=== PATIENT | male | born 1945 | race Caucasian/White ===

== ENCOUNTER → 2016-10-22 | Outpatient (CLI) | payer MEDICARE ==
--- NOTE | 2016-10-22 17:29 | US ---
EXAMINATION TYPE: US venous doppler duplex UE LT DATE OF EXAM: 10/22/2016 COMPARISON: NONE CLINICAL HISTORY: Swelling of left hand R22.32. SIDE PERFORMED: left Grayscale, color doppler, spectral doppler imaging performed of the deep veins of the upper extremiti es. There is normal flow, compressibility and vascular waveforms. IMPRESSION: LEFT ARM: NEGATIVE FOR DVT
[2016-10-22 17:42] LABS: Basophils % (A) 0 %; CH 28.7; CHCM 32.3; Eosinophils # (A) 0.4 k/uL (0-0.7); Eosinophils % (A) 4 %; HCT 39.2 % (39.0-53.0); HDW 2.49; HGB 12.9 gm/dL (13.0-17.5); Luc # (Auto) 0.21; Luc % (Auto) 2; Lymphocytes # (A) 1.6 k/uL (1.0-4.8); Lymphocytes % (A) 15 %; MCH 29.5 pg (25.0-35.0); MCHC 32.9 g/dL (31.0-37.0); MCV 89.5 fL (80.0-100.0); Mean Platelet Volume 7.7; Monocytes # (A) 0.6 k/uL (0-1.0); Monocytes % (A) 5 %; Neutrophils # (A) 7.9 k/uL (1.3-7.7); Neutrophils % (A) 74 %; RBC 4.39 m/uL (4.30-5.90); RDW 12.9 % (11.5-15.5); WBC 10.7 k/uL (3.8-10.6); WBC (Perox) 11.15
[2016-10-22 18:04] LABS: Calcium 9.2 mg/dL (8.4-10.2); Potassium 4.6 mmol/L (3.5-5.1); Total Bilirubin 0.4 mg/dL (0.2-1.3); Total Protein 7.2 g/dL (6.3-8.2); Uric Acid 8.2 mg/dL (3.5-8.5)
[2016-10-22 18:39] LABS: Erythrocyte Sedimentation Rate 69 mm/hr (0-15)
== END | disposition home or self-care (01) ==
LOC: RADUSWWP 16:51
PROVIDERS: ATTEND Family Medicine
DX: R22.32 Localized swelling, mass and lump, left upper limb (principal)
CPT/HCPCS: 36415; 80053; 84550; 85025; 85652

== ENCOUNTER 2016-11-26 13:20 | Emergency (ER) | payer MEDICARE ==
[2016-11-26 13:30] VITALS: BP 147/88; PULSE 74; RESP 20; TEMP 98.1
[2016-11-26] MEDS ORDERED: PROPARACAINE 0.5% OPHTH DROPS 15 ML BTL RIGHT EYE STA (13:36)
--- NOTE | 2016-11-26 14:06 | ED ---
General Adult HPI - General Chief complaint: Eye Problems Stated complaint: FB rt eye (scratched cornea) Time Seen by Provider: 11/26/16 13:33 Source: patient, RN notes reviewed Mode of arrival: ambulatory Limitations: no limitations - History of Present Illness Initial comments: Patient 71-year-old male who presents emergency room today with a chief complaint of possible abrasion to the right eye. He does admit that he was walking just approximately 45 minutes ago when he did not see a tree branch that caught in the right eye. He does been some blurry vision. States he is tetanus not up-to-date as he is ALLERGIC to tetanus. He denies any other complaints or associated symptoms.Patient denies any recent fever, chills, shortness of breath, chest pain, back pain, abdominal pain, nausea or vomiting, numbness or tingling, dysuria or hematuria, constipation or diarrhea, headaches , or any other complaints. - Related Data Previous Rx's Medication Instructions Recorded Levofloxacin [Levaquin] 500 mg PO DAILY #7 tab 10/10/14 Tobramycin 0.3% Ophth Soln [Tobrex 1 - 2 drop BOTH EYES QID 7 Days 11/26/16 0.3% Ophth Soln] Allergies Allergy/AdvReac Type Severity Reaction Status Date / Time Penicillins Allergy Rash/Hives Verified 11/26/16 13:30 Sulfa (Sulfonamide Allergy Rash/Hives Verified 11/26/16 13:30 Antibiotics) Tetanus Vaccines and Toxoid Allergy Rash/Hives Verified 11/26/16 13:30 [Tetanus Vaccines & Toxoid] Review of Systems ROS Statement: Those systems with pertinent positive or pertinent negative responses have been documented in the HPI. ROS Other: All systems not noted in ROS Statement are negative. Past Medical History Past Medical History: No Reported History Additional Past Medical History / Comment(s): 10/08/14 Pt presented to [facility] ER with lower abdominal pain since yesterday. Pain has been getting progressively worse. Pt states he became nauseated and has been vomitting quite a bit. His admitting diagnosis's are: Diverticulitis of intestine, calculus of GB, calculus of kidney. Other HX: Gout bilateral feet and toes. anemia History of Any Multi-Drug Resistant Organisms: None Reported Past Surgical History: No Surgical Hx Reported Additional Past Anesthesia/Blood Transfusion Reaction / Comment(s): Pt states he has never had surgery or blood transfusion. Past Psychological History: No Psychological Hx Reported Smoking Status: Never smoker Past Alcohol Use History: None Reported Past Drug Use History: None Reported - Past Family History Father Family Medical History: No Reported History Additional Family Medical History / Comment(s): Father lived until he was 93 yrs old. Mother Additional Family Medical History / Comment(s): Mother had some sort of Mediterarean disease. General Exam - General Exam Comments Initial Comments: General: The patient is awake and alert, in no distress, and does not appear acutely ill. Eye: Pupils are equal, round and reactive to light, extra-ocular movements are intact. No nystagmus. There is normal conjunctiva bilaterally. No signs of icterus. Ears, nose, mouth and throat: There are moist mucous membranes and no oral lesions. Neck: The neck is supple, there is no tenderness or JVD. Cardiovascular: There is a regular rate and rhythm. No murmur, rub or gallop is appreciated. Respiratory: Lungs are clear to auscultation, respirations are non-labored, breath sounds are equal. No wheezes, stridor, rales, or rhonchi. Musculoskeletal: Normal ROM, no tenderness. Strength 5/5. Sensation intact. Pulses equal bilaterally 2+. Neurological: A&O x 3. CN II-XII intact, There are no obvious motor or sensory deficits. Coordination appears grossly intact. Speech is normal. Skin: Skin is warm and dry and no rashes or lesions are noted. Psychiatric: Cooperative, appropriate mood & affect, normal judgment. Limitations: no limitations Course Vital Signs 11/26/16 13:27 Temperature 98.1 F Pulse Rate 74 Respiratory 20 Rate Blood Pressure 147/88 O2 Sat by Pulse 99 Oximetry Medical Decision Making - Medical Decision Making Patient's right eye was anesthetized with proparacaine here should relieve his symptoms. Was stained with fluorescein checked with Wood's lamp which does reveal corneal abrasion going from the 1:00 to 9 o'clock position and then a second abrasion at approximately 5:00. Lids were inverted showing no foreign body. Patient will be started on antibiotic drops in the emergency room. 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 Advised return for any other concerns. Disposition Clinical Impression: Corneal abrasion Disposition: HOME SELF-CARE Condition: Good Instructions: Corneal Abrasion (ED) Additional Instructions: Please use medication as discussed. Please follow-up with family doctor in the next 2 days of symptoms have not improved. Please return to emergency room if the symptoms increase or worsen or for any other concerns. Prescriptions: Tobramycin 0.3% Ophth Soln [Tobrex 0.3% Ophth Soln] 1 - 2 drop BOTH EYES QID 7 Days Referrals: Yovani Olguin MD [Primary Care Provider] - 1-2 days Time of Disposition: 13:58
== END 2016-11-26 14:14 | disposition home or self-care (01) ==
LOC: EC 13:20
DX: S05.01XA Injury of conjunctiva and corneal abrasion without foreign body, right eye, initial encounter (principal); Z88.0 Allergy status to penicillin; Z88.2 Allergy status to sulfonamides; Z88.7 Allergy status to serum and vaccine; W20.8XXA Other cause of strike by thrown, projected or falling object, initial encounter; Y93.01 Activity, walking, marching and hiking
CPT/HCPCS: 99283

== ENCOUNTER 2020-05-05 08:55 | Inpatient (IN) | payer MEDICARE ==
[2020-05-05] MEDS ORDERED: SODIUM CHLORIDE 0.9% 1,000 ML IV STA ×2 (09:19→11:08)
[2020-05-05] MEDS ORDERED: HYDROmorphone 0.5 MG/0.5 ML SYRINGE IVP STA (09:19)
[2020-05-05 09:42] LABS: Basophils % (A) 0 %; Eosinophils # (A) 0.1 k/uL (0-0.7); Eosinophils % (A) 1 %; HCT 44.1 % (39.0-53.0); HGB 14.9 gm/dL (13.0-17.5); Lymphocytes # (A) 0.9 k/uL (1.0-4.8); Lymphocytes % (A) 10 %; MCH 31.3 pg (25.0-35.0); MCHC 33.8 g/dL (31.0-37.0); MCV 92.4 fL (80.0-100.0); Mean Platelet Volume 7.4; Monocytes # (A) 0.4 k/uL (0-1.0); Monocytes % (A) 4 %; Neutrophils # (A) 7.5 k/uL (1.3-7.7); Neutrophils % (A) 83 %; Platelet Count 181 k/uL (150-450); RBC 4.77 m/uL (4.30-5.90)
--- NOTE | 2020-05-05 09:42 | ED ---
Abdominal Pain HPI - General Chief Complaint: Abdominal Pain Stated Complaint: abd pain Time Seen by Provider: 05/05/20 09:12 Source: patient, RN notes reviewed Mode of arrival: ambulatory Limitations: no limitations - History of Present Illness Initial Comments: This is a 74-year-old male with a prior history of diverticulitis states he had the onset of lower abdominal pain this morning around 6 AM. He states that 6- 10/18 severity nonradiating feels similar to his previous episode of diverticulitis. No fevers chills nausea times sweats constipation diarrhea no dysuria. No other complaints modifying factors MD Complaint: abdominal pain - Related Data Home Medications Medication Instructions Recorded Confirmed Allopurinol [Zyloprim] 200 mg PO DAILY 05/05/20 05/05/20 Cholecalciferol [Vitamin D3 (25 50 mcg PO DAILY 05/05/20 05/05/20 Mcg = 1000 Iu)] Cyanocobalamin [Vitamin B-12] 500 mcg PO DAILY 05/05/20 05/05/20 Lutein 25mg 25 mg PO DAILY 05/05/20 05/05/20 Zeaxanthin 5mg 5 mg PO DAILY 05/05/20 05/05/20 Allergies Allergy/AdvReac Type Severity Reaction Status Date / Time Penicillins Allergy Rash/Hives Verified 05/05/20 09:44 Sulfa (Sulfonamide Allergy Rash/Hives Verified 05/05/20 09:44 Antibiotics) Tetanus Vaccines and Toxoid Allergy Rash/Hives Verified 05/05/20 09:44 [Tetanus Vaccines & Toxoid] Review of Systems ROS Statement: Those systems with pertinent positive or pertinent negative responses have been documented in the HPI. ROS Other: All systems not noted in ROS Statement are negative. Past Medical History Past Medical History: No Reported History Additional Past Medical History / Comment(s): 10/08/14 Pt presented to [facility] ER with lower abdominal pain since yesterday. Pain has been getting progressively worse. Pt states he became nauseated and has been vomitting quite a bit. His admitting diagnosis's are: Diverticulitis of intestine, calculus of GB, calculus of kidney. Other HX: Gout bilateral feet and toes. anemia History of Any Multi-Drug Resistant Organisms: None Reported Past Surgical History: No Surgical Hx Reported Additional Past Anesthesia/Blood Transfusion Reaction / Comment(s): Pt states he has never had surgery or blood transfusion. Past Psychological History: No Psychological Hx Reported Smoking Status: Never smoker Past Alcohol Use History: None Reported Past Drug Use History: None Reported - Past Family History Father Family Medical History: No Reported History Additional Family Medical History / Comment(s): Father lived until he was 93 yrs old. Mother Additional Family Medical History / Comment(s): Mother had some sort of Mediterarean disease. General Exam - General Exam Comments Initial Comments: This is a well-developed well-nourished awake alert oriented times 3 male Limitations: no limitations General appearance: alert, anxious Head exam: Present: atraumatic, normocephalic, normal inspection Eye exam: Present: normal appearance, PERRL, EOMI. Absent: scleral icterus, conjunctival injection, periorbital swelling ENT exam: Present: normal exam, mucous membranes moist Neck exam: Present: normal inspection. Absent: tenderness, meningismus, lymphadenopathy Respiratory exam: Present: normal lung sounds bilaterally. Absent: respiratory distress, wheezes, rales, rhonchi, stridor Cardiovascular Exam: Present: regular rate, normal rhythm, normal heart sounds. Absent: systolic murmur, diastolic murmur, rubs, gallop, clicks GI/Abdominal exam: Present: soft, tenderness (Tenderness palpation over the lower abdominal quadrants some epigastric discomfort.), normal bowel sounds. Absent: distended, guarding, rebound, rigid, bruit, pulsatile mass Rectal exam: Present: deferred Extremities exam: Present: normal inspection, full ROM, normal capillary refill. Absent: tenderness, pedal edema, joint swelling, calf tenderness Back exam: Present: normal inspection Neurological exam: Present: alert, oriented X3, CN II-XII intact Psychiatric exam: Present: normal affect, normal mood Skin exam: Present: warm, dry, intact, normal color. Absent: rash Course Vital Signs 05/05/20 05/05/20 05/05/20 08:58 10:54 11:11 Temperature 98.3 F Pulse Rate 83 76 151 H Respiratory 18 16 Rate Blood Pressure 138/75 136/88 O2 Sat by Pulse 98 97 Oximetry 05/05/20 05/05/20 11:31 11:51 Temperature Pulse Rate 112 H 115 H Respiratory 16 16 Rate Blood Pressure 136/98 132/96 O2 Sat by Pulse 98 98 Oximetry - Reevaluation(s) Reevaluation #1: 05/05/20 11:38 Reevaluation patient he was found to be atrial fibrillation with a rapid ventricular response with complaints of dizziness and vomiting a bilious material. Heart rate was in the 190s. EKG was done and did confirm A. fib RVR this and the rate was 132 QRS 98 QT since QTC 26/[address] configuration abnormal QRS-T angle Reevaluation #2: 05/05/20 12:45 The patient started developing nausea vomiting with bilious emesis noted. He also felt very dizzy he was noted on evaluation be in atrial fibrillation with a rapid ventricular response which is new for him. Appropriate he was instituted. Medical Decision Making - Medical Decision Making I did discuss case Dr. Britton and with the patient patient be admitted with c ardiology consultation as well as surgery consultation. - Lab Data Result diagrams: 05/05/20 09:30 05/05/20 09:30 Lab Results 05/05/20 05/05/20 05/05/20 Range/Units 09:30 09:30 09:30 WBC 9.0 (3.8-10.6) k/uL RBC 4.77 (4.30-5.90) m/uL Hgb 14.9 (13.0-17.5) gm/dL Hct 44.1 (39.0-53.0) % MCV 92.4 (80.0-100.0) fL MCH 31.3 (25.0-35.0) pg MCHC 33.8 (31.0-37.0) g/dL RDW 14.0 (11.5-15.5) % Plt Count 181 (150-450) k/uL MPV 7.4 Neutrophils % 83 % Lymphocytes % 10 % Monocytes % 4 % Eosinophils % 1 % Basophils % 0 % Neutrophils # 7.5 (1.3-7.7) k/uL Lymphocytes # 0.9 L (1.0-4.8) k/uL Monocytes # 0.4 (0-1.0) k/uL Eosinophils # 0.1 (0-0.7) k/uL Basophils # 0.0 (0-0.2) k/uL Sodium 137 (137-145) mmol/L Potassium 4.3 (3.5-5.1) mmol/L Chloride 104 (98-107) mmol/L Carbon Dioxide 28 (22-30) mmol/L Anion Gap 5 mmol/L BUN 19 (9-20) mg/dL Creatinine 1.47 H (0.66-1.25) mg/dL Est GFR (CKD-EPI)AfAm 54 (>60 ml/min/1.73 sqM) Est GFR (CKD-EPI)NonAf 47 (>60 ml/min/1.73 sqM) Glucose 116 H (74-99) mg/dL Plasma Lactic Acid Chilo 1.2 (0.7-2.0) mmol/L Calcium 9.5 (8.4-10.2) mg/dL Total Bilirubin 0.8 (0.2-1.3) mg/dL AST 23 (17-59) U/L ALT 10 (4-49) U/L Alkaline Phosphatase 87 (38-126) U/L Creatine Kinase 94 (55-170) U/L Troponin I (0.000-0.034) ng/mL Total Protein 7.6 (6.3-8.2) g/dL Albumin 4.5 (3.5-5.0) g/dL Amylase 98 (30-110) U/L Lipase 136 (23-300) U/L 05/05/20 Range/Units 09:30 WBC (3.8-10.6) k/uL RBC (4.30-5.90) m/uL Hgb (13.0-17.5) gm/dL Hct (39.0-53.0) % MCV (80.0-100.0) fL MCH (25.0-35.0) pg MCHC (31.0-37.0) g/dL RDW (11.5-15.5) % Plt Count (150-450) k/uL MPV Neutrophils % % Lymphocytes % % Monocytes % % Eosinophils % % Basophils % % Neutrophils # (1.3-7.7) k/uL Lymphocytes # (1.0-4.8) k/uL Monocytes # (0-1.0) k/uL Eosinophils # (0-0.7) k/uL Basophils # (0-0.2) k/uL Sodium (137-145) mmol/L Potassium (3.5-5.1) mmol/L Chloride (98-107) mmol/L Carbon Dioxide (22-30) mmol/L Anion Gap mmol/L BUN (9-20) mg/dL Creatinine (0.66-1.25) mg/dL Est GFR (CKD-EPI)AfAm (>60 ml/min/1.73 sqM) Est GFR (CKD-EPI)NonAf (>60 ml/min/1.73 sqM) Glucose (74-99) mg/dL Plasma Lactic Acid Chilo (0.7-2.0) mmol/L Calcium (8.4-10.2) mg/dL Total Bilirubin (0.2-1.3) mg/dL AST (17-59) U/L ALT (4-49) U/L Alkaline Phosphatase (38-126) U/L Creatine Kinase (55-170) U/L Troponin I <0.012 (0.000-0.034) ng/mL Total Protein (6.3-8.2) g/dL Albumin (3.5-5.0) g/dL Amylase (30-110) U/L Lipase (23-300) U/L - EKG Data -: EKG Interpreted by Me EKG shows normal: sinus rhythm, axis, intervals, QRS complexes, ST-T waves Rate: normal EKG Comments: Normal sinus rhythm of 72. Interval 150 QRS duration 96 QT since QTC 394/431 st-t wave changes - Radiology Data Radiology results: report reviewed (I did review the imaging and report no evidence of diverticulitis however there is evidence of enteritis and a internal hernia cannot be ruled out), image reviewed Critical Care Time Critical Care Time: Yes Total Critical Care Time: 35 Critical Care Time: Critical care time included initial presentation with history physical labs x- rays patient also did require treatment for new onset A. fib RVR which manifest during the emergency department stay. Is also include review of old charting discussed with Dr. Britton multiple reevaluation the patient documentation the above also admission orders Disposition Clinical Impression: Rapid atrial fibrillation, Abdominal pain, Enteritis Disposition: ADMITTED IP TO THIS HOSP Condition: Fair Referrals: Yovani Olguin MD [Primary Care Provider] - 1-2 days
[2020-05-05] MEDS ORDERED: ONDANSETRON 4 MG/2 ML VIAL IVP STA (09:48)
[2020-05-05 09:56] LABS: Albumin 4.5 g/dL (3.5-5.0); Calcium 9.5 mg/dL (8.4-10.2); Potassium 4.3 mmol/L (3.5-5.1); Total Bilirubin 0.8 mg/dL (0.2-1.3); Total Protein 7.6 g/dL (6.3-8.2)
--- NOTE | 2020-05-05 10:18 | XR ---
EXAMINATION TYPE: XR KUB DATE OF EXAM: 05/05/2020 Comparison: 10/08/2014 Clinical History: 74 year-old male abdominal pain Findings: Supine imaging limited for assessment of free air. Mildly distended small bowel loop in the left upper quadrant measuring up to 3.7 cm. Otherwise, no ot her dilated small bowel loops. Mild stool within the right side of the abdomen. Phlebolith in the lef t side of the pelvis. IMPRESSION: Mildly distended small bowel loop in the left upper quadrant measuring up to 3.7 cm could reflect a r egional ileus or enteritis. If concern for early developing small bowel obstruction, recommend follow -up abdominal radiograph including upright exam.
--- NOTE | 2020-05-05 10:51 | CT ---
EXAMINATION TYPE: CT abdomen pelvis w con DATE OF EXAM: 05/05/2020 COMPARISON: 10/08/2014 HISTORY: Abdominal pain CT DLP: 1263.3 mGycm CONTRAST: CT scan of the abdomen and pelvis is performed without Oral Contrast and with IV Contrast, patient in jected with 80 ml mL of Isovue 300. FINDINGS: LUNG BASES-: No visible nodule. No infiltrate. LIVER/GB: There is evidence of cholelithiasis. No space occupying hepatic lesion. Biliary tree is of normal caliber. PANCREAS: No inflammation. No distinct mass. SPLEEN: No splenic enlargement. No lesion seen. ADRENALS: No nodule. No thickening. KIDNEYS/BLADDER: No hydronephrosis. No nephrolithiasis. No distinct renal mass. Urinary bladder g rossly unremarkable. BOWEL: There are mildly dilated loops of small bowel within the left upper quadrant jejunal level romi suring up to 3 cm. There is wall thickening in small bowel mesenteric edema noted. The findings are n onspecific and could reflect enteritis including vascular and infectious etiologies. Internal hernia and partial obstruction also difficult to exclude. Correlate clinically. Remaining small and large kristy wel are of normal caliber. No evidence for free air or abscess. GENITAL ORGANS: No gross abnormality. LYMPH NODES: No greater than 1cm abdominal or pelvic lymph nodes are appreciated. AORTA: No significant abnormality. OSSEOUS STRUCTURES: No significant abnormality is seen. OTHER: No significant additional abnormality is seen. IMPRESSION: 1. There are mildly dilated loops of small bowel within the left upper quadrant jejunal level measuri ng up to 3 cm. There is wall thickening in small bowel mesenteric edema noted. The findings are nonsp ecific and could reflect enteritis including vascular and infectious etiologies. Internal hernia and partial obstruction also difficult to exclude. Correlate clinically.
[2020-05-05] MEDS ORDERED: PROCHLORPERAZINE INJ 10 MG/2 ML VIAL IVP STA (11:08)
[2020-05-05] MEDS ORDERED: DILTIAZEM DRIP BOLUS FROM BAG 1 MG SOLN IV ONE ×2 (11:17→16:10)
[2020-05-05] MEDS: DILTIAZEM 125 MG in SODIUM CHLORIDE 0.9% 100 ML IV SCH ×2 (11:28→16:20)
[2020-05-05] MEDS ORDERED: HEPARIN SODIUM,PORCINE 5,000 UNIT/ML 1 ML VIAL IV ONE (11:33)
[2020-05-05] MEDS ORDERED: HEPARIN SODIUM,PORCINE 5,000 UNIT/ML 1 ML VIAL IV PRN (11:33)
[2020-05-05] MEDS ORDERED: HEPARIN SOD,PORK IN 0.45% NACL 25,000 UNIT in 0.45% NACL 1 250ML.BAG IV SCH (11:45)
[2020-05-05] MEDS ORDERED: NALOXONE 0.4 MG/ML 1 ML VIAL IV PRN (12:48)
[2020-05-05] MEDS: SODIUM CHLORIDE 0.9% 1,000 ML IV SCH ×2 (13:16→16:19)
[2020-05-05] MEDS: ONDANSETRON 4 MG/2 ML VIAL IVP PRN (13:33)
[2020-05-05] MEDS: HYDROmorphone 0.5 MG/0.5 ML SYRINGE IVP PRN ×2 (13:34→21:07)
--- NOTE | 2020-05-05 23:12 | P.HPIM ---
History of Present Illness H&P Date: 05/05/20 Chief Complaint: Abdominal pain History of presenting complaint: This is a pleasant 74-year-old patient who follows with . Chronic stable medical conditions include, diverticulosis, kidney stones asymptomatic, bilateral feet count. This morning patient started having lower abdominal pain and did vomit once. No fever no chills. Normally has 2 bowel movements a day. Did have a softer bowel movement earlier today. In the ER patient found to be in atrial fibrillation rapid ventricular rate. Started IV heparin IV Cardizem. Denies any chest pain and palpitation or shortness of breath. Review of systems: GEN.: Tired EYES: None HEENT: None NECK: None RESPIRATORY: None CARDIOVASCULAR: None GASTROINTESTINAL: As above GENITOURINARY: None MUSCULOSKELETAL: None LYMPHATICS: None HEMATOLOGICAL: None PSYCHIATRY: None NEUROLOGICAL: None Past medical history to include: Diverticulitis, gallbladder calculus, kidney stones, gout, anemia Social history: Lives alone. 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 No history of alcohol or smoking. Family history: Reviewed, noncontributory to presentation Physical examination: VITAL SIGNS: 98.3, 151, 16, 1 36 x 88, 97% room air-upon presentation GENERAL: BMI 29.5, laying in bed, comfortable. EYES: Pupils equal. Conjunctiva normal. HEENT: External appearance of nose and ears normal, oral cavity grossly normal. NECK: JVD not raised; masses not palpable. HEART: Irregular heart sounds; no edema. LUNGS: Respiratory rate normal; clear to auscultation. ABDOMEN: Soft, mid lower abdominal tenderness, no guarding rigidity, liver spleen not palpable, no masses palpable. PSYCH: Alert and oriented x3; mood and affect normal. NEUROLOGICAL: Cranial nerves grossly intact; no facial asymmetry, power and sensation grossly intact. LYMPHATICS: No lymph nodes palpable in the axilla and neck INVESTIGATIONS, reviewed in the clinical context: White count 9 hemoglobin 14.9 platelets 181 potassium 4.3 creatinine 1.47 Troponin I less than 0.012 EKG tracing personally reviewed by me-atrial fibrillation rate of 132 Computed tomography scan abdomen and pelvis with contrast-mildly dilated loops of small bowel within the left upper quadrant change the level measuring up to 3 cm. This was thickening of the small bowel mesentery edema noted. Assessment: -New onset of atrial fibrillation with rapid ventricular rate -Acute enteritis likely viral -Colonic diverticulosis -Chronic gout Plan: Patient put on IV heparin, IV Cardizem. Currently 2-D echocardiogram. Put on clear liquids. IV fluids. Care was discussed the patient and questions answered. Cardiology consulted. Past Medical History Past Medical History: No Reported History, Renal Disease Additional Past Medical History / Comment(s): Diverticulitis of intestine, calculus of GB, calculus of kidney, gout bilateral feet and toes. anemia History of Any Multi-Drug Resistant Organisms: None Reported Past Surgical History: No Surgical Hx Reported Additional Past Anesthesia/Blood Transfusion Reaction / Comment(s): Pt states he has never had surgery or blood transfusion. Smoking Status: Never smoker - Past Family History Father Family Medical History: No Reported History Additional Family Medical History / Comment(s): Father lived until he was 93 yrs old. Mother Additional Family Medical History / Comment(s): Mother had Mediterarean anemia. Medications and Allergies Home Medications Medication Instructions Recorded Confirmed Type Allopurinol [Zyloprim] 200 mg PO DAILY 05/05/20 05/05/20 History Cholecalciferol [Vitamin D3 (25 50 mcg PO DAILY 05/05/20 05/05/20 History Mcg = 1000 Iu)] Cyanocobalamin [Vitamin B-12] 500 mcg PO DAILY 05/05/20 05/05/20 History Lutein 25mg 25 mg PO DAILY 05/05/20 05/05/20 History Zeaxanthin 5mg 5 mg PO DAILY 05/05/20 05/05/20 History Allergies Allergy/AdvReac Type Severity Reaction Status Date / Time Penicillins Allergy Rash/Hives Verified 05/05/20 09:44 Sulfa (Sulfonamide Allergy Rash/Hives Verified 05/05/20 09:44 Antibiotics) Tetanus Vaccines and Toxoid Allergy Rash/Hives Verified 05/05/20 09:44 [Tetanus Vaccines & Toxoid] Physical Exam Vitals: Vital Signs Temp Pulse Pulse Resp BP BP Pulse Ox 05/05/20 20:00 97.8 F 78 17 114/78 96 05/05/20 16:53 114 H 16 129/71 96 05/05/20 15:50 132 H 18 133/81 96 05/05/20 14:25 98 F 114 H 16 152/85 97 05/05/20 13:14 116 H 16 128/86 95 05/05/20 11:51 115 H 16 132/96 98 05/05/20 11:31 112 H 16 136/98 98 05/05/20 11:11 151 H 05/05/20 10:54 76 16 136/88 97 05/05/20 08:58 98.3 F 83 18 138/75 98 Intake and Output 05/05/20 05/05/20 05/06/20 14:59 22:59 06:59 Intake Total 106.853 Balance 106.853 Intake: Intake, IV Titration 106.853 Amount Diltiazem 125 mg In 37.000 Sodium Chloride 0.9% 100 ml @ 7.5 MG/HR 7.5 mls/hr IV .[id number] JOSS Rx#: [id number] Heparin Sod,Pork in 0.45% 69.853 NaCl 25,000 unit In 0.45 % NaCl 1 250ml.bag @ 11 UNITS/KG/HR 9.979 mls/hr IV .Q24H JOSS Rx#: [id number] Other: Voiding Method Urinal Weight 90.718 kg Results CBC & Chem 7: 05/05/20 09:30 05/05/20 09:30 Labs: Abnormal Lab Results - Last 24 Hours (Table) 05/05/20 05/05/20 05/05/20 Range/Units 09:30 09:30 18:03 Lymphocytes # 0.9 L (1.0-4.8) k/uL APTT 35.6 H (22.0-30.0) sec Creatinine 1.47 H (0.66-1.25) mg/dL Glucose 116 H (74-99) mg/dL Thrombosis Risk Factor Assmnt - Choose All That Apply Any of the Below Risk Factors Present?: Yes Each Factor Represents 1 point: Obesity (BMI >25) Other Risk Factors: Yes Each Risk Factor Represents 2 Points: Age 61-74 years Other congenital or acquired thrombophilia - If yes, enter type in comment: No Thrombosis Risk Factor Assessment Total Risk Factor Score: 3 Thrombosis Risk Factor Assessment Level: Moderate Risk
[2020-05-06] MEDS: SODIUM CHLORIDE 0.9% 1,000 ML IV SCH ×3 (05:52→20:21)
[2020-05-06 07:34] LABS: Basophils % (A) 0 %; Eosinophils % (A) 0 %; HCT 42.9 % (39.0-53.0); HGB 14.3 gm/dL (13.0-17.5); Lymphocytes # (A) 0.8 k/uL (1.0-4.8); Lymphocytes % (A) 6 %; MCH 31.2 pg (25.0-35.0); MCHC 33.4 g/dL (31.0-37.0); MCV 93.3 fL (80.0-100.0); Mean Platelet Volume 7.9; Monocytes # (A) 0.7 k/uL (0-1.0); Monocytes % (A) 6 %; Neutrophils # (A) 10.6 k/uL (1.3-7.7); Neutrophils % (A) 86 %; Platelet Count 194 k/uL (150-450); RDW 14.1 % (11.5-15.5); WBC 12.2 k/uL (3.8-10.6)
[2020-05-06 07:51] LABS: Calcium 8.7 mg/dL (8.4-10.2); Potassium 4.1 mmol/L (3.5-5.1)
[2020-05-06] MEDS ORDERED: HEPARIN SODIUM,PORCINE 5,000 UNIT/ML 1 ML VIAL IV PRN (08:28)
[2020-05-06] MEDS ORDERED: PANTOPRAZOLE 40 MG/10 ML VIAL IV SCH (09:00)
[2020-05-06] MEDS ORDERED: APIXABAN 5 MG TAB PO SCH (09:00)
[2020-05-06] MEDS: HYDROmorphone 0.5 MG/0.5 ML SYRINGE IVP PRN ×2 (09:04→12:45)
[2020-05-06] MEDS: HEPARIN SOD,PORK IN 0.45% NACL 25,000 UNIT in 0.45% NACL 1 250ML.BAG IV SCH (09:05)
[2020-05-06] MEDS: ONDANSETRON 4 MG/2 ML VIAL IVP PRN (09:05)
[2020-05-06] MEDS: METOPROLOL TARTRATE 25 MG TAB PO SCH ×2 (09:05→20:21)
--- NOTE | 2020-05-06 09:23 | US ---
EXAMINATION TYPE: US kidneys/renal and bladder DATE OF EXAM: 05/06/2020 COMPARISON: CT from 05/05/2020 CLINICAL HISTORY: Elevated creatinine. EXAM MEASUREMENTS: Right Kidney: 10.1 x 5.9 x 4.9 cm Left Kidney: 9.3 x 4.9 x 4.6 cm Technically difficults study, severe overlying bowel gas, patient of large body habitus. Right Kidney: lobular cortex, limited visualization Left Kidney: lobular cortex, possible mid cyst with internal echoes vs mass measuring 1.2 x 1.2 x 1. 3cm, limited visualization of kidney Bladder: wnl as seen, limited views There is no evidence for hydronephrosis at this point in time. No nephrolithiasis is seen. The urin altagracia bladder is anechoic. Bilateral ureteral jets are seen. IMPRESSION: Possible small cyst left kidney not identified on CT.
--- NOTE | 2020-05-06 09:58 | P.CRDCN ---
History of Present Illness History of present illness: HISTORY OF PRESENTING ILLNESS This is a pleasant 74-year-old male past medical history significant for with diverticulitis, chronic kidney disease and gout. 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 We have been asked to see in consultation for new-onset atrial fibrillation. He presented to the hospital with symptoms of nausea, vomiting and abdominal pain. Initial EKG showed sinus mechanism however and telemetry he was later noted to be in atrial fibrillation. A repeat EKG was obtained revealing A. fib with RVR heart rate 132. He was initiated on IV Cardizem and IV heparin. He has since converted back to sinus mechanism. He denies symptoms of chest pain, shortness of breath, dizziness or palpitations. He continues to have abdominal discomfort is actively vomiting bilious fluid. Abdominal x-ray reveals mildly distended small bowel loop in the left upper quadrant could be reflective of a regional ileus or enteritis. CT of the abdomen and pelvis reveals mildly dilated loops of small bowel within the left upper quadrant, wall thickening in the small bowel with mesenteric edema. Abdominal ultrasound reveals a small cyst in the left kidney with no evidence of hydronephrosis. Laboratory data reviewed, WBC 12.2, hemoglobin 14.3, platelets 194, sodium 138, potassium 4.1, creatinine 1.28, cardiac enzymes negative 1. He takes no daily cardiac medications. REVIEW OF SYSTEMS At the time of my exam: CONSTITUTIONAL: Denies fever or chills. CARDIOVASCULAR: Denies chest pain, shortness of breath, orthopnea, PND or palpitations. RESPIRATORY: Denies cough. GASTROINTESTINAL: Complains of abdominal pain, nausea and vomiting. Denies diarrhea or constipation. MUSCULOSKELETAL: Denies myalgias. NEUROLOGIC: Denies numbness, tingling, headacbe or weakness. ENDOCRINE: Denies fatigue, weight change, polydipsia or polyurina. GENITOURINARY: Denies burning, hematuria or urgency with micturation. HEMATOLOGIC: Denies history of anemia or bleeding. PHYSICAL EXAMINATION Blood pressure 122/72 heart rate 74 afebrile and maintaining oxygen saturation on nasal cannula CONSTITUTIONAL: No apparent distress. HEENT: Head is normocephalic. Pupils are equal, round. Sclerae anicteric. Mucous membranes of the mouth are moist. No JVD. No carotid bruit. CHEST EXAMINATION: Lungs are clear to auscultation. No chest wall tenderness is noted on palpation or with deep breathing. HEART EXAMINATION: Regular rate and rhythm. S1, S2 heard. No murmurs, gallops or rub. ABDOMEN: Soft, nontender. Positive bowel sounds. EXTREMITIES: 2+ peripheral pulses, no lower extremity edema and no calf tenderness. NEUROLOGIC EXAMINATION: Patient is awake, alert and oriented x3. ASSESSMENT New onset paroxysmal atrial fibrillation with rapid ventricular rate. Converted to sinus mechanism Abdominal pain, nausea and vomiting Leukocytosis Chronic kidney disease PLAN Continue heparin infusion for thromboembolic protection until the patient has been evaluated by surgery. When appropriate we will place on Eliquis 5 mg twice a day. Discontinue Cardizem infusion as he is currently maintaining sinus mechanism. Initiate Lopressor 25 mg twice a day. Obtain 2-D echocardiogram and Doppler study to assess cardiac structure and function. Further recommendations to follow based upon clinical course. Thank you kindly for this consultation. Nurse Practitioner note has been reviewed, I agree with a documented findings and plan of care. Patient was seen and examined. Past Medical History Past Medical History: No Reported History, Renal Disease Additional Past Medical History / Comment(s): Diverticulitis of intestine, calculus of GB, calculus of kidney, gout bilateral feet and toes. anemia History of Any Multi-Drug Resistant Organisms: None Reported Past Surgical History: No Surgical Hx Reported Additional Past Anesthesia/Blood Transfusion Reaction / Comment(s): Pt states he has never had surgery or blood transfusion. Smoking Status: Never smoker - Past Family History Father Family Medical History: No Reported History Additional Family Medical History / Comment(s): Father lived until he was 93 yrs old. Mother Additional Family Medical History / Comment(s): Mother had Mediterarean anemia. Medications and Allergies Home Medications Medication Instructions Recorded Confirmed Type Allopurinol [Zyloprim] 200 mg PO DAILY 05/05/20 05/05/20 History Cholecalciferol [Vitamin D3 (25 50 mcg PO DAILY 05/05/20 05/05/20 History Mcg = 1000 Iu)] Cyanocobalamin [Vitamin B-12] 500 mcg PO DAILY 05/05/20 05/05/20 History Lutein 25mg 25 mg PO DAILY 05/05/20 05/05/20 History Zeaxanthin 5mg 5 mg PO DAILY 05/05/20 05/05/20 History Allergies Allergy/AdvReac Type Severity Reaction Status Date / Time Penicillins Allergy Rash/Hives Verified 05/05/20 09:44 Sulfa (Sulfonamide Allergy Rash/Hives Verified 05/05/20 09:44 Antibiotics) Tetanus Vaccines and Toxoid Allergy Rash/Hives Verified 05/05/20 09:44 [Tetanus Vaccines & Toxoid] Physical Exam Vitals: Vital Signs Temp Pulse Pulse Resp BP BP Pulse Ox 05/06/20 04:00 97.6 F 74 18 122/72 96 05/06/20 02:00 64 18 05/06/20 00:00 97.6 F 64 18 105/57 90 L 05/05/20 20:00 97.8 F 78 17 114/78 96 05/05/20 16:53 114 H 16 129/71 96 05/05/20 15:50 132 H 18 133/81 96 05/05/20 14:25 98 F 114 H 16 152/85 97 05/05/20 13:14 116 H 16 128/86 95 05/05/20 11:51 115 H 16 132/96 98 05/05/20 11:31 112 H 16 136/98 98 05/05/20 11:11 151 H 05/05/20 10:54 76 16 136/88 97 Intake and Output 05/05/20 05/06/20 05/06/20 22:59 06:59 14:59 Intake Total 106.853 Output Total 160 160 Balance -53.147 -160 Intake: Intake, IV Titration 106.853 Amount Diltiazem 125 mg In 37.000 Sodium Chloride 0.9% 100 ml @ 7.5 MG/HR 7.5 mls/hr IV .[id number] JOSS Rx#: [id number] Heparin Sod,Pork in 0.45% 69.853 NaCl 25,000 unit In 0.45 % NaCl 1 250ml.bag @ 11 UNITS/KG/HR 9.979 mls/hr IV .Q24H JOSS Rx#: [id number] Output: Urine 160 160 Other: Voiding Method Urinal Urinal # Voids 1 1 Weight 97.8 kg Results 05/06/20 06:58 05/06/20 06:58 Cardiac Enzymes 05/05/20 05/05/20 Range/Units 09:30 09:30 AST 23 (17-59) U/L Troponin I <0.012 (0.000-0.034) ng/mL Coagulation 05/05/20 05/06/20 Range/Units 18:03 00:22 APTT 35.6 H 47.0 H (22.0-30.0) sec CBC 05/06/20 Range/Units 06:58 WBC 12.2 H (3.8-10.6) k/uL RBC 4.60 (4.30-5.90) m/uL Hgb 14.3 (13.0-17.5) gm/dL Hct 42.9 (39.0-53.0) % Plt Count 194 (150-450) k/uL Comprehensive Metabolic Panel 05/05/20 05/06/20 Range/Units 09:30 06:58 Sodium 137 138 (137-145) mmol/L Potassium 4.3 4.1 (3.5-5.1) mmol/L Chloride 104 107 (98-107) mmol/L Carbon Dioxide 28 23 (22-30) mmol/L BUN 19 19 (9-20) mg/dL Creatinine 1.47 H 1.28 H (0.66-1.25) mg/dL Glucose 116 H 123 H (74-99) mg/dL Calcium 9.5 8.7 (8.4-10.2) mg/dL AST 23 (17-59) U/L ALT 10 (4-49) U/L Alkaline Phosphatase 87 (38-126) U/L Total Protein 7.6 (6.3-8.2) g/dL Albumin 4.5 (3.5-5.0) g/dL Current Medications Generic Name Dose Route Start Last Admin Trade Name Freq PRN Reason Stop Dose Admin Heparin Sodium (Porcine) 0 unit 05/06/20 08:28 Heparin Sodium,Porcine 5,000 Unit/Ml 1 Ml Vial IV PER PROTOCOL PRN Low PTT Protocol Hydromorphone HCl 0.5 mg 05/05/20 12:48 05/06/20 09:04 Hydromorphone 0.5 Mg/0.5 Ml Syringe IVP 0.5 mg Q3HR PRN Administration Moderate Pain Sodium Chloride 1,000 mls @ 20 mls/hr 05/05/20 11:08 05/05/20 11:13 Saline 0.9% IV 05/06/20 11:07 Not Given .Q24H STA Diltiazem HCl 125 mg/ Sodium 125 mls @ 7.5 mls/hr 05/05/20 11:30 05/05/20 18:52 Chloride IV 0 mg/hr .[id number] JOSS 0 mls/hr Infusion 7.5 MG/HR Sodium Chloride 1,000 mls @ 130 mls/hr 05/05/20 13:00 05/06/20 05:52 Saline 0.9% IV 130 mls/hr .[id number] JOSS Administration Heparin Sodium/Sodium Chloride 250 mls @ 10.005 mls/hr 05/06/20 08:30 05/06/20 09:05 25,000 unit/ Sodium Chloride IV 10.23 units/kg/hr .Q24H JOSS 10.005 mls/hr Administration Protocol 10.23 UNITS/KG/HR Metoprolol Tartrate 25 mg 05/06/20 09:00 05/06/20 09:05 Metoprolol Tartrate 25 Mg Tab PO 25 mg BID JOSS Administration Naloxone HCl 0.2 mg 05/05/20 12:48 Naloxone 0.4 Mg/Ml 1 Ml Vial IV Q2M PRN Opioid Reversal Ondansetron HCl 4 mg 05/05/20 12:48 05/06/20 09:05 Ondansetron 4 Mg/2 Ml Vial IVP 4 mg Q8HR PRN Administration Nausea And Vomiting Intake and Output 05/05/20 05/06/20 05/06/20 22:59 06:59 14:59 Intake Total 106.853 Output Total 160 160 Balance -53.147 -160 Intake: Intake, IV Titration 106.853 Amount Diltiazem 125 mg In 37.000 Sodium Chloride 0.9% 100 ml @ 7.5 MG/HR 7.5 mls/hr IV .[id number] JOSS Rx#: [id number] Heparin Sod,Pork in 0.45% 69.853 NaCl 25,000 unit In 0.45 % NaCl 1 250ml.bag @ 11 UNITS/KG/HR 9.979 mls/hr IV .Q24H JOSS Rx#: [id number] Output: Urine 160 160 Other: Voiding Method Urinal Urinal # Voids 1 1 Weight 97.8 kg 05/06/20 06:58 05/06/20 06:58
--- NOTE | 2020-05-06 11:40 | ECHOF ---
Referral Reason:afib MEASUREMENTS -------- HEIGHT: 175.3 cm WEIGHT: 97.5 kg BP: IVSd: 1.5 cm (0.6 - 1.1) LVIDd: 1.7 cm (3.9 - 5.3) LVPWd: 1.3 cm (0.6 - 1.1) IVSs: 1.6 cm LVIDs: 1.4 cm LVPWs: 1.6 cm LAESV Index (A-L): 13.55 ml/m Ao Diam: 3.6 cm (2.0 - 3.7) AV Cusp: 1.7 cm (1.5 - 2.6) LA Diam: 4.2 cm (2.7 - 3.8) MV EXCURSION: 30.976 mm (> 18.000) MV EF SLOPE: 331 mm/s (70 - 150) EPSS: 1.5 cm MV E Bridger: 0.73 m/s MV DecT: 234 ms MV A Bridger: 0.81 m/s MV E/A Ratio: 0.90 AR PHT: 474 ms RAP: 5.00 mmHg RVSP: 10.41 mmHg FINDINGS -------- Sinus rhythm. This was a technically adequate study. The left ventricular size is normal. There is moderate concentric left ventricular hypertrophy. O verall left ventricular systolic function is normal with, an EF between 55 - 60 %. The diastolic fi lling pattern is normal for the age of the patient 7.64. The RV was not well visualized. Normal LA size by volume 22+/-6 ml/m2. The right atrial size is normal. The aortic valve is trileaflet and appears structurally normal. Trace amount of aortic regurgitatio n. The mitral valve is normal. There is trace mitral regurgitation. The tricuspid valve appears structurally normal. Trace tricuspid regurgitation present. Right rojas tricular systolic pressure is normal at < 35 mmHg. There is no pulmonic regurgitation present. The aortic root size is normal. IVC Not well visulized. There is no pericardial effusion. CONCLUSIONS -------- 1. There is moderate concentric left ventricular hypertrophy. 2. Overall left ventricular systolic function is normal with, an EF between 55 - 60 %. 3. Normal LA size by volume 22+/-6 ml/m2. 4. Trace amount of aortic regurgitation. 5. There is trace mitral regurgitation. 6. Trace tricuspid regurgitation present. 7. There is no pericardial effusion. GAMBRELER: Keira Saini RDCS
[2020-05-06] MEDS ORDERED: IOPAMIDOL CONTRAST (ORAL USE) VIAL PO PRN (12:14)
[2020-05-06 12:32] LABS: T4, Free (Free Thyroxine) 1.14 ng/dL (0.78-2.19)
--- NOTE | 2020-05-06 13:53 | P.GSCN ---
History of Present Illness Consult date: 05/06/20 History of present illness: CHIEF COMPLAINT: Abdominal pain HISTORY OF PRESENT ILLNESS: This is a 74-year-old male with a known history of diverticulosis, kidney stones and chronic kidney disease. Patient presented to the emergency room with complaints of mid lower abdominal pain that had sudden onset yesterday. He has been vomiting. Last bowel movement was yesterday and reported normal. He is passing gas. He had an initial computed tomography scan the abdomen and pelvis that was completed with no contrast. There was evidence of mildly dilated loops of small bowel within the left upper quadrant jejunal level measuring up to 3 cm. There is wall thickening in the small bowel mesenteric edema noted. Findings are nonspecific and could reflect enteritis in cluding vascular and infectious diseases. Internal hernia and partial obstruction also difficult to exclude. Surgical consult was placed in regards to patient's abdominal pain and concerns of internal hernia. Computed tomography scan the abdomen and pelvis with oral contrast has been ordered. Chris khan also was found to be in a new onset of atrial fibrillation with rapid ventricular response. Cardiology is been through to evaluate him. They have him on IV heparin and is switch him from Cardizem to metoprolol. Patient denies any fever, chills or sweats. PAST MEDICAL HISTORY: See list. PAST SURGICAL HISTORY: See list. MEDICATIONS: See list. ALLERGIES: See list. SOCIAL HISTORY: No illicit drug use. REVIEW OF SYSTEMS: CONSTITUTIONAL: Denies fever or chills. HEENT: Denies blurred vision, vision changes, or eye pain. Denies hemoptysis CARDIOVASCULAR: Denies chest pain or pressure. RESPIRATORY: No shortness of breath. GASTROINTESTINAL: See HPI for pertinent findings HEMATOLOGIC: Denies bleeding disorders. GENITOURINARY: Denies any blood in urine or increased urinary frequency. SKIN: Denies pruitis. Denies rash. PHYSICAL EXAM: VITAL SIGNS: Reviewed GENERAL: Well-developed in no acute distress. HEENT: No sclera icterus. Extraocular movements grossly intact. Moist buccal mucosa. Head is atraumatic, normocephalic. No nasal drainage. ABDOMEN: Soft. Nondistended. Mid lower abdominal tenderness with palpation NEUROLOGIC: Alert and oriented. Cranial nerves II through XII grossly intact. LABORATORY DATA: WBC 12.2 creatinine 1.28 IMAGING: computed tomography scan the abdomen and pelvis that was completed with no contrast. There was evidence of mildly dilated loops of small bowel within the left upper quadrant jejunal level measuring up to 3 cm. There is wall thickening in the small bowel mesenteric edema noted. Findings are nonspecific and could reflect enteritis including vascular and infectious diseases. Internal hernia and partial obstruction also difficult to exclude. ASSESSMENT: 1. Abdominal pain with computed tomography scan showing evidence of mildly dilated loops of small bowel within the left upper quadrant jejunal level measur ing up to 3 cm. There is wall thickening in the small bowel mesenteric edema noted. Concerns for possible internal hernia 2. New onset atrial fibrillation with rapid ventricular response. Followed by cardiology PLAN: -Computed tomography scan of the abdomen and pelvis with oral contrast ordered for further evaluation of patient's abdominal pain -Keep patient nothing by mouth for now until computed tomography scan results reviewed Thank you for this consultation Physician Crew Lead note has been reviewed by physician. Signing provider agrees with the documented findings, assessment, and plan of care. Past Medical History Past Medical History: No Reported History, Renal Disease Additional Past Medical History / Comment(s): Diverticulitis of intestine, calculus of GB, calculus of kidney, gout bilateral feet and toes. anemia History of Any Multi-Drug Resistant Organisms: None Reported Past Surgical History: No Surgical Hx Reported Additional Past Anesthesia/Blood Transfusion Reaction / Comm: Pt states he has never had surgery or blood transfusion. Smoking Status: Never smoker - Past Family History Father Family Medical History: No Reported History Additional Family Medical History / Comment(s): Father lived until he was 93 yrs old. Mother Additional Family Medical History / Comment(s): Mother had Mediterarean anemia. Medications and Allergies Home Medications Medication Instructions Recorded Confirmed Type Allopurinol [Zyloprim] 200 mg PO DAILY 05/05/20 05/05/20 History Cholecalciferol [Vitamin D3 (25 50 mcg PO DAILY 05/05/20 05/05/20 History Mcg = 1000 Iu)] Cyanocobalamin [Vitamin B-12] 500 mcg PO DAILY 05/05/20 05/05/20 History Lutein 25mg 25 mg PO DAILY 05/05/20 05/05/20 History Zeaxanthin 5mg 5 mg PO DAILY 05/05/20 05/05/20 History Allergies Allergy/AdvReac Type Severity Reaction Status Date / Time Penicillins Allergy Rash/Hives Verified 05/05/20 09:44 Sulfa (Sulfonamide Allergy Rash/Hives Verified 05/05/20 09:44 Antibiotics) Tetanus Vaccines and Toxoid Allergy Rash/Hives Verified 05/05/20 09:44 [Tetanus Vaccines & Toxoid] Surgical - Exam Vital Signs Temp Pulse Resp BP Pulse Ox 98.3 F 83 18 138/75 98 05/05/20 08:58 05/05/20 08:58 05/05/20 08:58 05/05/20 08:58 05/05/20 08:58 Results - Labs 05/06/20 06:58 05/06/20 06:58 Abnormal Lab Results - Last 24 Hours (Table) 05/05/20 05/06/20 05/06/20 Range/Units 18:03 00:22 06:58 WBC 12.2 H (3.8-10.6) k/uL Neutrophils # 10.6 H (1.3-7.7) k/uL Lymphocytes # 0.8 L (1.0-4.8) k/uL APTT 35.6 H 47.0 H (22.0-30.0) sec Creatinine (0.66-1.25) mg/dL Glucose (74-99) mg/dL TSH (0.465-4.680) mIU/L 05/06/20 05/06/20 Range/Units 06:58 06:58 WBC (3.8-10.6) k/uL Neutrophils # (1.3-7.7) k/uL Lymphocytes # (1.0-4.8) k/uL APTT (22.0-30.0) sec Creatinine 1.28 H (0.66-1.25) mg/dL Glucose 123 H (74-99) mg/dL TSH 0.373 L (0.465-4.680) mIU/L Diabetes panel 05/06/20 Range/Units 06:58 Sodium 138 (137-145) mmol/L Potassium 4.1 (3.5-5.1) mmol/L Chloride 107 (98-107) mmol/L Carbon Dioxide 23 (22-30) mmol/L BUN 19 (9-20) mg/dL Creatinine 1.28 H (0.66-1.25) mg/dL Glucose 123 H (74-99) mg/dL Calcium 8.7 (8.4-10.2) mg/dL Thyroid panel 05/06/20 Range/Units 06:58 TSH 0.373 L (0.465-4.680) mIU/L Calcium panel 05/06/20 Range/Units 06:58 Calcium 8.7 (8.4-10.2) mg/dL Pituitary panel 05/06/20 05/06/20 Range/Units 06:58 06:58 Sodium 138 (137-145) mmol/L Potassium 4.1 (3.5-5.1) mmol/L Chloride 107 (98-107) mmol/L Carbon Dioxide 23 (22-30) mmol/L BUN 19 (9-20) mg/dL Creatinine 1.28 H (0.66-1.25) mg/dL Glucose 123 H (74-99) mg/dL Calcium 8.7 (8.4-10.2) mg/dL TSH 0.373 L (0.465-4.680) mIU/L Adrenal panel 05/06/20 Range/Units 06:58 Sodium 138 (137-145) mmol/L Potassium 4.1 (3.5-5.1) mmol/L Chloride 107 (98-107) mmol/L Carbon Dioxide 23 (22-30) mmol/L BUN 19 (9-20) mg/dL Creatinine 1.28 H (0.66-1.25) mg/dL Glucose 123 H (74-99) mg/dL Calcium 8.7 (8.4-10.2) mg/dL
--- NOTE | 2020-05-06 15:14 | CT ---
EXAMINATION TYPE: CT abdomen pelvis wo con DATE OF EXAM: 05/06/2020 COMPARISON: Prior CT 05/05/2020 HISTORY: Abdominal pain with vomiting CT DLP: 778.3 mGycm Automated exposure control for dose reduction was used. TECHNIQUE: Helical acquisition of images from the lung bases through the pelvis. Patient received or al contrast only. FINDINGS: LUNG BASES: Some minimal basilar atelectasis, minute right pleural effusion noted. AORTA: No significant abnormality is appreciataed. LIVER/GB: Liver shows low attenuation likely due to hepatic steatosis. Gallbladder shows luminal ston es, some possible vicarious excretion of contrast present within the gallbladder, similar appearance to prior exam. PANCREAS: No significant abnormality is seen. SPLEEN: No significant abnormality is seen. ADRENALS: No significant abnormality is seen. KIDNEYS: No significant abnormality is seen. REPRODUCTIVE ORGANS: Prostate is again enlarged as on prior exam, inferior impression on the urinary bladder is noted URINARY BLADDER: Contrast material noted within the urinary bladder likely due to patient's prior BOWEL: Colonic wall thickening is suspected. Small bowel loops also show some possible wall thickeni ng, increased attenuation within the mesenteric fat is noted. Diverticular change noted along the sig moid colon. FREE AIR: No Free Air is visible. ASCITES: Small amount of ascites has developed in the interval about the liver inferior margin, sple en, small amount of fluid in the pelvis. PELVIC ADENOPATHY: None visualized. RETROPERITONEAL ADENOPATHY: No Retroperitoneal Adenopathy visible. OSSEOUS STRUCTURES: Sclerotic focus noted in the right sacral ala, there is facet arthropathy, degen erative disc disease in the visualized spine. IMPRESSION: CORRELATE FOR ENTERITIS, COLITIS, INTERVAL DEVELOPMENT OF SMALL AMOUNT OF ASCITES. NONCONTRAST EXAM. CHOLELITHIASIS, INTERVAL SMALL EFFUSION, PROBABLE HEPATIC STEATOSIS.
--- NOTE | 2020-05-06 21:48 | P.PN ---
Progress Note - Text Progress Note Date: 05/06/20 Chief Complaint: Abdominal pain History of presenting complaint: This is a pleasant 74-year-old patient who follows with . Chronic stable medical conditions include, diverticulosis, kidney stones asymptomatic, bilateral feet count. This morning patient started having lower abdominal pain and did vomit once. No fever no chills. Normally has 2 bowel movements a day. Did have a softer bowel movement earlier today. In the ER patient found to be in atrial fibrillation rapid ventricular rate. Started IV heparin IV Cardizem. Denies any chest pain and palpitation or shortness of breath. Admitted with A. luke with rapid ventricular rate and possible enteritis, felt to be vital. Today-on IV heparin. Started on Lopressor. IV Cardizem discontinued. IV fluids. Repeat computed tomography scan ordered. Was nothing by mouth. No nausea vomiting. Abdominal pain improved by this afternoon. Convert to sinus rhythm. Review of systems: Was done for constitutional, cardiovascular, GI, pulmonary. relevant finding as above Active Medications Heparin Sodium (Porcine) (Heparin Sodium,Porcine 5,000 Unit/Ml 1 Ml Vial) 0 unit IV PER PROTOCOL PRN; Protocol PRN Reason: Low PTT Hydromorphone HCl (Hydromorphone 0.5 Mg/0.5 Ml Syringe) 0.5 mg IVP Q3HR PRN PRN Reason: Moderate Pain Last Admin: 05/06/20 12:45 Dose: 0.5 mg Documented by: Sodium Chloride (Saline 0.9%) 1,000 mls @ 130 mls/hr IV .[id number] [facility] Last Admin: 05/06/20 20:21 Dose: 130 mls/hr Documented by: Heparin Sodium/Sodium Chloride (25,000 unit/ Sodium Chloride) 250 mls @ 10.005 mls/hr IV .Q24H JOSS; Protocol Last Admin: 05/06/20 09:05 Dose: 10.23 units/kg/hr, 10.005 mls/hr Documented by: Iopamidol (Iopamidol Contrast (Oral Use) Vial) 30 ml PO Q60M PRN PRN Reason: CT Scan Stop: 05/07/20 12:15 Last Admin: 05/06/20 12:43 Dose: 30 ml Documented by: Metoprolol Tartrate (Metoprolol Tartrate 25 Mg Tab) 25 mg PO BID [facility] Last Admin: 05/06/20 20:21 Dose: 25 mg Documented by: Naloxone HCl (Naloxone 0.4 Mg/Ml 1 Ml Vial) 0.2 mg IV Q2M PRN PRN Reason: Opioid Reversal Ondansetron HCl (Ondansetron 4 Mg/2 Ml Vial) 4 mg IVP Q8HR PRN PRN Reason: Nausea And Vomiting Last Admin: 05/06/20 09:05 Dose: 4 mg Documented by: Past medical history to include: Diverticulitis, gallbladder calculus, kidney stones, gout, anemia Social history: Lives alone. 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 No history of alcohol or smoking. Family history: Reviewed, noncontributory to presentation Physical examination: VITAL SIGNS: 99.4, 35, 18, 133/96, 94% GENERAL: BMI 29.5, laying in bed, comfortable. EYES: Pupils equal. Conjunctiva normal. HEENT: External appearance of nose and ears normal, oral cavity grossly normal. NECK: JVD not raised; masses not palpable. HEART: First seconds are normal; no edema. LUNGS: Respiratory rate normal; clear to auscultation. ABDOMEN: Soft, improved abdominal tenderness, no guarding rigidity, liver spleen not palpable, no masses palpable. PSYCH: Alert and oriented x3; mood and affect normal. INVESTIGATIONS, reviewed in the clinical context: May 06: White count 12.2 hemoglobin 14.3 potassium 4.1 creatinine 1.28 2-D echocardiogram-moderate concentric LVH. EF 55-60% Repeat computed tomography scan of the abdomen pelvis [May 06]: Liver shows low attenuation likely hepatic steatosis. Gallbladder-luminal stones. Prostate enlarged. Colonic wall thickening is suspected. Small bowel loops also shows some possible wall thickening. Diabetic leg change in the sigmoid colon. Increased attenuation within the mesenteric fat White count 9 hemoglobin 14.9 platelets 181 potassium 4.3 creatinine 1.47 Troponin I less than 0.012 EKG tracing personally reviewed by me-atrial fibrillation rate of 132 Computed tomography scan abdomen and pelvis with contrast-mildly dilated loops of small bowel within the left upper quadrant change the level measuring up to 3 cm. This was thickening of the small bowel mesentery edema noted. Assessment: -Paroxysmal atrial fibrillation with rapid ventricular rate-noted wanted to sinus rhythm -Acute enteritis and colitis likely viral -Colonic diverticulosis -Chronic gout -Colonic diverticulosis -Gallstones incidental pneumatic -Hepatic steatosis -Hypertensive heart disease Plan: on IV heparin, IV Cardizem-stop. Put on Lopressor.. Put on clear liquids. Follow with cardiology and surgery..
[2020-05-07] MEDS: SODIUM CHLORIDE 0.9% 1,000 ML IV SCH ×3 (04:00→18:27)
[2020-05-07 07:48] LABS: Basophils % (A) 0 %; Eosinophils # (A) 0.1 k/uL (0-0.7); Eosinophils % (A) 1 %; HCT 38.5 % (39.0-53.0); HGB 12.4 gm/dL (13.0-17.5); Lymphocytes # (A) 0.8 k/uL (1.0-4.8); Lymphocytes % (A) 14 %; MCH 30.3 pg (25.0-35.0); MCHC 32.3 g/dL (31.0-37.0); MCV 93.8 fL (80.0-100.0); Monocytes # (A) 0.6 k/uL (0-1.0); Monocytes % (A) 10 %; Neutrophils # (A) 4.3 k/uL (1.3-7.7); Neutrophils % (A) 73 %; Platelet Count 158 k/uL (150-450); RDW 14.5 % (11.5-15.5); WBC 5.9 k/uL (3.8-10.6)
[2020-05-07] MEDS: METOPROLOL TARTRATE 25 MG TAB PO SCH ×2 (08:27→20:21)
[2020-05-07] MEDS: HEPARIN SOD,PORK IN 0.45% NACL 25,000 UNIT in 0.45% NACL 1 250ML.BAG IV SCH (08:30)
--- NOTE | 2020-05-07 13:11 | P.PN ---
Subjective HISTORY OF PRESENTING ILLNESS This is a pleasant 74-year-old male past medical history significant for with diverticulitis, chronic kidney disease and gout. Denies prior history of coronary artery disease and does not follow in the office with a senior principal. He is seen and examined sitting up in bed in no acute distress. Telemetry tracings reveal he is maintaining sinus mechanism with no further episodes of atrial fibrillation. CT of the abdomen and pelvis reveals possible colitis versus enteritis. Surgery has no plans for surgical intervention at this time. Echocardiogram obtained reveals preserved LV systolic function with ejection fraction 55-60%. He has had no further episodes of abdominal pain, nausea or vomiting. He has no chest pain, shortness of breath, dizziness or palpitations. Blood pressure 128/84 heart rate 70 afebrile maintaining oxygen saturation on room air. Laboratory data reviewed, WBC 5.9 hemoglobin 12.4 and platelets 158. PHYSICAL EXAMINATION CONSTITUTIONAL: No apparent distress. HEENT: Head is normocephalic. Pupils are equal, round. Sclerae anicteric. Mucous membranes of the mouth are moist. No JVD. No carotid bruit. CHEST EXAMINATION: Lungs are clear to auscultation. No chest wall tenderness is noted on palpation or with deep breathing. HEART EXAMINATION: Regular rate and rhythm. S1, S2 heard. No murmurs, gallops or rub. EXTREMITIES: 2+ peripheral pulses, no lower extremity edema and no calf tenderness. ASSESSMENT New onset paroxysmal atrial fibrillation with rapid ventricular rate. Converted to sinus mechanism Abdominal pain, nausea and vomiting Leukocytosis Chronic kidney disease PLAN Discontinue heparin infusion. CHADS-VASC score is only 1. A-fib could have been a brief situational episode. On discharge we will apply an event monitor for further outpatient monitoring. Follow up in the office with Dr. Woodson in 4-6 weeks. Nurse Practitioner note has been reviewed, I agree with a documented findings and plan of care. Patient was seen and examined. Objective - Vital Signs Vital signs: Vital Signs Temp 98.8 F 05/07/20 12:02 Pulse 70 05/07/20 12:02 Resp 18 05/07/20 08:00 BP 128/84 05/07/20 12:02 Pulse Ox 96 05/07/20 12:02 Intake & Output 05/06/20 05/07/20 05/07/20 18:59 06:59 18:59 Intake Total 0 1254.284 Output Total 175 Balance 0 -175 1254.284 Weight 91.6 kg Intake: Intake, IV Titration 234.284 Amount Heparin Sod,Pork in 0.45% 234.284 NaCl 25,000 unit In 0.45 % NaCl 1 250ml.bag @ 10. 23 UNITS/KG/HR 10.005 mls /hr IV .Q24H [facility] Rx#: [id number] Oral 0 1020 Output: Urine 175 Other: Voiding Method Toilet Urinal # Voids 1 1 # Bowel Movements 1 - Labs CBC & Chem 7: 05/07/20 06:39 05/06/20 06:58 Labs: Abnormal Lab Results - Last 24 Hours (Table) 05/07/20 05/07/20 Range/Units 06:39 06:39 RBC 4.10 L (4.30-5.90) m/uL Hgb 12.4 L (13.0-17.5) gm/dL Hct 38.5 L (39.0-53.0) % Lymphocytes # 0.8 L (1.0-4.8) k/uL APTT 50.8 H (22.0-30.0) sec
--- NOTE | 2020-05-07 13:28 | P.PN ---
Subjective Progress Note Date: 05/07/20 CHIEF COMPLAINT: Abdominal pain HISTORY OF PRESENT ILLNESS: Patient is being followed for his abdominal pain. He had a computed tomography scan of the abdomen and pelvis with oral contrast only results show correlate for enteritis, colitis, and she will development of small amount of ascites. Cholelithiasis, interval small effusion and probable hepatic steatosis. Patient is now having bowel movements. They started yesterday. He reports them as being loose with some solid pieces. He reports a decrease in his mid abdominal pain. He denies any nausea or vomiting. He's currently on a clear liquid diet and will be advanced to full speed. He is afebrile. WBC 5.9 down from 12.2 creatinine 1.28 PHYSICAL EXAM: VITAL SIGNS: Reviewed. GENERAL: Well-developed in no acute distress. HEENT: No sclera icterus. Extraocular movements grossly intact. Moist buccal mucosa. Head is atraumatic, normocephalic. ABDOMEN: Soft. Nondistended. Mild tenderness in the mid abdomen NEUROLOGIC: Alert and oriented. Cranial nerves II through XII grossly intact. ASSESSMENT: 1. Abdominal pain likely due to enteritis or possible colitis. No evidence of an internal hernia 2. New onset atrial fibrillation with rapid ventricular response followed by cardiology PLAN: -No surgical intervention planned -Advance diet to full liquids, recommend to advance diet slowly -Continue antibiotics Physician Toppiece Chopper note has been reviewed by physician. Signing provider agrees with the documented findings, assessment, and plan of care. Objective - Vital Signs Vital signs: Vital Signs Temp 98.8 F 05/07/20 12:02 Pulse 70 05/07/20 12:02 Resp 18 05/07/20 08:00 BP 128/84 05/07/20 12:02 Pulse Ox 96 05/07/20 12:02 Intake & Output 05/06/20 05/07/20 05/07/20 18:59 06:59 18:59 Intake Total 0 1254.284 Output Total 175 Balance 0 -175 1254.284 Weight 91.6 kg Intake: Intake, IV Titration 234.284 Amount Heparin Sod,Pork in 0.45% 234.284 NaCl 25,000 unit In 0.45 % NaCl 1 250ml.bag @ 10. 23 UNITS/KG/HR 10.005 mls /hr IV .Q24H [facility] Rx#: [id number] Oral 0 1020 Output: Urine 175 Other: Voiding Method Toilet Urinal # Voids 1 1 # Bowel Movements 1 - Labs CBC & Chem 7: 05/07/20 06:39 05/06/20 06:58 Labs: Abnormal Lab Results - Last 24 Hours (Table) 05/07/20 05/07/20 Range/Units 06:39 06:39 RBC 4.10 L (4.30-5.90) m/uL Hgb 12.4 L (13.0-17.5) gm/dL Hct 38.5 L (39.0-53.0) % Lymphocytes # 0.8 L (1.0-4.8) k/uL APTT 50.8 H (22.0-30.0) sec
--- NOTE | 2020-05-07 21:36 | P.PN ---
Progress Note - Text Progress Note Date: 05/07/20 Chief Complaint: Abdominal pain History of presenting complaint: This is a pleasant 74-year-old patient who follows with . Chronic stable medical conditions include, diverticulosis, kidney stones asymptomatic, bilateral feet count. This morning patient started having lower abdominal pain and did vomit once. No fever no chills. Normally has 2 bowel movements a day. Did have a softer bowel movement earlier today. In the ER patient found to be in atrial fibrillation rapid ventricular rate. Started IV heparin IV Cardizem. Denies any chest pain and palpitation or shortness of breath. Admitted with Maximilian butler with rapid ventricular rate and possible enteritis, felt to be vital. Today-remains in sinus rhythm. Advanced to regular diet. No abdominal pain. No nausea vomiting. Feeling better. Not for anticoagulation per cardiology because of low Luis score of 1 Review of systems: Was done for constitutional, cardiovascular, GI, pulmonary. relevant finding as above Active Medications Heparin Sodium (Porcine) (Heparin Sodium,Porcine 5,000 Unit/Ml 1 Ml Vial) 0 unit IV PER PROTOCOL PRN; Protocol PRN Reason: Low PTT Hydromorphone HCl (Hydromorphone 0.5 Mg/0.5 Ml Syringe) 0.5 mg IVP Q3HR PRN PRN Reason: Moderate Pain Last Admin: 05/06/20 12:45 Dose: 0.5 mg Documented by: Sodium Chloride (Saline 0.9%) 1,000 mls @ 130 mls/hr IV .Q7H42M [facility] Last Admin: 05/07/20 18:27 Dose: 130 mls/hr Documented by: Metoprolol Tartrate (Metoprolol Tartrate 25 Mg Tab) 25 mg PO BID [facility] Last Admin: 05/07/20 20:21 Dose: 25 mg Documented by: Naloxone HCl (Naloxone 0.4 Mg/Ml 1 Ml Vial) 0.2 mg IV Q2M PRN PRN Reason: Opioid Reversal Ondansetron HCl (Ondansetron 4 Mg/2 Ml Vial) 4 mg IVP Q8HR PRN PRN Reason: Nausea And Vomiting Last Admin: 05/06/20 09:05 Dose: 4 mg Documented by: Past medical history to include: Diverticulitis, gallbladder calculus, kidney stones, gout, anemia Social history: Lives alone. 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 No history of alcohol or smoking. Family history: Reviewed, noncontributory to presentation Physical examination: VITAL SIGNS: 98.4, 66, 18, 123.77, 97% room air GENERAL: BMI 29.5, laying in bed, comfortable. EYES: Pupils equal. Conjunctiva normal. HEENT: External appearance of nose and ears normal, oral cavity grossly normal. NECK: JVD not raised; masses not palpable. HEART: First seconds are normal; no edema. LUNGS: Respiratory rate normal; clear to auscultation. ABDOMEN: Soft, no tenderness, no guarding rigidity, liver spleen not palpable, no masses palpable. PSYCH: Alert and oriented x3; mood and affect normal. INVESTIGATIONS, reviewed in the clinical context: May 06: White count 12.2 hemoglobin 14.3 potassium 4.1 creatinine 1.28 2-D echocardiogram-moderate concentric LVH. EF 55-60% Repeat computed tomography scan of the abdomen pelvis [May 06]: Liver shows low attenuation likely hepatic steatosis. Gallbladder-luminal stones. Prostate enlarged. Colonic wall thickening is suspected. Small bowel loops also shows some possible wall thickening. Diabetic leg change in the sigmoid colon. Increased attenuation within the mesenteric fat White count 9 hemoglobin 14.9 platelets 181 potassium 4.3 creatinine 1.47 Troponin I less than 0.012 EKG tracing personally reviewed by me-atrial fibrillation rate of 132 Computed tomography scan abdomen and pelvis with contrast-mildly dilated loops of small bowel within the left upper quadrant change the level measuring up to 3 cm. This was thickening of the small bowel mesentery edema noted. Assessment: -Paroxysmal atrial fibrillation with rapid ventricular rate-noted converted to sinus rhythm. No endocrine admission because of low Luis score. -Acute enteritis and colitis likely [id number] -Colonic diverticulosis -Chronic gout -Colonic diverticulosis -Gallstones incidental pneumatic -Hepatic steatosis -Hypertensive heart disease Plan: Continue current medication. Diet advanced. DC IV fluids. Home tomorrow.
[2020-05-08 07:40] LABS: Basophils % (A) 0 %; Eosinophils # (A) 0.2 k/uL (0-0.7); Eosinophils % (A) 5 %; HCT 37.7 % (39.0-53.0); HGB 12.5 gm/dL (13.0-17.5); Lymphocytes # (A) 0.9 k/uL (1.0-4.8); Lymphocytes % (A) 18 %; MCH 31.3 pg (25.0-35.0); MCHC 33.2 g/dL (31.0-37.0); MCV 94.3 fL (80.0-100.0); Mean Platelet Volume 7.5; Monocytes # (A) 0.4 k/uL (0-1.0); Monocytes % (A) 8 %; Neutrophils # (A) 3.5 k/uL (1.3-7.7); Neutrophils % (A) 67 %; Platelet Count 142 k/uL (150-450); RDW 14.2 % (11.5-15.5); WBC 5.2 k/uL (3.8-10.6)
[2020-05-08] MEDS: METOPROLOL TARTRATE 25 MG TAB PO SCH (09:33)
[2020-05-08 09:44] VITALS: RESP 18
--- NOTE | 2020-05-08 11:09 | P.PN ---
Subjective Progress Note Date: 05/08/20 CHIEF COMPLAINT: Abdominal pain HISTORY OF PRESENT ILLNESS: Patient is being followed for his abdominal pain. He had a computed tomography scan of the abdomen and pelvis with oral contrast only results show correlate for enteritis, colitis, and she will development of small amount of ascites. Cholelithiasis, interval small effusion and probable hepatic steatosis. Patient reports having bowel movements. His abdominal pain has improved. Denies any nausea or vomiting. He is tolerating regular diet. Afebrile. WBC 5.2 he is anticipating discharge later today. PHYSICAL EXAM: VITAL SIGNS: Reviewed. GENERAL: Well-developed in no acute distress. HEENT: No sclera icterus. Extraocular movements grossly intact. Moist buccal mucosa. Head is atraumatic, normocephalic. ABDOMEN: Soft. Nondistended. Mild tenderness in the mid abdomen NEUROLOGIC: Alert and oriented. Cranial nerves II through XII grossly intact. ASSESSMENT: 1. Abdominal pain likely due to enteritis or possible colitis. No evidence of an internal hernia on computed tomography scan 2. Asymptomatic cholelithiasis 3. New onset atrial fibrillation with rapid ventricular response followed by cardiology PLAN: -No surgical intervention planned -Continue regular diet -Continue antibiotics -Okay to discharge her surgical standpoint Physician Earth Science Professor note has been reviewed by physician. Signing provider agrees with the documented findings, assessment, and plan of care. Objective - Vital Signs Vital signs: Vital Signs Temp 99.8 F H 05/08/20 09:33 Pulse 64 05/08/20 09:33 Resp 18 05/08/20 09:33 BP 117/67 05/08/20 09:33 Pulse Ox 96 05/08/20 09:33 Intake & Output 05/07/20 05/08/20 05/08/20 18:59 06:59 18:59 Intake Total 2744.284 390 240 Balance 2744.284 390 240 Weight 91.4 kg Intake: Intake, IV Titration 1474.284 390 Amount Heparin Sod,Pork in 0.45% 234.284 NaCl 25,000 unit In 0.45 % NaCl 1 250ml.bag @ 10. 23 UNITS/KG/HR 10.005 mls /hr IV .Q24H [facility] Rx#: [id number] Sodium Chloride 0.9% 1, 1240 390 000 ml @ 130 mls/hr IV . Q7H42M [facility] Rx#:[id number] Oral 1270 240 Other: Voiding Method Toilet Toilet Toilet Urinal Urinal Urinal # Voids 1 - Labs CBC & Chem 7: 05/08/20 06:44 05/06/20 06:58 Labs: Abnormal Lab Results - Last 24 Hours (Table) 05/08/20 Range/Units 06:44 RBC 4.00 L (4.30-5.90) m/uL Hgb 12.5 L (13.0-17.5) gm/dL Hct 37.7 L (39.0-53.0) % Plt Count 142 L (150-450) k/uL Lymphocytes # 0.9 L (1.0-4.8) k/uL
[2020-05-08 13:22] VITALS: BP 125/72; PULSE 68; TEMP 99.7
--- NOTE | 2020-05-09 17:24 | P.DS ---
Providers Date of admission: 05/05/20 12:48 Expected date of discharge: 05/09/20 Attending physician: Rafael Britton Consults: 05/05/20 12:51 Consult Physician Routine Consulting Provider: Oanh Woodson Consult Reason/Comments: New-onset A. fib Do you want consulting provider notified?: Yes Consult Physician Routine Consulting Provider: Sharif Hoffman Consult Reason/Comments: Abdominal pain, enteritis, rule out internal hernia Do you want consulting provider notified?: Yes Primary care physician: [facility] Course: Chief Complaint: Abdominal pain History of presenting complaint: This is a pleasant 74-year-old patient who follows with . Chronic stable medical conditions include, diverticulosis, kidney stones asymptomatic, bilateral feet count. This morning patient started having lower abdominal pain and did vomit once. No fever no chills. Normally has 2 bowel movements a day. Did have a softer bowel movement earlier today. In the ER patient found to be in atrial fibrillation rapid ventricular rate. Started IV heparin IV Cardizem. Denies any chest pain and palpitation or shortness of breath. Admitted with A. fib with rapid ventricular rate and possible enteritis, felt to be vital. A. fib converted to sinus rhythm. Enteritis was managed conservatively. Improved. Today-remains in sinus rhythm. No abdominal pain. Tolerating diet. Up and about. Cleared by surgery and cardiology to be discharged. Did not qualify for anticoagulation based on his Luis score Consultation: Dr. Hoffman from surgery Dr. AURELIO Woodson from cardiology Past medical history to include: Diverticulitis, gallbladder calculus, kidney stones, gout, anemia Social history: Lives alone. 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 No history of alcohol or smoking. Family history: Reviewed, noncontributory to presentation Physical examination: VITAL SIGNS: 99.7, 68, 18, 125/72, 96% room air GENERAL: Sitting up, comfortable EYES: Pupils equal. Conjunctiva normal. HEENT: External appearance of nose and ears normal, oral cavity grossly normal. NECK: JVD not raised; masses not palpable. HEART: First seconds are normal; no edema. LUNGS: Respiratory rate normal; clear to auscultation. ABDOMEN: Soft, no tenderness, no guarding rigidity, liver spleen not palpable, no masses palpable. PSYCH: Alert and oriented x3; mood and affect normal. INVESTIGATIONS, reviewed in the clinical context: April 30: White count 5.2 hemoglobin 12.5 May 06: White count 12.2 hemoglobin 14.3 potassium 4.1 creatinine 1.28 2-D echocardiogram-moderate concentric LVH. EF 55-60% Repeat computed tomography scan of the abdomen pelvis [May 06]: Liver shows low attenuation likely hepatic steatosis. Gallbladder-luminal stones. Prostate enlarged. Colonic wall thickening is suspected. Small bowel loops also shows some possible wall thickening. Diabetic leg change in the sigmoid colon. Increased attenuation within the mesenteric fat White count 9 hemoglobin 14.9 platelets 181 potassium 4.3 creatinine 1.47 Troponin I less than 0.012 EKG tracing personally reviewed by me-atrial fibrillation rate of 132 Computed tomography scan abdomen and pelvis with contrast-mildly dilated loops of small bowel within the left upper quadrant change the level measuring up to 3 cm. This was thickening of the small bowel mesentery edema noted. Assessment: -Paroxysmal atrial fibrillation with rapid ventricular rate-noted converted to sinus rhythm. No endocrine admission because of low Luis score. -Acute enteritis and colitis likely [id number] -Colonic diverticulosis -Chronic gout -Colonic diverticulosis -Gallstones incidental pneumatic -Hepatic steatosis -Hypertensive heart disease -Possible acute kidney injury-prerenal from fluid deficit. Disposition: Home Labs: CBC BMP-[address] olguin Plan - Discharge Summary Discharge Rx Participant: No New Discharge Prescriptions: New Metoprolol Tartrate [Lopressor] 12.5 mg PO BID #30 tab Continue Allopurinol [Zyloprim] 200 mg PO DAILY No Action Lutein 25mg 25 mg PO DAILY Cyanocobalamin [Vitamin B-12] 500 mcg PO DAILY Cholecalciferol [Vitamin D3 (25 Mcg = 1000 Iu)] 50 mcg PO DAILY Zeaxanthin 5mg 5 mg PO DAILY Discharge Medication List Allopurinol [Zyloprim] 200 mg PO DAILY 05/05/20 [History] Cholecalciferol [Vitamin D3 (25 Mcg = 1000 Iu)] 50 mcg PO DAILY 05/05/20 [History] Cyanocobalamin [Vitamin B-12] 500 mcg PO DAILY 05/05/20 [History] Lutein 25mg 25 mg PO DAILY 05/05/20 [History] Zeaxanthin 5mg 5 mg PO DAILY 05/05/20 [History] Metoprolol Tartrate [Lopressor] 12.5 mg PO BID #30 tab 05/08/20 [Rx] Follow up Appointment(s)/Referral(s): Oanh Woodson MD [STAFF PHYSICIAN] - 6 Weeks (Office to call with appointment time.) Yovani Olguin MD [Primary Care Provider] - 05/12/20 1:20 pm Robb Nelson MD [STAFF PHYSICIAN] - 05/26/20 4:00 pm Sharif Hoffman MD [STAFF PHYSICIAN] - 05/15/20 4:15 pm Patient Instructions/Handouts: A-fib (Atrial Fibrillation) (DC) Discharge Disposition: HOME SELF-CARE
== END 2020-05-08 15:25 | disposition home or self-care (01) | DRG 310 ==
LOC: EC 08:55 → 3SCARD 12:48
PROVIDERS: ADMIT Hospitalist; ATTEND Hospitalist
DX: I48.0 Paroxysmal atrial fibrillation (principal); K76.0 Fatty (change of) liver, not elsewhere classified; K57.30 Diverticulosis of large intestine without perforation or abscess without bleeding; K80.20 Calculus of gallbladder without cholecystitis without obstruction; M1A.9XX0 Chronic gout, unspecified, without tophus (tophi); I13.10 Hypertensive heart and chronic kidney disease without heart failure, with stage 1 through stage 4 chronic kidney disease, or unspecified chronic kidney disease; N18.9 Chronic kidney disease, unspecified; N20.0 Calculus of kidney; N28.1 Cyst of kidney, acquired; A08.4 Viral intestinal infection, unspecified; Z87.442 Personal history of urinary calculi; Z79.899 Other long term (current) drug therapy; Z88.0 Allergy status to penicillin; Z88.2 Allergy status to sulfonamides; Z88.7 Allergy status to serum and vaccine
CPT/HCPCS: 36415; 74018; 74176; 74177; 76770; 80048; 80053; 82150; 82550; 83605; 83690; 84439; 84443; 84484; 85025; 85730; 93005; 93270; 93306; 96361; 96365; 96366; 96368; 96375; 96376; 99291

== ENCOUNTER 2020-10-06 10:04 | Observation (INO) | payer MEDICARE ==
--- NOTE | 2020-10-06 10:47 | ED ---
General Adult HPI - General Chief complaint: Recheck/Abnormal Lab/Rx Stated complaint: Dr Sent pt/Kidney Issues Time Seen by Provider: 10/06/20 10:18 Source: patient, RN notes reviewed Mode of arrival: ambulatory Limitations: no limitations - History of Present Illness Initial comments: Patient is a pleasant 75-year-old male presenting to the emergency Department with abnormal blood work. Patient states he feels fine and has no complaints. Patient had blood work done 5 days ago and was called today by his doctor advise any come the emergency department. There was reported abnormality with his kidney function. No history of similar symptoms previously. Patient has been eating and drinking fine. No vomiting. No change with urination. - Related Data Home Medications Medication Instructions Recorded Confirmed Allopurinol [Zyloprim] 200 mg PO DAILY 05/05/20 10/06/20 Multivitamins, Thera [Multivitamin 1 tab PO DAILY 10/06/20 10/06/20 (formulary)] Previous Rx's Medication Instructions Recorded Metoprolol Tartrate [Lopressor] 12.5 mg PO BID #30 tab 05/08/20 Allergies Allergy/AdvReac Type Severity Reaction Status Date / Time Penicillins Allergy Rash/Hives Verified 10/06/20 11:09 Sulfa (Sulfonamide Allergy Rash/Hives Verified 10/06/20 11:09 Antibiotics) Tetanus Vaccines and Toxoid Allergy Rash/Hives Verified 10/06/20 11:09 [Tetanus Vaccines & Toxoid] Review of Systems ROS Statement: Those systems with pertinent positive or pertinent negative responses have been documented in the HPI. ROS Other: All systems not noted in ROS Statement are negative. Constitutional: Denies: fever Eyes: Denies: eye pain ENT: Denies: ear pain Respiratory: Denies: cough Cardiovascular: Denies: chest pain Endocrine: Denies: fatigue Gastrointestinal: Denies: abdominal pain, nausea, vomiting, diarrhea Genitourinary: Denies: dysuria Musculoskeletal: Denies: back pain Skin: Denies: rash Neurological: Denies: weakness Past Medical History Past Medical History: No Reported History, Renal Disease Additional Past Medical History / Comment(s): Diverticulitis of intestine, calculus of GB, calculus of kidney, gout bilateral feet and toes. anemia History of Any Multi-Drug Resistant Organisms: None Reported Past Surgical History: No Surgical Hx Reported Additional Past Anesthesia/Blood Transfusion Reaction / Comment(s): Pt states he has never had surgery or blood transfusion. Past Psychological History: No Psychological Hx Reported Smoking Status: Never smoker Past Alcohol Use History: None Reported Past Drug Use History: None Reported - Past Family History Father Family Medical History: No Reported History Additional Family Medical History / Comment(s): Father lived until he was 93 yrs old. Mother Additional Family Medical History / Comment(s): Mother had Mediterarean anemia. General Exam Limitations: no limitations General appearance: alert, in no apparent distress Head exam: Present: normocephalic Eye exam: Present: normal appearance Neck exam: Present: normal inspection Respiratory exam: Present: normal lung sounds bilaterally Cardiovascular Exam: Present: regular rate, normal rhythm GI/Abdominal exam: Present: soft. Absent: distended, tenderness, guarding, rebound, rigid Extremities exam: Present: normal inspection. Absent: pedal edema, calf tenderness Back exam: Present: normal inspection. Absent: CVA tenderness (R), CVA tenderness (L) Neurological exam: Present: alert Psychiatric exam: Present: normal affect, normal mood Skin exam: Present: normal color Course Vital Signs 10/06/20 10/06/20 10:18 12:42 Temperature 98.8 F 97.9 F Pulse Rate 70 53 L Respiratory 16 17 Rate Blood Pressure 129/78 130/75 O2 Sat by Pulse 99 100 Oximetry EKG Findings - EKG Comments: EKG Findings:: Sinus bradycardia with rate of 55. LA 156. QRS 94. QT 404. QTC 36. Normal axis. Normal QRS. No acute ST change. Medical Decision Making - Medical Decision Making Patient reevaluated and updated. Case was discussed with Dr. Benton, covering Dr. olguin, who will admit. - Lab Data Result diagrams: 10/06/20 11:04 10/06/20 11:04 Lab Results 10/06/20 10/06/20 10/06/20 Range/Units 11:04 11:04 11:04 WBC 6.2 (3.8-10.6) k/uL RBC 3.43 L (4.30-5.90) m/uL Hgb 10.3 L (13.0-17.5) gm/dL Hct 31.4 L (39.0-53.0) % MCV 91.7 (80.0-100.0) fL MCH 30.2 (25.0-35.0) pg MCHC 32.9 (31.0-37.0) g/dL RDW 15.4 (11.5-15.5) % Plt Count 219 (150-450) k/uL MPV 7.4 Neutrophils % 69 % Lymphocytes % 18 % Monocytes % 6 % Eosinophils % 4 % Basophils % 0 % Neutrophils # 4.3 (1.3-7.7) k/uL Lymphocytes # 1.1 (1.0-4.8) k/uL Monocytes # 0.4 (0-1.0) k/uL Eosinophils # 0.3 (0-0.7) k/uL Basophils # 0.0 (0-0.2) k/uL PT 10.8 (9.0-12.0) sec INR 1.0 (<1.2) APTT 23.5 (22.0-30.0) sec Sodium (137-145) mmol/L Potassium (3.5-5.1) mmol/L Chloride (98-107) mmol/L Carbon Dioxide (22-30) mmol/L Anion Gap mmol/L BUN (9-20) mg/dL Creatinine (0.66-1.25) mg/dL Est GFR (CKD-EPI)AfAm (>60 ml/min/1.73 sqM) Est GFR (CKD-EPI)NonAf (>60 ml/min/1.73 sqM) Glucose (74-99) mg/dL Plasma Lactic Acid [place] (0.7-2.0) mmol/L Calcium (8.4-10.2) mg/dL Phosphorus (2.5-4.5) mg/dL Magnesium (1.6-2.3) mg/dL Total Bilirubin (0.2-1.3) mg/dL AST (17-59) U/L ALT (4-49) U/L Alkaline Phosphatase (38-126) U/L Total Protein (6.3-8.2) g/dL Albumin (3.5-5.0) g/dL Urine Color Yellow Urine Appearance Clear (Clear) Urine pH 5.5 (5.0-8.0) Ur Specific [place] 1.014 (1.001-1.035) Urine Protein 1+ H (Negative) Urine Glucose (UA) Negative (Negative) Urine Ketones Negative (Negative) Urine Blood Moderate H (Negative) Urine Nitrite Negative (Negative) Urine Bilirubin Negative (Negative) Urine Urobilinogen <2.0 (<2.0) mg/dL Ur Leukocyte Esterase Negative (Negative) Urine RBC 26 H (0-5) /hpf Urine WBC 5 (0-5) /hpf Urine Bacteria Occasional H (None) /hpf Urine Mucus Rare H (None) /hpf Coronavirus (PCR) (Not Detectd) 10/06/20 10/06/20 10/06/20 Range/Units 11:04 11:04 12:38 WBC (3.8-10.6) k/uL RBC (4.30-5.90) m/uL Hgb (13.0-17.5) gm/dL Hct (39.0-53.0) % MCV (80.0-100.0) fL MCH (25.0-35.0) pg MCHC (31.0-37.0) g/dL RDW (11.5-15.5) % Plt Count (150-450) k/uL MPV Neutrophils % % Lymphocytes % % Monocytes % % Eosinophils % % Basophils % % Neutrophils # (1.3-7.7) k/uL Lymphocytes # (1.0-4.8) k/uL Monocytes # (0-1.0) k/uL Eosinophils # (0-0.7) k/uL Basophils # (0-0.2) k/uL PT (9.0-12.0) sec INR (<1.2) APTT (22.0-30.0) sec Sodium 138 (137-145) mmol/L Potassium 5.1 (3.5-5.1) mmol/L Chloride 107 (98-107) mmol/L Carbon Dioxide 23 (22-30) mmol/L Anion Gap 8 mmol/L BUN 37 H (9-20) mg/dL Creatinine 3.12 H (0.66-1.25) mg/dL Est GFR (CKD-EPI)AfAm 22 (>60 ml/min/1.73 sqM) Est GFR (CKD-EPI)NonAf 19 (>60 ml/min/1.73 sqM) Glucose 115 H (74-99) mg/dL Plasma Lactic Acid [place] 1.3 (0.7-2.0) mmol/L Calcium 9.2 (8.4-10.2) mg/dL Phosphorus 4.2 (2.5-4.5) mg/dL Magnesium 2.4 H (1.6-2.3) mg/dL Total Bilirubin 0.4 (0.2-1.3) mg/dL AST 16 L (17-59) U/L ALT 6 (4-49) U/L Alkaline Phosphatase 99 (38-126) U/L Total Protein 6.6 (6.3-8.2) g/dL Albumin 3.8 (3.5-5.0) g/dL Urine Color Urine Appearance (Clear) Urine pH (5.0-8.0) Ur Specific [place] (1.001-1.035) Urine Protein (Negative) Urine Glucose (UA) (Negative) Urine Ketones (Negative) Urine Blood (Negative) Urine Nitrite (Negative) Urine Bilirubin (Negative) Urine Urobilinogen (<2.0) mg/dL Ur Leukocyte Esterase (Negative) Urine RBC (0-5) /hpf Urine WBC (0-5) /hpf Urine Bacteria (None) /hpf Urine Mucus (None) /hpf Coronavirus (PCR) Not Detected (Not Detectd) Disposition Clinical Impression: ARF (acute renal failure) Disposition: ADMITTED IP TO THIS HOSP Is patient prescribed a controlled substance at d/c from ED?: No Referrals: Yovani Olguin MD [Primary Care Provider] - 1-2 days Decision Time: 13:10
[2020-10-06 11:19] LABS: Basophils % (A) 0 %; Eosinophils # (A) 0.3 k/uL (0-0.7); Eosinophils % (A) 4 %; HCT 31.4 % (39.0-53.0); HGB 10.3 gm/dL (13.0-17.5); Lymphocytes # (A) 1.1 k/uL (1.0-4.8); Lymphocytes % (A) 18 %; MCH 30.2 pg (25.0-35.0); MCHC 32.9 g/dL (31.0-37.0); MCV 91.7 fL (80.0-100.0); Mean Platelet Volume 7.4; Monocytes # (A) 0.4 k/uL (0-1.0); Monocytes % (A) 6 %; Neutrophils # (A) 4.3 k/uL (1.3-7.7); Neutrophils % (A) 69 %; Platelet Count 219 k/uL (150-450); RBC 3.43 m/uL (4.30-5.90); RDW 15.4 % (11.5-15.5); WBC 6.2 k/uL (3.8-10.6)
[2020-10-06 11:33] LABS: Albumin 3.8 g/dL (3.5-5.0); Calcium 9.2 mg/dL (8.4-10.2); Magnesium 2.4 mg/dL (1.6-2.3); Phosphorus 4.2 mg/dL (2.5-4.5); Potassium 5.1 mmol/L (3.5-5.1); Total Bilirubin 0.4 mg/dL (0.2-1.3); Total Protein 6.6 g/dL (6.3-8.2)
[2020-10-06 11:37] LABS: Appearance,Urine Clear (Clear); Bacteria,Urine Occasional /hpf; Bilirubin,Urine Negative (Negative); Blood,Urine Moderate (Negative); Color,Urine Yellow; Glucose,Urine (UA) Negative (Negative); Ketones,Urine Negative (Negative); Leukocyte Esterase,Urine Negative (Negative); Mucus,Urine Rare /hpf; Nitrite,Urine Negative (Negative); PH, Urine 5.5 (5.0-8.0); Protein,Urine 1+ (Negative); RBC,Urine 26 /hpf (0-5); Specific Gravity,Urine 1.014 (1.001-1.035); Urobilinogen,Urine <2.0 mg/dL (<2.0); WBC,Urine 5 /hpf (0-5)
[2020-10-06 11:43] LABS: Partial Thromboplastin Time 23.5 sec (22.0-30.0); Prothrombin Time 10.8 sec (9.0-12.0)
[2020-10-06] MEDS ORDERED: NALOXONE 0.4 MG/ML 1 ML VIAL IV PRN (13:11)
[2020-10-06] MEDS: SODIUM CHLORIDE 0.9% 1,000 ML IV SCH (13:21)
--- NOTE | 2020-10-06 14:46 | CT ---
EXAMINATION TYPE: CT abdomen pelvis wo con DATE OF EXAM: 10/06/2020 COMPARISON: 05/06/2020 HISTORY: 75-year-old male Renal failure CT DLP: 610.6 mGycm. Automated exposure control for dose reduction was used. TECHNIQUE: Contiguous axial scanning of the abdomen and pelvis without IV contrast. Coronal and sagit reagan reconstructions performed. FINDINGS: Heart normal size without pericardial effusion. Lung bases clear without pleural effusion. Noncontrast appearance of the liver, kidneys, spleen, and pancreas show no gross abnormality. Numerous gallstones packing the nondistended gallbladder. No dilated small bowel, free fluid, or free air. No mesenteric or retroperitoneal lymphadenopathy. Normal appendix. Mild scattered stool. Generalized colonic diverticulosis. No pericolonic inflammator y change. Mild prostatic calcifications infrarenal abdominal aorta with borderline fusiform ectasia of 2.5 cm. Mild circumferential bladder wall thickening. Prostatomegaly at 7.0 cm wide. Small fat-containing lef t inguinal hernia. No abnormal fluid collection pelvis or pelvic lymphadenopathy. Bones: Mild degenerative change of the hips and SI joints. Baastrup's disease. Advanced hypertrophic facet arthropathy lower lumbar spine with grade 1 anterolisthesis L5-S1. IMPRESSION: 1. Prostatomegaly at 7.0 cm wide. Correlate for potential symptoms of BPH and to exclude underlying prostate cancer with PSA values. 2. Mild circumferential bladder wall thickening suggests chronic bladder hypertrophy or cystitis. 3. No hydronephrosis. 4. Cholelithiasis and mild generalized colonic diverticulosis.
[2020-10-06] MEDS ORDERED: ALPRAZolam 0.25 MG TAB PO PRN (18:15)
[2020-10-06] MEDS ORDERED: HYDROcodone/APAP 5-325MG 1 EACH TAB PO PRN (18:15)
[2020-10-06] MEDS ORDERED: TEMAZEPAM 15 MG CAP PO PRN (18:15)
--- NOTE | 2020-10-06 20:38 | HP ---
HISTORY AND PHYSICAL CHIEF COMPLAINT: Renal failure. HISTORY OF PRESENT ILLNESS: This 75-year-old gentleman with a past medical history of multiple medical problems including renal disease, history of diverticulosis, history of calculus of the gallbladder, being followed Dr. Olguin in the outpatient setting, was evaluated in the office of Dr. Olguin. The patient complains of weakness and the blood glucose found to be abnormal. The patient was sent to [facility] for further evaluation and treatment. Creatinine was found to be 3.12. The patient also has some hematuria. Covid 19 was negative. The previous creatinine available was 1.2 indicating possibly chronic kidney stage 3 as baseline. The patient also had abdominal pelvis CAT scan in the ER which showed prostatomegaly about a 7 cm wide and mild circumferential bladder thickening suggestive of chronic bladder hypertrophy cystitis and also cholelithiasis also noted. There is no history of fever, rigors. No headache, loss of consciousness or seizures. PAST MEDICAL HISTORY: Renal disease, diverticular disease , calculus of gallbladder, history of calculus kidney. MEDICATIONS: Multivitamins, metoprolol. Doses are reviewed. ALLERGIES: Penicillin, sulfa, tetanus. FAMILY HISTORY: No history of heart disease or strokes in the family. SOCIAL HISTORY: No history of smoking. No alcohol. REVIEW OF SYSTEMS: ENT: Diminished vision and diminished hearing. CARDIOVASCULAR SYSTEM: No angina. RESPIRATORY: Breath sounds diminished. No cough. GI: As mentioned earlier. : As mentioned earlier. NERVOUS SYSTEM: No numbness or weakness. ALLERGY: No asthma or hayfever. MUSCULOSKELETAL: As mentioned earlier. DERMATOLOGY: As mentioned. ENDOCRINE: No history of diabetes or hypothyroid. CONSTITUTIONAL: As mentioned earlier. PSYCH: As mentioned earlier. PHYSICAL EXAMINATION: Alert, oriented x3. Pulse 53, blood pressure is 130/75, respiration 18, temperature 97.4, pulse ox 100 percent room air. HEENT: Conjunctivae normal. NECK: No JVD. LUNGS: Breath sounds diminished at the bases. No rhonchi no crackles. ABDOMEN: Soft, nontender. No mass palpable. LEGS: No edema, no swelling. NERVOUS SYSTEM: As mentioned earlier. Moves all 4 limbs. No focal motor or sensory deficit. LYMPHATICS: No lymph nodes palpable in the neck, groin or axillae. SKIN: No rashes. JOINTS: No active deforming arthropathy. LAB STUDIES: WBC 6.3, hemoglobin 10.3. Creatinine is 3.12. ASSESSMENT: 1. Acute on chronic renal failure with acute tubular necrosis and renal failure. 2. Chronic kidney stage 3 baseline. 3. Increased random glucose. 4. Hematuria. 5. Possible BPH. 6. Asymptomatic cholelithiasis. 7. Prostatomegaly on the CT scan. Mild circumferential bladder wall thickening on the CT scan. 8. History of diverticulosis at this time. 9. History of renal calculus. 10.History of gout. 11.History of anemia. 12.FULL CODE. RECOMMENDATIONS: In this 75-year-old gentleman who presented with multiple complex medical issues, we will monitor the patient closely continue the current management and symptomatic treatment. Otherwise at this time I recommend IV fluids, monitor creatinine closely. Nephrology evaluation. I would also recommend Urology evaluation also. Guarded prognosis because of multiple complex medical issues. MMODL / IJN: [id number] /
[2020-10-06] MEDS: METOPROLOL TARTRATE 12.5 MG TAB PO SCH (22:18)
[2020-10-07] MEDS: SODIUM CHLORIDE 0.9% 1,000 ML IV SCH (07:18)
[2020-10-07] MEDS ORDERED: PANTOPRAZOLE 40 MG TABLET PO SCH (07:30)
[2020-10-07] MEDS: METOPROLOL TARTRATE 12.5 MG TAB PO SCH (08:58)
[2020-10-07] MEDS ORDERED: MULTIVITAMINS, THERA 1 EACH TAB PO SCH (09:00)
[2020-10-07] MEDS ORDERED: allopurinoL 100 MG TAB PO SCH (09:00)
[2020-10-07 09:31] LABS: Basophils # (A) 0.02 X 10*3/uL (0.00-0.10); Basophils % (A) 0.3 %; Eosinophils # (A) 0.24 X 10*3/uL (0.04-0.35); HCT 31.2 % (39.6-50.0); HGB 9.6 g/dL (13.0-17.0); Lymphocytes # (A) 1.04 X 10*3/uL (0.90-5.00); Lymphocytes % (A) 17.3 %; MCHC 30.8 g/dL (32.0-37.0); MCV 94.3 fL (80.0-97.0); Mean Platelet Volume 11.2 fL (9.5-12.2); Monocytes # (A) 0.54 X 10*3/uL (0.20-1.00); Neutrophils # (A) 4.15 X 10*3/uL (1.80-7.70); Neutrophils % (A) 69.1 %; Platelet Count 222 X 10*3/uL (140-440); RBC 3.31 X 10*6/uL (4.40-5.60); RDW 15.5 % (11.5-14.5); WBC 6.01 X 10*3/uL (4.50-10.00)
--- NOTE | 2020-10-07 10:42 | CONS ---
CONSULTATION REASON FOR CONSULT: Renal failure. HISTORY OF PRESENT ILLNESS: Patient is a 75-year-old male with history of chronic kidney disease NKF stage 3 with baseline creatinine of around 1.2 mg/dL as of 05/06/2020. Patient follows as outpatient on a regular basis. He was admitted to the hospital with worsening renal function as outpatient. The patient has had increased weakness and was found to have a creatinine of 3.1 mg/dL. The patient denies any symptoms of nausea, vomiting, abdominal pain or diarrhea, although he did admit to decreased oral intake. He denies any significant urinary symptoms. The patient is maintained on IV fluids. Repeat labs are pending from today. PAST MEDICAL HISTORY: Significant for CKD stage 3, history of calculus of the gallbladder, history of gout. PAST SURGICAL HISTORY: None. SOCIAL HISTORY: Negative for smoking, drug abuse or alcohol abuse. MEDICATIONS: Medications at home prior to admission include allopurinol, multivitamins, Lopressor. ALLERGIES: INCLUDE PENICILLIN, SULFA, TETANUS TOXOID. REVIEW OF SYSTEMS: As per HPI. Other systems negative. EXAMINATION: Comfortable, awake, alert, oriented x3, not in any acute distress. Blood pressure 113/69, heart rate 51 per minute. Patient is afebrile. Examination of the heart S1, S2. Examination of the lungs, bilateral breath sounds are heard. Abdomen is soft, nontender. Examination of lower extremities shows no evidence of edema. [employer] exam grossly intact. LAB: Show hemoglobin 9.6 g/dL today and on 10/06/2020 sodium 138, potassium 5.1, BUN 37, creatinine 3.12. UA shows 1+ protein, moderate blood, WBCs 5. Abdominal CT done yesterday shows enlarged prostate. No hydronephrosis. ASSESSMENT: 1. Acute kidney injury most likely prerenal. Continue with IV fluids. Check labs today. Check post-void bladder scan. Rule out urine retention. If renal function is improved today, patient could be discharged from nephrology standpoint. 2. Chronic kidney disease NKF stage III. Baseline creatinine about 1.2-1.3 mg/dL. Etiology nephrosclerosis. 3. Anemia, rule out iron deficiency. 4. History of gout. PLAN: Continue IV fluids. Repeat labs today and then again in a.m. if patient is not discharged. Check post-void bladder scan. Follow up as outpatient in the office for CKD. Thank you for this consultation. We will continue to follow the patient with you during his hospitalization. MMODL / IJN: [id number] /
--- NOTE | 2020-10-07 10:59 | P.GSCN ---
History of Present Illness Consult date: 10/06/20 History of present illness: 75 yo male sent to the er by his primary care because of ARF, cr 3.1 He was admitted for further evaluation. He was found to have microscopic hematuria and we were consulted. He had a ct scan that but it didnt show any urological abnormalities. There are no stones. He does have history of stones. He has not had any gross hematuria. Review of Systems All systems: negative - Constitutional Denies fever, Denies weight loss - EENT Eyes: denies blurred vision Ears, nose, mouth and throat: Denies dysphagia - Cardiovascular Denies chest pain, Denies shortness of breath - Respiratory Denies cough, Denies 7 - Gastrointestinal Reports as per HPI - Genitourinary Denies dysuria, Denies hematuria - Integumentary Denies rash, Denies unusual bruising - Neurological Denies headaches, Denies syncope - Hematologic/Lymphatic Denies easy bleeding, Denies easy bruising Past Medical History Past Medical History: No Reported History, Renal Disease Additional Past Medical History / Comment(s): Diverticulitis of intestine, calculus of GB, calculus of kidney, gout bilateral feet and toes. anemia History of Any Multi-Drug Resistant Organisms: None Reported Past Surgical History: No Surgical Hx Reported Additional Past Anesthesia/Blood Transfusion Reaction / Comm: Pt states he has never had surgery or blood transfusion. Past Psychological History: No Psychological Hx Reported Additional Psychological History / Comment(s): Pt lives alone. He is independent. He drives a car. He uses no assistive device or any home care. Smoking Status: Never smoker Past Alcohol Use History: None Reported Additional Past Alcohol Use History / Comment(s): Pt states he has never smoked. Past Drug Use History: None Reported - Past Family History Father Family Medical History: No Reported History Additional Family Medical History / Comment(s): Father lived until he was 93 yrs old. Mother Additional Family Medical History / Comment(s): Mother had Mediterarean anemia. Medications and Allergies Home Medications Medication Instructions Recorded Confirmed Type Allopurinol [Zyloprim] 200 mg PO DAILY 05/05/20 10/06/20 History Metoprolol Tartrate [Lopressor] 12.5 mg PO BID #30 tab 05/08/20 10/06/20 Rx Multivitamins, Thera [Multivitamin 1 tab PO DAILY 10/06/20 10/06/20 History (formulary)] Allergies Allergy/AdvReac Type Severity Reaction Status Date / Time Penicillins Allergy Rash/Hives Verified 10/06/20 11:09 Sulfa (Sulfonamide Allergy Rash/Hives Verified 10/06/20 11:09 Antibiotics) Tetanus Vaccines and Toxoid Allergy Rash/Hives Verified 10/06/20 11:09 [Tetanus Vaccines & Toxoid] Surgical - Exam Vital Signs Temp Pulse Resp BP Pulse Ox 98.8 F 70 16 129/78 99 10/06/20 10:18 10/06/20 10:18 10/06/20 10:18 10/06/20 10:18 10/06/20 10:18 - General well developed, well nourished, no distress - Eyes PERRL - ENT no hearing loss - Neck no masses, trachea midline - Respiratory normal expansion, normal respiratory effort - Cardiovascular Rhythm: regular - Abdomen Abdomen: soft, non tender - Genitourinary normal penis with no external lesions, testicles present - Integumentary no rash, no growths - Neurologic normal coordination, normal sensation - Musculoskeletal normal posture - Psychiatric oriented to time, oriented to person, oriented to place, speech is normal, memory intact Results - Labs 10/07/20 06:08 10/06/20 11:04 Abnormal Lab Results - Last 24 Hours (Table) 10/06/20 10/06/20 10/06/20 Range/Units 11:04 11:04 11:04 RBC 3.43 L (4.30-5.90) m/uL Hgb 10.3 L (13.0-17.5) gm/dL Hct 31.4 L (39.0-53.0) % BUN 37 H (9-20) mg/dL Creatinine 3.12 H (0.66-1.25) mg/dL Glucose 115 H (74-99) mg/dL Magnesium 2.4 H (1.6-2.3) mg/dL AST 16 L (17-59) U/L Urine Protein 1+ H (Negative) Urine Blood Moderate H (Negative) Urine RBC 26 H (0-5) /hpf Urine Bacteria Occasional H (None) /hpf Urine Mucus Rare H (None) /hpf Diabetes panel 10/06/20 Range/Units 11:04 Sodium 138 (137-145) mmol/L Potassium 5.1 (3.5-5.1) mmol/L Chloride 107 (98-107) mmol/L Carbon Dioxide 23 (22-30) mmol/L BUN 37 H (9-20) mg/dL Creatinine 3.12 H (0.66-1.25) mg/dL Glucose 115 H (74-99) mg/dL Calcium 9.2 (8.4-10.2) mg/dL AST 16 L (17-59) U/L ALT 6 (4-49) U/L Alkaline Phosphatase 99 (38-126) U/L Total Protein 6.6 (6.3-8.2) g/dL Albumin 3.8 (3.5-5.0) g/dL Calcium panel 10/06/20 Range/Units 11:04 Calcium 9.2 (8.4-10.2) mg/dL Phosphorus 4.2 (2.5-4.5) mg/dL Albumin 3.8 (3.5-5.0) g/dL Pituitary panel 10/06/20 Range/Units 11:04 Sodium 138 (137-145) mmol/L Potassium 5.1 (3.5-5.1) mmol/L Chloride 107 (98-107) mmol/L Carbon Dioxide 23 (22-30) mmol/L BUN 37 H (9-20) mg/dL Creatinine 3.12 H (0.66-1.25) mg/dL Glucose 115 H (74-99) mg/dL Calcium 9.2 (8.4-10.2) mg/dL Adrenal panel 10/06/20 Range/Units 11:04 Sodium 138 (137-145) mmol/L Potassium 5.1 (3.5-5.1) mmol/L Chloride 107 (98-107) mmol/L Carbon Dioxide 23 (22-30) mmol/L BUN 37 H (9-20) mg/dL Creatinine 3.12 H (0.66-1.25) mg/dL Glucose 115 H (74-99) mg/dL Calcium 9.2 (8.4-10.2) mg/dL Total Bilirubin 0.4 (0.2-1.3) mg/dL AST 16 L (17-59) U/L ALT 6 (4-49) U/L Alkaline Phosphatase 99 (38-126) U/L Total Protein 6.6 (6.3-8.2) g/dL Albumin 3.8 (3.5-5.0) g/dL - Imaging CT scan - abdomen: report reviewed, image reviewed CT scan - pelvis: report reviewed, image reviewed Assessment and Plan Assessment: Impression: Microscopic hematuria of indeterminate etiology. Acute renal failure indeterminate etiology. Normal renal ultrasound Recommendations: From a urologic standpoint the patient need cystoscopy which can be done in the out patient setting. I will make an appointment to see him in the next week or 2. Is been discussed with the patient.
--- NOTE | 2020-10-07 13:20 | US ---
EXAMINATION TYPE: US kidneys/renal and bladder DATE OF EXAM: 10/07/2020 COMPARISON: NONE CLINICAL HISTORY: ARF. EXAM MEASUREMENTS: Right Kidney: 9.8 x 4.5 x 4.9cm Left Kidney: 8.8 x 4.0 x 4.7cm Right Kidney: No hydronephrosis or masses seen Left Kidney: measures small Bladder: wnl as seen, not fully distended Bilateral Jets seen: Normal Post Void Residual: There is no evidence for hydronephrosis at this point in time. No nephrolithiasis is seen. No susan s are identified. The urinary bladder is anechoic. IMPRESSION: Limited study. The left kidney is slightly small in size.
[2020-10-07 14:09] LABS: African American GFR (CKD) 24.6 (60.0-200.0); BUN/Creat Ratio 12.14 Ratio (12.00-20.00); Calcium 8.7 mg/dL (8.7-10.3); Non-African American GFR(CKD) 21.3 (60.0-200.0)
[2020-10-07 14:15] VITALS: BP 122/62; PULSE 55; RESP 17; TEMP 97.8
--- NOTE | 2020-10-07 21:39 | P.DS ---
Providers Date of admission: 10/06/20 13:46 Attending physician: Aspen Benton Consults: 10/06/20 13:12 Consult Physician Urgent Consulting Provider: Heather Dennis Consult Reason/Comments: arf Do you want consulting provider notified?: Yes 10/06/20 18:14 Consult Physician Routine Consulting Provider: Maximus Ortiz Consult Reason/Comments: hematuria Do you want consulting provider notified?: Yes Primary care physician: Yovani [facility] Hospital Course: Patient is admitted for acute renal failure with creatinine going up to 3.5 baseline creatinine is to 1.2-1.3. Patient was evaluated by nephrology patient received IV fluids with improvement of creatinine to 2.8. It appears patient was subsequently cleared by nephrology to follow up as outpatient and patient was subsequently discharged. Patient appears to have BPH because of which the neurology evaluated the patient patient was cleared from their perspective as well. I PHYSICAL EXAMINATION: GENERAL: The patient is alert and oriented x3, not in any acute distress. Well developed, well nourished. HEENT: Pupils are round and equally reacting to light. EOMI. No scleral icterus. No conjunctival pallor. Normocephalic, atraumatic. No pharyngeal erythema. No thyromegaly. CARDIOVASCULAR: S1 and S2 present. No murmurs, rubs, or gallops. PULMONARY: Chest is clear to auscultation, no wheezing or crackles. ABDOMEN: Soft, nontender, nondistended, normoactive bowel sounds. No palpable organomegaly. MUSCULOSKELETAL: No joint swelling or deformity. EXTREMITIES: No cyanosis, clubbing, or pedal edema. NEUROLOGICAL: Gross neurological examination did not reveal any focal deficits. SKIN: No rashes. -Assessment and plan -Acute renal failure prerenal azotemia and mild improvement with IV fluid subsequently cleared by nephrology patient was discharged -Chronic kidney disease stage III with baseline creatinine of 1.2-1.3 secondary to hypertensive nephrosclerosis -BPH without any urinary retention patient will follow-up with urology as an outpatient -For rest of the medical problems and hospitalization course please refer to H&P from Dr. Benton from yesterday Plan - Discharge Summary Discharge Rx Participant: No New Discharge Prescriptions: Continue Allopurinol [Zyloprim] 200 mg PO DAILY Metoprolol Tartrate [Lopressor] 12.5 mg PO BID #30 tab Multivitamins, Thera [Multivitamin (formulary)] 1 tab PO DAILY Discharge Medication List Allopurinol [Zyloprim] 200 mg PO DAILY 05/05/20 [History] Metoprolol Tartrate [Lopressor] 12.5 mg PO BID #30 tab 05/08/20 [Rx] Multivitamins, Thera [Multivitamin (formulary)] 1 tab PO DAILY 10/06/20 [History] Follow up Appointment(s)/Referral(s): Heather Dennis MD [STAFF PHYSICIAN] - 10/29/20 10:00 am Yovani Olguin MD [Primary Care Provider] - 3 Days (Appointment scheduled for 10/16/20 at 11:20 am.) Miguel A Mcgraw MD [STAFF PHYSICIAN] - 2 Weeks (Cystoscopy office toy call pt with appointment ) Patient Instructions/Handouts: Acute Kidney Injury (DC), Chronic Kidney Disease Diet (DC), Low-Sodium Diet (DC) Discharge Disposition: HOME SELF-CARE
== END 2020-10-07 15:53 | disposition home or self-care (01) ==
LOC: EC 10:04 → 6NMEDSUR 13:46
PROVIDERS: ADMIT Hospitalist; ATTEND Hospitalist
DX: N17.0 Acute kidney failure with tubular necrosis (principal); I12.9 Hypertensive chronic kidney disease with stage 1 through stage 4 chronic kidney disease, or unspecified chronic kidney disease; N18.30 Chronic kidney disease, stage 3 unspecified; R31.29 Other microscopic hematuria; Z20.822 Contact with and (suspected) exposure to COVID-19; K80.20 Calculus of gallbladder without cholecystitis without obstruction; N40.0 Benign prostatic hyperplasia without lower urinary tract symptoms; K57.92 Diverticulitis of intestine, part unspecified, without perforation or abscess without bleeding; D64.9 Anemia, unspecified; M10.9 Gout, unspecified; Z88.2 Allergy status to sulfonamides; Z88.7 Allergy status to serum and vaccine; Z79.899 Other long term (current) drug therapy; Z87.442 Personal history of urinary calculi; Z83.2 Family history of diseases of the blood and blood-forming organs and certain disorders involving the immune mechanism
CPT/HCPCS: 96360; 96361; 99285; 36415; 93005; 80053; 80048; 83605; 83735; 84100; 85025 ×2; 85610; 85730; 81001; 87635; 76770; 74176; G0378 ×2

== ENCOUNTER 2020-10-19 11:49 | Observation (INO) | payer MEDICARE ==
--- NOTE | 2020-10-19 12:33 | ED ---
Recheck HPI - General Chief Complaint: Recheck/Abnormal Lab/Rx Stated Complaint: abn labs Time Seen by Provider: 10/19/20 12:15 Source: patient Mode of arrival: ambulatory Limitations: no limitations - History of Present Illness Initial Comments: Is a 75-year-old male with history of hypertension, CK 80, gout who presents emergent department at the advice from his primary doctor for abnormal renal function and hyperkalemia. The patient states that he had labs drawn 2 days ago through his primary doctor. Patient was called today and notified that his kidney function was abnormal in that his potassium was high and to come emergency department for evaluation. The patient states he otherwise has been feeling fine. He states that he's been drinking plenty of water and is in urinating 3 or 4 times a day. He states he's not had any lightheadedness or dizziness. No palpitations or chest pain. No nausea, vomiting, or diarrhea. The patient was recently admitted to the hospital for acute kidney injury that was suspected be from prerenal etiology and hypovolemia. The patient was seen by nephrology and advised to follow up outpatient. When he left his creatinine was 2.8. It sounds like his baseline is around 1.2-1.3. Patient is currently comfortable and states he is just anxious because his labwork was abnormal and the otherwise denies any other acute complaints at this time. - Related Data Home Medications Medication Instructions Recorded Confirmed Allopurinol [Zyloprim] 200 mg PO DAILY 05/05/20 10/06/20 Cholecalciferol [Vitamin D3 (25 50 mcg PO DAILY 10/19/20 10/19/20 Mcg = 1000 Iu)] Cyanocobalamin [Vitamin B-12] 500 mcg PO DAILY 10/19/20 10/19/20 Lutein 10 mg PO DAILY 10/19/20 10/19/20 Metoprolol Tartrate [Lopressor] 12.5 mg PO BID@0630,1830 10/19/20 10/19/20 Zeaxantain 5 mg PO DAILY 10/19/20 10/19/20 Allergies Allergy/AdvReac Type Severity Reaction Status Date / Time ciprofloxacin [From Cipro] Allergy Rash/Hives Verified 10/19/20 14:27 levofloxacin Allergy Rash/Hives Verified 10/19/20 14:27 Penicillins Allergy Rash/Hives Verified 10/19/20 14:27 Sulfa (Sulfonamide Allergy Rash/Hives Verified 10/19/20 14:27 Antibiotics) Tetanus Vaccines and Toxoid Allergy Rash/Hives Verified 10/19/20 14:27 [Tetanus Vaccines & Toxoid] Review of Systems ROS Statement: Those systems with pertinent positive or pertinent negative responses have been documented in the HPI. ROS Other: All systems not noted in ROS Statement are negative. Past Medical History Past Medical History: Renal Disease Additional Past Medical History / Comment(s): Diverticulitis of intestine, calculus of GB, calculus of kidney, gout bilateral feet and toes. anemia History of Any Multi-Drug Resistant Organisms: None Reported Past Surgical History: No Surgical Hx Reported Additional Past Anesthesia/Blood Transfusion Reaction / Comment(s): Pt states he has never had surgery or blood transfusion. Past Psychological History: No Psychological Hx Reported Smoking Status: Never smoker Past Alcohol Use History: None Reported Past Drug Use History: None Reported - Past Family History Father Family Medical History: No Reported History Additional Family Medical History / Comment(s): Father lived until he was 93 yrs old. Mother Additional Family Medical History / Comment(s): Mother had Mediterarean anemia. General Exam - General Exam Comments Initial Comments: Constitutional: Awake alert Appears comfortable Head: Normocephalic atraumatic Eyes: no conjunctival injection No scleral icterus EOMI Neck: No JVD Supple Heart: Regular rate rhythm normal S1-S2 no murmurs Lungs: Clear to auscultation bilaterally No wheezing No rales Abdomen: Soft nondistended nontender Extremities: Non edematous DP pulses intact Radial pulses intact Neuro: A&Ox3 No focal neurologic deficits Psych: Appropriate mood and affect Limitations: no limitations Course Vital Signs 10/19/20 10/19/20 10/19/20 11:57 12:01 14:14 Temperature 97.3 F L Pulse Rate 68 59 L 59 L Respiratory 20 16 17 Rate Blood Pressure 146/76 141/71 131/77 O2 Sat by Pulse 100 100 100 Oximetry - Reevaluation(s) Reevaluation #1: 10/19/20 12:32 EKG showing normal sinus rhythm with a rate of 66. No abnormal ST 7 changes or T-wave inversions. QTC is 421. Other than normal. No ectopy. No peaked T waves. Medical Decision Making - Medical Decision Making Is a 75-year-old male presents emergency department for abnormal labs. The patient had no physical complaints. Vital signs are stable on arrival. No foca l findings on examination. The patient was found to have a creatinine of 3.06 and a hyper kalemia of 5.3. There are no EKG changes. This was improved from outpatient labs 2 days ago. I did speak with Dr. levy the who requested the patient be admitted for further workup because of the recurrent hyperkalemia and also the sudden onset of the patient's changing kidney function. The patient saw Dr. Dennis last time he was here and Dr. Dennis will be admitted again. Dr. Jordan accepts the patient for admission. - Lab Data Result diagrams: 10/19/20 12:01 10/19/20 12:01 Lab Results 10/19/20 10/19/20 10/19/20 Range/Units 12:01 12:01 12:01 WBC 6.9 (3.8-10.6) k/uL RBC 3.31 L (4.30-5.90) m/uL Hgb 10.2 L (13.0-17.5) gm/dL Hct 31.0 L (39.0-53.0) % MCV 93.6 (80.0-100.0) fL MCH 30.7 (25.0-35.0) pg MCHC 32.8 (31.0-37.0) g/dL RDW 15.3 (11.5-15.5) % Plt Count 210 (150-450) k/uL MPV 8.0 Neutrophils % 70 % Lymphocytes % 18 % Monocytes % 5 % Eosinophils % 4 % Basophils % 0 % Neutrophils # 4.9 (1.3-7.7) k/uL Lymphocytes # 1.2 (1.0-4.8) k/uL Monocytes # 0.4 (0-1.0) k/uL Eosinophils # 0.3 (0-0.7) k/uL Basophils # 0.0 (0-0.2) k/uL Sodium 138 (137-145) mmol/L Potassium 5.3 H (3.5-5.1) mmol/L Chloride 108 H (98-107) mmol/L Carbon Dioxide 21 L (22-30) mmol/L Anion Gap 9 mmol/L BUN 44 H (9-20) mg/dL Creatinine 3.06 H (0.66-1.25) mg/dL Est GFR (CKD-EPI)AfAm 22 (>60 ml/min/1.73 sqM) Est GFR (CKD-EPI)NonAf 19 (>60 ml/min/1.73 sqM) Glucose 139 H (74-99) mg/dL Calcium 9.2 (8.4-10.2) mg/dL Magnesium 2.2 (1.6-2.3) mg/dL Total Bilirubin 0.4 (0.2-1.3) mg/dL AST 18 (17-59) U/L ALT 6 (4-49) U/L Alkaline Phosphatase 98 (38-126) U/L Total Protein 6.8 (6.3-8.2) g/dL Albumin 4.0 (3.5-5.0) g/dL Urine Color Light Yellow Urine Appearance Clear (Clear) Urine pH 5.5 (5.0-8.0) Ur Specific [place] 1.007 (1.001-1.035) Urine Protein 1+ H (Negative) Urine Glucose (UA) Negative (Negative) Urine Ketones Negative (Negative) Urine Blood Moderate H (Negative) Urine Nitrite Negative (Negative) Urine Bilirubin Negative (Negative) Urine Urobilinogen <2.0 (<2.0) mg/dL Ur Leukocyte Esterase Negative (Negative) Urine RBC 13 H (0-5) /hpf Urine WBC 2 (0-5) /hpf Urine Mucus Rare H (None) /hpf Disposition Clinical Impression: ROCKY (acute kidney injury), Hyperkalemia Disposition: ADMITTED IP TO THIS HOSP Condition: Stable Referrals: Yovani Olguin MD [Primary Care Provider] - 1-2 days
[2020-10-19 13:09] LABS: Basophils % (A) 0 %; Eosinophils # (A) 0.3 k/uL (0-0.7); Eosinophils % (A) 4 %; HGB 10.2 gm/dL (13.0-17.5); Lymphocytes # (A) 1.2 k/uL (1.0-4.8); Lymphocytes % (A) 18 %; MCH 30.7 pg (25.0-35.0); MCHC 32.8 g/dL (31.0-37.0); MCV 93.6 fL (80.0-100.0); Monocytes # (A) 0.4 k/uL (0-1.0); Monocytes % (A) 5 %; Neutrophils # (A) 4.9 k/uL (1.3-7.7); Neutrophils % (A) 70 %; Platelet Count 210 k/uL (150-450); RBC 3.31 m/uL (4.30-5.90); RDW 15.3 % (11.5-15.5); WBC 6.9 k/uL (3.8-10.6)
[2020-10-19 13:21] LABS: Calcium 9.2 mg/dL (8.4-10.2); Magnesium 2.2 mg/dL (1.6-2.3); Potassium 5.3 mmol/L (3.5-5.1); Total Bilirubin 0.4 mg/dL (0.2-1.3); Total Protein 6.8 g/dL (6.3-8.2)
[2020-10-19] MEDS ORDERED: NALOXONE 0.4 MG/ML 1 ML VIAL IV PRN (14:24)
[2020-10-19 14:30] LABS: Appearance,Urine Clear (Clear); Bilirubin,Urine Negative (Negative); Blood,Urine Moderate (Negative); Color,Urine Light Yellow; Glucose,Urine (UA) Negative (Negative); Ketones,Urine Negative (Negative); Leukocyte Esterase,Urine Negative (Negative); Mucus,Urine Rare /hpf; Nitrite,Urine Negative (Negative); PH, Urine 5.5 (5.0-8.0); Protein,Urine 1+ (Negative); RBC,Urine 13 /hpf (0-5); Specific Gravity,Urine 1.007 (1.001-1.035); Urobilinogen,Urine <2.0 mg/dL (<2.0); WBC,Urine 2 /hpf (0-5)
[2020-10-19] MEDS: SODIUM CHLORIDE 0.9% 1,000 ML IV SCH (14:43)
[2020-10-19] MEDS ORDERED: SODIUM POLYSTYRENE SULFONATE 15 GM/60 ML BOTTLE PO STA (20:11)
--- NOTE | 2020-10-19 20:14 | P.HPIM ---
History of Present Illness H&P Date: 10/19/20 Chief Complaint: Abnormal lab 75-year-old male with history of hypertension, CK 80, gout who presents emergent department at the advice from his primary doctor for abnormal renal function and hyperkalemia. The patient states that he had labs drawn 2 days ago through his primary doctor. Patient was called today and notified that his kidney function was abnormal in that his potassium was high and to come emergency department for evaluation. The patient states he otherwise has been feeling fine. He states that he's been drinking plenty of water and is in urinating 3 or 4 times a day. He states he's not had any lightheadedness or dizziness. No palpitations or chest pain. No nausea, vomiting, or diarrhea. The patient was recently admitted to the hospital for acute kidney injury that was suspected be from prerenal etiology and hypovolemia. The patient was seen by nephrology and advised to follow up outpatient. When he left his creatinine was 2.8. It sounds like his baseline is around 1.2-1.3. Patient is currently comfortable and states he is just anxious because his labwork was abnormal and the otherwise denies any other acute complaints at this time. Workup in ED-- EKG showing normal sinus rhythm with a rate of 66. No abnormal ST 7 changes or T-wave inversions. QTC is 421. Other than normal. No ectopy. No peaked T waves. Blood work reveals a WBC of 6.9, hemoglobin 10.2 hematocrit 31.0 and platelet count of 210, sodium 138, potassium 5.3, BUN 44 with creatinine of 3.06 Patient is admitted for evaluation of recurrent hyperkalemia and worsening renal function Review of Systems REVIEW OF SYSTEMS: CONSTITUTIONAL: No fever, no malaise, no fatigue. HEENT: No recent visual problems or hearing problems. Denied any sore throat. CARDIOVASCULAR: No chest pain, orthopnea, PND, no palpitations, no syncope. PULMONARY: No shortness of breath, no cough, no hemoptysis. GASTROINTESTINAL: No diarrhea, no nausea, no vomiting, no abdominal pain. NEUROLOGICAL: No headaches, no weakness, no numbness. HEMATOLOGICAL: Denies any bleeding or petechiae. GENITOURINARY: Denies any burning micturition, frequency, or urgency. MUSCULOSKELETAL/RHEUMATOLOGICAL: Denies any joint pain, swelling, or any muscle pain. ENDOCRINE: Denies any polyuria or polydipsia. The rest of the 14-point review of systems is negative. Past Medical History Past Medical History: Renal Disease Additional Past Medical History / Comment(s): Diverticulitis of intestine, calculus of GB, calculus of kidney, gout bilateral feet and toes. anemia History of Any Multi-Drug Resistant Organisms: None Reported Past Surgical History: No Surgical Hx Reported Additional Past Anesthesia/Blood Transfusion Reaction / Comment(s): Pt states he has never had surgery or blood transfusion. Past Psychological History: No Psychological Hx Reported Smoking Status: Never smoker Past Alcohol Use History: None Reported Past Drug Use History: None Reported - Past Family History Father Family Medical History: No Reported History Additional Family Medical History / Comment(s): Father lived until he was 93 yrs old. Mother Additional Family Medical History / Comment(s): Mother had Mediterarean anemia. Medications and Allergies Home Medications Medication Instructions Recorded Confirmed Type Allopurinol [Zyloprim] 200 mg PO DAILY 05/05/20 10/19/20 History Cholecalciferol [Vitamin D3 (25 50 mcg PO DAILY 10/19/20 10/19/20 History Mcg = 1000 Iu)] Cyanocobalamin [Vitamin B-12] 500 mcg PO DAILY 10/19/20 10/19/20 History Lutein 10 mg PO DAILY 10/19/20 10/19/20 History Metoprolol Tartrate [Lopressor] 12.5 mg PO BID@0630,1830 10/19/20 10/19/20 History Zeaxantain 5 mg PO DAILY 10/19/20 10/19/20 History Allergies Allergy/AdvReac Type Severity Reaction Status Date / Time ciprofloxacin [From Cipro] Allergy Rash/Hives Verified 10/19/20 14:27 levofloxacin Allergy Rash/Hives Verified 10/19/20 14:27 Penicillins Allergy Rash/Hives Verified 10/19/20 14:27 Sulfa (Sulfonamide Allergy Rash/Hives Verified 10/19/20 14:27 Antibiotics) Tetanus Vaccines and Toxoid Allergy Rash/Hives Verified 10/19/20 14:27 [Tetanus Vaccines & Toxoid] Physical Exam Vitals: Vital Signs Temp Pulse Resp BP Pulse Ox 10/19/20 14:14 59 L 17 131/77 100 10/19/20 12:01 59 L 16 141/71 100 10/19/20 11:57 97.3 F L 68 20 146/76 100 Intake and Output 10/19/20 10/19/20 10/19/20 06:59 14:59 22:59 Other: Weight 82.1 kg Constitutional: Awake alert Appears comfortable Head: Normocephalic atraumatic Eyes: no conjunctival injection No scleral icterus EOMI Neck: No JVD Supple Heart: Regular rate rhythm normal S1-S2 no murmurs Lungs: Clear to auscultation bilaterally No wheezing No rales Abdomen: Soft nondistended nontender Extremities: Non edematous DP pulses intact Radial pulses intact Neuro: A&Ox3 No focal neurologic deficits Psych: Appropriate mood and affect Results CBC & Chem 7: 10/19/20 12:01 10/19/20 12:01 Labs: Abnormal Lab Results - Last 24 Hours (Table) 10/19/20 10/19/20 10/19/20 Range/Units 12:01 12:01 12:01 RBC 3.31 L (4.30-5.90) m/uL Hgb 10.2 L (13.0-17.5) gm/dL Hct 31.0 L (39.0-53.0) % Potassium 5.3 H (3.5-5.1) mmol/L Chloride 108 H (98-107) mmol/L Carbon Dioxide 21 L (22-30) mmol/L BUN 44 H (9-20) mg/dL Creatinine 3.06 H (0.66-1.25) mg/dL Glucose 139 H (74-99) mg/dL Urine Protein 1+ H (Negative) Urine Blood Moderate H (Negative) Urine RBC 13 H (0-5) /hpf Urine Mucus Rare H (None) /hpf Assessment and Plan Assessment: 1. Hyperkalemia - We will monitor potassium levels; administer Kayexalate 30 g by mouth 1; we w ill repeat potassium level and further recommendations pending results 2. Acute renal failure; IV fluid hydration with normal saline at a rate of 100 mL an hour; we will monitor strict OSMAR's, daily weights, renal function and electrolytes; avoid nephrotoxic agents and hypotension 3. Anemia; possibly chronic due to declining renal function; we will order iron studies; monitor stool occult blood; monitor H&H 4. Hyperuricemia/gout; continue with home dose of allopurinol 100 mg daily 5. Hypertension; continue with home dose of metoprolol 12.5 mg twice a day 6. Vitamin D deficiency; continue with home dose of 50 MCG daily 7. Vitamin B12 deficiency; vitamin B12 500 MCG daily DVT prophylaxis; SCDs CODE STATUS; full code
[2020-10-19] MEDS: METOPROLOL TARTRATE 12.5 MG TAB PO SCH (21:18)
[2020-10-19] MEDS: PANTOPRAZOLE 40 MG/10 ML VIAL IVP SCH (21:18)
[2020-10-20] MEDS: SODIUM CHLORIDE 0.9% 1,000 ML IV SCH ×3 (04:10→13:57)
[2020-10-20] MEDS: METOPROLOL TARTRATE 12.5 MG TAB PO SCH ×2 (05:31→17:38)
[2020-10-20 05:39] LABS: Basophils % (A) 0 %; Eosinophils # (A) 0.2 k/uL (0-0.7); Eosinophils % (A) 4 %; HGB 8.9 gm/dL (13.0-17.5); Lymphocytes # (A) 1.1 k/uL (1.0-4.8); Lymphocytes % (A) 20 %; MCH 29.9 pg (25.0-35.0); MCHC 31.8 g/dL (31.0-37.0); MCV 93.9 fL (80.0-100.0); Mean Platelet Volume 7.6; Monocytes # (A) 0.3 k/uL (0-1.0); Monocytes % (A) 6 %; Neutrophils # (A) 3.9 k/uL (1.3-7.7); Neutrophils % (A) 68 %; Platelet Count 187 k/uL (150-450); RBC 2.98 m/uL (4.30-5.90); RDW 15.4 % (11.5-15.5); WBC 5.7 k/uL (3.8-10.6)
[2020-10-20 05:56] LABS: African American GFR (CKD) 24 (>60 ml/min/1.73 sqM); Anion Gap 6 mmol/L; Blood Urea Nitrogen 36 mg/dL (9-20); Calcium 8.4 mg/dL (8.4-10.2); Carbon Dioxide 24 mmol/L (22-30); Chloride 110 mmol/L (98-107); Glucose 97 mg/dL (74-99); Non-African American GFR(CKD) 21 (>60 ml/min/1.73 sqM); Potassium 4.8 mmol/L (3.5-5.1); Sodium 140 mmol/L (137-145)
[2020-10-20] MEDS ORDERED: METOPROLOL TARTRATE 12.5 MG TAB PO SCH (06:30)
[2020-10-20] MEDS: CHOLECALCIFEROL 25 MCG (1000 IU) TABLET PO SCH (08:42)
[2020-10-20] MEDS: allopurinoL 100 MG TAB PO SCH (08:43)
[2020-10-20] MEDS: CYANOCOBALAMIN 500 MCG TAB PO SCH (08:43)
[2020-10-20] MEDS: PANTOPRAZOLE 40 MG/10 ML VIAL IVP SCH (08:44)
[2020-10-20 11:29] LABS: Iron 41 ug/dL (65-175); Total Iron Binding Capacity 202 ug/dL (228-460)
[2020-10-20 11:41] LABS: Ferritin 424.5 ng/mL (22.0-322.0)
[2020-10-20] MEDS ORDERED: ALPRAZolam 0.25 MG TAB PO PRN (16:39)
[2020-10-20] MEDS ORDERED: HYDROcodone/APAP 5-325MG 1 EACH TAB PO PRN (16:39)
--- NOTE | 2020-10-20 17:48 | PN ---
PROGRESS NOTE DATE OF SERVICE: 10/20/2020 This 75-year-old gentleman being followed Dr. Olguin in the outpatient setting admitted with dehydration, acute renal failure, prerenal renal failure. Patient also has hyperkalemia. The patient is started on IV fluids at this time. Nephrology is following the patient. Hemoglobin is 8.9. Creatinine is 2.82 today. INR also low at this time with high ferritin. UA showed some minimal microscopic hematuria. PAST MEDICAL HISTORY: Reviewed. REVIEW OF SYSTEMS: CARDIOVASCULAR system: No angina. RESPIRATION: As mentioned earlier. GI: As mentioned earlier. : as mentioned earlier. Nervous System: No numbness or weakness. CURRENT MEDICATIONS: Zyloprim, vitamin D3, Lopressor, Narcan and Protonix. PHYSICAL EXAMINATION: Patient is alert and oriented x3. Pulse 69, blood pressure 140/77, respirations 16, temperature 98.4, pulse ox 100 percent on room air. HEENT: Conjunctivae normal. NECK: No JVD. CARDIOVASCULAR: S1, S2 muffled. RESPIRATORY SYSTEM: Breath sounds diminished at the bases. No rhonchi. No crackles. ABDOMEN: Soft, nontender. LEGS are no edema. No swelling. NERVOUS SYSTEM: No focal deficits. LABORATORY DATA: Hemoglobin is 8.9, sodium 130, potassium 4.6. ASSESSMENT: 1. Acute renal failure with acute tubular necrosis with prerenal renal failure with dehydration. 2. Hyperkalemia present on admission. 3. Anemia, normocytic anemia of chronic disease possibly. 4. Microscopic hematuria. 5. History of diverticulitis. 6. History of gallbladder calculus. 7. History of gout. 8. History of benign prostatic hypertrophy. 9. Asymptomatic cholelithiasis. RECOMMENDATIONS AND DISCUSSION: I recommend to continue current medications, symptomatic treatment. We will continue to monitor. Prognosis guarded. Further recommendations to follow. MMODL / IJN: [id number] /
--- NOTE | 2020-10-20 19:57 | CONS ---
CONSULTATION REASON FOR CONSULT: Renal failure. HISTORY OF PRESENT ILLNESS: Patient is a 75-year-old male with previous history of chronic kidney disease NKF stage III, baseline creatinine about 1.2-1.4 mg/dL. The patient has recently had worsening renal function. He was admitted to the hospital on October 06 with a creatinine of 3.1 mg/dL. He did receive IV hydration. Serum creatinine had improved to 2.8 and he was discharged. However, he comes back now with a creatinine of 3.0 and a potassium of 5.3. The patient denies any change in his urination. He denies use of any nonsteroidal anti-inflammatory agents. He did admit to increased potassium intake over the last few weeks. Blood pressure was slightly on the lower side, although not significantly low. The patient is currently maintained on IV fluids. He denies any dizziness, lightheadedness. UA shows 1+ protein, moderate blood. Ultrasound on his last admission on 10/07/2020 did not show any evidence of hydronephrosis. Patient denies any nausea, vomiting, diarrhea or abdominal pain. PAST MEDICAL HISTORY: Significant for hypertension, gout, CKD, diverticulitis, gallbladder calculus, anemia. SOCIAL HISTORY: Negative for smoking, drug abuse or alcohol abuse. PAST SURGICAL HISTORY: None. MEDICATIONS: Medications prior to admission included zyloprim, vitamin D3, B12, Lopressor, ( ). ALLERGIES: Include CIPRO, LEVAQUIN, PENICILLIN, SULFA, TETANUS TOXOID. EXAMINATION: Today patient is comfortable, awake, he is not in any acute distress. Blood pressure this morning 126/73, heart rate 58 per minute, he is afebrile. Examination of the heart S1, S2. Examination of the lungs, bilateral breath sounds are heard. Abdomen is soft, nontender. Examination of lower extremities shows no evidence of edema. [employer]PRESENTATIVE exam grossly intact. LAB: Show sodium of 140, potassium 4.8, chloride 110, BUN 36, creatinine 2.8, hemoglobin 8.9 g/dL. UA shows 1+ protein, moderate blood, RBCs 13, WBCs 2. ASSESSMENT: 1. Acute kidney injury, possibly prerenal. However, there was no further improvement in renal function since his last hospitalization. The patient's baseline is about 1.2-1.3 mg/dL. His UA does show some protein and blood. I will check serologies to rule out any other underlying cause of worsening renal function in terms of glomerulonephritis. There is no evidence of obstruction noted on the ultrasound and blood pressure is not significantly low. Continue with the IV fluids for now. 2. Chronic kidney disease stage 3. Baseline creatinine about 1.2-1.4 mg/dL all the way back to 2014, etiology nephrosclerosis. 3. Mild hyperkalemia associated with acute kidney injury and increased intake of high potassium containing foods. The patient is advised regarding low-potassium diet. PLAN: Continue with IV fluids. Check baseline serologies. Repeat labs in a.m. The patient will need outpatient followup. If there is no improvement in renal function, he will be considered for a kidney biopsy. Thank you for this consultation. Will continue to follow the patient during his hospitalization. EDINSON / TAN: [id number] /
[2020-10-20] MEDS: HEPARIN SODIUM,PORCINE/PF 5,000 UNIT/0.5 ML SYRINGE SQ SCH (22:20)
[2020-10-21] MEDS: METOPROLOL TARTRATE 12.5 MG TAB PO SCH (05:40)
[2020-10-21 07:24] VITALS: BP 129/74; PULSE 56; RESP 14; TEMP 97.8
[2020-10-21] MEDS ORDERED: PANTOPRAZOLE 40 MG TABLET PO SCH (07:30)
[2020-10-21] MEDS: CYANOCOBALAMIN 500 MCG TAB PO SCH (08:31)
[2020-10-21] MEDS: CHOLECALCIFEROL 25 MCG (1000 IU) TABLET PO SCH (08:34)
[2020-10-21] MEDS: HEPARIN SODIUM,PORCINE/PF 5,000 UNIT/0.5 ML SYRINGE SQ SCH (08:35)
[2020-10-21] MEDS: allopurinoL 100 MG TAB PO SCH (08:35)
[2020-10-21] MEDS: SODIUM CHLORIDE 0.9% 1,000 ML IV SCH (08:43)
[2020-10-21 09:06] LABS: Basophils # (A) 0.02 X 10*3/uL (0.00-0.10); Basophils % (A) 0.4 %; Eosinophils # (A) 0.33 X 10*3/uL (0.04-0.35); Eosinophils % (A) 5.8 %; HCT 27.3 % (39.6-50.0); HGB 8.7 g/dL (13.0-17.0); Lymphocytes # (A) 1.17 X 10*3/uL (0.90-5.00); Lymphocytes % (A) 20.6 %; MCH 30.2 pg (27.0-32.0); MCHC 31.9 g/dL (32.0-37.0); MCV 94.8 fL (80.0-97.0); Mean Platelet Volume 11.4 fL (9.5-12.2); Monocytes # (A) 0.52 X 10*3/uL (0.20-1.00); Monocytes % (A) 9.1 %; Neutrophils # (A) 3.63 X 10*3/uL (1.80-7.70); Neutrophils % (A) 63.7 %; Platelet Count 189 X 10*3/uL (140-440); RBC 2.88 X 10*6/uL (4.40-5.60); RDW 15.1 % (11.5-14.5); WBC 5.69 X 10*3/uL (4.50-10.00)
[2020-10-21 10:14] LABS: African American GFR (CKD) 29.7 (60.0-200.0); Anion Gap 5.9 mmol/L (4.00-12.00); BUN/Creat Ratio 14.17 Ratio (12.00-20.00); Calcium 7.9 mg/dL (8.7-10.3); Carbon Dioxide 22.1 mmol/L (21.6-31.8); Non-African American GFR(CKD) 25.6 (60.0-200.0); Potassium 4.5 mmol/L (3.5-5.5)
--- NOTE | 2020-10-21 13:57 | PN ---
PROGRESS NOTE Patient is seen for followup for acute kidney injury on top of chronic kidney disease. He was admitted with a creatinine of about 3.0. Patient is maintained on IV fluids and creatinine is down to 2.4 but his baseline is as low as 1.2-1.3 mg/dL. There is no evidence of obstruction and the serologies were ordered since there was evidence of blood and protein on the urinalysis. I have discussed with the patient that he could be discharged but he needs to follow up in the office next week with plans for possible kidney biopsy if renal function is worse again. PHYSICAL EXAMINATION: On examination today, blood pressure 129/74, heart rate 56 per minute, he is afebrile. Examination of the heart S1, S2. Examination of the lungs, bilateral breath sounds are heard. Abdomen is soft, nontender. Examination of lower extremities shows no evidence of edema. [employer] exam grossly intact. LAB: Show sodium 141, potassium 4.5, chloride 113, BUN 34, creatinine 2.4, hemoglobin 8.7 g/dL. ASSESSMENT: 1. Acute kidney injury, prerenal and need to rule out underlying acute GN, given the blood and protein in the urine. Serologies have been ordered, they are currently pending. Patient's renal function improved with IV hydration. He could be discharged but needs to follow up closely as outpatient. We will repeat labs again prior to his office visit. 2. Mild hyperkalemia, currently improved. This was mostly associated with acute kidney injury and increased intake of potassium containing foods. 3. Chronic kidney disease secondary to nephrosclerosis, previous creatinine as low as about 1.2-1.4 mg/dL. PLAN: Await serologies. Patient can be discharged, follow up as outpatient in one week's time. Discussed kidney biopsy based on renal function as outpatient. MMODL / IJN: [id number] /
[2020-10-21 15:16] LABS: Hepatitis B Surface AB- Quant <3.5 mIU/mL; Hepatitis B Surface Antibody Non-Reactive (Non-Reactive); Hepatitis B Surface Antigen Non-Reactive (Non-Reactive); Hepatitis C IgG Antibody Non-Reactive (Non-Reactive)
--- NOTE | 2020-10-21 16:47 | P.DS ---
Providers Date of admission: 10/19/20 14:58 Expected date of discharge: 10/21/20 Attending physician: Jack Jordan MD Consults: 10/19/20 14:25 Consult Physician Routine Consulting Provider: Heather Dennis Consult Reason/Comments: ROCKY, Hyperkalemia Do you want consulting provider notified?: Yes Primary care physician: Yovani Olguin Hospital Course: Final diagnosis Acute renal failure with acute tubular necrosis with prerenal renal failure with dehydration Hyperkalemia, present on admission Anemia, normocytic anemia of chronic disease possibly Microscopic hematuria history of diverticulitis history of gallbladder calculus history of gout History of benign prostatic hypertrophy Asymptomatic cholelithiasis Full code Discharge disposition Patient is being discharged in a stable condition with guarded prognosis to home. Patient will follow-up with Dr. Olguin in the outpatient setting upon discharge. Patient is to also follow-up with nephrology Dr. Palmer as scheduled on October 30. Patient also instructed to follow-up with cardiology Dr. Woodson as he has a stress test outpatient scheduled for November 04. Recommended repeat labs and prescriptions provided to monitor kidney functions along with electrolytes. Total time taken is greater than 35 minutes. Hospital course This is a 75-year-old male who was recently admitted with dehydration, acute renal failure him a prerenal renal failure and was being closely monitored. Patient also was found to have hyperkalemia which was corrected. Patient was started on IV fluids showing some improvement in kidney functions and trending down. Patient does have a scheduled appointment on October 30 with nephrology and also provide prescription for repeat labs and recommend having labs done on Tuesday prior to the Tuesday appointment. Patient's creatinine today is 2.4 with a BUN of 34 and current potassium is 4.5. Hepatitis panel was negative. Encouraged fluids per nephrology recommendations. Patient also has a scheduled outpatient stress test with Dr. Woodson and instructed to keep the appointment. Patient is adamant about going home today. Currently no reports of chest pain, shortness of breath, or palpitations. Patient is afebrile. No reports of nausea or vomiting and patient is tolerating diet. Patient will be discharged home today. On exam vital signs are stable. Cardio S1, S2 are muffled. Respiratory system shows diminished breath sounds at the bases with no wheezing or rhonchi noted. Abdomen is soft and nontender. Nervous system shows no focal deficits. Please refer to medication reconciliation sheet for a list of medications. Patient Condition at Discharge: Stable Plan - Discharge Summary Discharge Rx Participant: No New Discharge Prescriptions: Continue Allopurinol [Zyloprim] 200 mg PO DAILY Cholecalciferol [Vitamin D3 (25 Mcg = 1000 Iu)] 50 mcg PO DAILY Lutein 10 mg PO DAILY Cyanocobalamin [Vitamin B-12] 500 mcg PO DAILY Zeaxantain 5 mg PO DAILY Metoprolol Tartrate [Lopressor] 12.5 mg PO BID@0630,1830 Discharge Medication List Allopurinol [Zyloprim] 200 mg PO DAILY 05/05/20 [History] Cholecalciferol [Vitamin D3 (25 Mcg = 1000 Iu)] 50 mcg PO DAILY 10/19/20 [History] Cyanocobalamin [Vitamin B-12] 500 mcg PO DAILY 10/19/20 [History] Lutein 10 mg PO DAILY 10/19/20 [History] Metoprolol Tartrate [Lopressor] 12.5 mg PO BID@629,18310/19/20 [History] Zeaxantain 5 mg PO DAILY 10/19/20 [History] Follow up Appointment(s)/Referral(s): Oanh Woodson MD [STAFF PHYSICIAN] - 1 Week (has outpatient stress test on 11/04 scheduled) Yovani Olguin MD [Primary Care Provider] - 1-2 days Farhan Palmer DO [STAFF PHYSICIAN] - 10/30/20 (has 10-30 appt already) Ambulatory/Diagnostic Orders: Complete Blood Count w/diff [LAB.AMB] Time Frame: 1 Week, Location: None Selected Patient Instructions/Handouts: A-fib (Atrial Fibrillation) (GEN), Acute Kidney Injury (GEN), Chronic Kidney Disease (GEN), Chronic Kidney Disease Diet (GEN), DASH Eating Plan (GEN), Low-Sodium Diet (GEN), Impaired Kidney Function (GEN), Glomerular Filtration Rate Test (GEN) Activity/Diet/Wound Care/Special Instructions: Activity Limited until follow-up Keep your scheduled appointment with nephrology on October 30 Keep your scheduled appointment with cardiology stress test on November 04 Follow-up with her primary care provider upon discharge Continue with medications as prescribed Continue with low potassium renal diet Repeat labs for next week Tuesday prior to nephrology appointment Continue with fluids as discussed with nephrology Discharge Disposition: HOME SELF-CARE
[2020-10-21 17:08] LABS: Anti-DNA, DS unit <1.0 IU/mL; DNA Double-Stranded NEGATIVE (NEGATIVE)
== END 2020-10-21 13:45 | disposition home or self-care (01) ==
LOC: EC 11:49 → 6NMEDSUR 14:58
PROVIDERS: ADMIT Internal Medicine; ATTEND Internal Medicine
DX: N17.0 Acute kidney failure with tubular necrosis (principal); E87.5 Hyperkalemia; E86.0 Dehydration; I12.9 Hypertensive chronic kidney disease with stage 1 through stage 4 chronic kidney disease, or unspecified chronic kidney disease; N18.30 Chronic kidney disease, stage 3 unspecified; D64.9 Anemia, unspecified; K57.90 Diverticulosis of intestine, part unspecified, without perforation or abscess without bleeding; M10.9 Gout, unspecified; K80.20 Calculus of gallbladder without cholecystitis without obstruction; E55.9 Vitamin D deficiency, unspecified; E53.8 Deficiency of other specified B group vitamins; N40.0 Benign prostatic hyperplasia without lower urinary tract symptoms; R31.29 Other microscopic hematuria; Z79.899 Other long term (current) drug therapy; Z88.1 Allergy status to other antibiotic agents; Z88.0 Allergy status to penicillin; Z88.2 Allergy status to sulfonamides; Z88.7 Allergy status to serum and vaccine; Z83.2 Family history of diseases of the blood and blood-forming organs and certain disorders involving the immune mechanism
CPT/HCPCS: 96376; 96361 ×2; 96372; 96374; 99285; 36415; 93005; 86255; 86160 ×2; 86803; 84154; 84153; 80053; 80048 ×2; 82728; 83540; 83550; 83735; 85025 ×3; 86706; 87340; 81001; 86038; 86225; 86334; 86335; G0378 ×3; C9113 ×2; J1644

== ENCOUNTER 2020-11-14 06:50 | Emergency (ER) | payer MEDICARE ==
[2020-11-14 06:54] VITALS: RESP 18; TEMP 98.2
[2020-11-14] MEDS ORDERED: LIDOCAINE 1% INJ 10MG/ML (20 ML MDV) SQ ONE (06:59)
[2020-11-14] MEDS: ACETAMINOPHEN TAB 500 MG TAB PO STA ×2 (07:27→08:03)
[2020-11-14] MEDS ORDERED: ONDANSETRON ODT 4 MG TAB PO STA (07:30)
--- NOTE | 2020-11-14 07:54 | CT ---
EXAMINATION TYPE: CT brain wo con DATE OF EXAM: 11/14/2020 HISTORY: Fall with left brow laceration this am. Not on thinners CT DLP: 1173.4 mGycm. Automated Exposure Control for Dose Reduction was Utilized. TECHNIQUE: CT scan of the head is performed without contrast. COMPARISON: None. FINDINGS: There is no acute intracranial hemorrhage or midline shift identified. There is mild diff use ventricular and sulcal prominence consistent with diffuse age-related cerebral atrophy. Lares whi te matter differentiation is maintained. The globes are intact and the visualized sinuses are clear. The calvarium is intact. Patchy opacity of mastoid air cells is present. IMPRESSION: No acute intracranial hemorrhage or midline shift.
[2020-11-14] MEDS ORDERED: TOPICAL SKIN ADHESIVE 1 EACH AMP TOPICAL ONE (07:57)
[2020-11-14] MEDS ORDERED: KETOROLAC 15 MG/ML 1 ML VIAL IM STA (08:02)
--- NOTE | 2020-11-14 08:26 | ED ---
Fall HPI - General Chief Complaint: Fall Stated Complaint: Fall,Head Injury Time Seen by Provider: 11/14/20 06:55 Source: patient, RN notes reviewed Mode of arrival: ambulatory - History of Present Illness Initial Comments: Patient is a 75-year-old male that presents to emergency department complaining of a left eyebrow laceration after tripping and falling. He denied taking any blood thinners or losing consciousness. He noted that he was in moderate amounts pain that was approximate 5 out of 10. He noted that he did not take any Tylenol Motrin prior to arrival. He denied any confusion lightheadedness. Patient was otherwise a well-appearing 75-year-old male. He said that he would like to go home today. He denied any chest pain shortness of breath headache nausea vomiting diarrhea constipation fever fatigue chills. - Related Data Home Medications Medication Instructions Recorded Confirmed Allopurinol [Zyloprim] 200 mg PO DAILY 05/05/20 10/19/20 Cholecalciferol [Vitamin D3 (25 50 mcg PO DAILY 10/19/20 10/19/20 Mcg = 1000 Iu)] Cyanocobalamin [Vitamin B-12] 500 mcg PO DAILY 10/19/20 10/19/20 Lutein 10 mg PO DAILY 10/19/20 10/19/20 Metoprolol Tartrate [Lopressor] 12.5 mg PO BID@0630,1830 10/19/20 10/19/20 Zeaxantain 5 mg PO DAILY PRN 10/19/20 10/19/20 Phenylephrine HCl/Acetaminophn 1 each PO ONCE PRN 11/13/20 11/13/20 [Tylenol Sinus Headache Caplet] Previous Rx's Medication Instructions Recorded Ondansetron Odt [Zofran Odt] 4 mg PO Q8HR PRN #10 tab 11/14/20 Allergies Allergy/AdvReac Type Severity Reaction Status Date / Time ciprofloxacin [From Cipro] Allergy Rash/Hives Verified 11/14/20 06:54 levofloxacin Allergy Rash/Hives Verified 11/14/20 06:54 Penicillins Allergy Rash/Hives Verified 11/14/20 06:54 Sulfa (Sulfonamide Allergy Rash/Hives Verified 11/14/20 06:54 Antibiotics) Tetanus Vaccines and Toxoid Allergy Rash/Hives Verified 11/14/20 06:54 [Tetanus Vaccines & Toxoid] Review of Systems ROS Statement: Those systems with pertinent positive or pertinent negative responses have been documented in the HPI. ROS Other: All systems not noted in ROS Statement are negative. Past Medical History Past Medical History: Atrial Fibrillation, Renal Disease Additional Past Medical History / Comment(s): Diverticulitis of intestine, calculus of GB, calculus of kidney, gout bilateral feet and toes. anemia, low kidney function History of Any Multi-Drug Resistant Organisms: None Reported Past Surgical History: No Surgical Hx Reported Past Anesthesia/Blood Transfusion Reactions: No Reported Reaction Additional Past Anesthesia/Blood Transfusion Reaction / Comment(s): Pt states he has never had surgery or blood transfusion. Past Psychological History: No Psychological Hx Reported Smoking Status: Never smoker Past Alcohol Use History: None Reported Past Drug Use History: None Reported - Past Family History Father Family Medical History: No Reported History Additional Family Medical History / Comment(s): Father lived until he was 93 yrs old. Mother Additional Family Medical History / Comment(s): Mother had Mediterarean anemia. General Exam General appearance: alert, in no apparent distress Head exam: Present: normocephalic, normal inspection. Absent: atraumatic (3 cm left eyebrow laceration, well approximated.) Eye exam: Present: normal appearance, PERRL, EOMI. Absent: scleral icterus, conjunctival injection, periorbital swelling Neck exam: Present: normal inspection Respiratory exam: Present: normal lung sounds bilaterally. Absent: respiratory distress, wheezes, rales, rhonchi, stridor Cardiovascular Exam: Present: regular rate, normal rhythm, normal heart sounds. Absent: systolic murmur, diastolic murmur, rubs, gallop, clicks GI/Abdominal exam: Present: soft, normal bowel sounds. Absent: distended, tenderness, guarding, rebound, rigid Extremities exam: Present: normal inspection, full ROM, normal capillary refill. Absent: tenderness, pedal edema, joint swelling, calf tenderness Neurological exam: Present: alert, oriented X3 Psychiatric exam: Present: normal affect, normal mood Skin exam: Present: warm, dry, intact, normal color. Absent: rash Course Vital Signs 11/14/20 06:51 Temperature 98.2 F Pulse Rate 63 Respiratory 18 Rate Blood Pressure 148/91 O2 Sat by Pulse 99 Oximetry Procedures - Laceration Laceration #1 Consent Obtained: verbal consent Indication: laceration Site: face (Left eyebrow) Size (cm): 3 Description: linear Depth: simple, single layer Anesthetic Used: lidocaine 1% Anesthesia Technique: local infiltration Pre-repair: irrigated extensively Type of Sutures: nylon Size of Sutures: 6-0 Number of Sutures: 3 Technique: simple, interrupted Patient Tolerated Procedure: well, no complications Laceration #2 Consent Obtained: verbal consent Indication: laceration Site: face (Bridge of nose) Size (cm): 1 Description: linear Depth: simple, single layer Pre-repair: irrigated extensively Type of Sutures: other (glue) Patient Tolerated Procedure: well, no complications Medical Decision Making - Medical Decision Making Patient is a 75-year-old male that presents to the emergency Department complaining of left eyebrow laceration and nose abrasion after falling. CT of the brain ordered. Nurse reports the patient was nauseous while sitting up in bed after the CT, 4 mg of Zofran was given orally. CT of the brain negative for any acute intracranial process or midline shift. 15 g of Toradol ordered for pain control. Patient tolerated suturing well. Case discussed with Dr. Moody, patient discharge home with follow up primary care. - Radiology Data Radiology results: report reviewed, image reviewed CT of the brain: No acute intracranial process or midline shift seen. Disposition Clinical Impression: Fall, Laceration, Concussion Disposition: HOME SELF-CARE Condition: Stable Instructions (If sedation given, give patient instructions): Fall Prevention for Older Adults (ED) Additional Instructions: Please return to the Emergency Department if symptoms worsen or any other concerns. Please return in 5-7 days to have sutures removed. Take Tylenol and Motrin as needed for pain control. Follow-up with primary care in the next 1-2 days. Is patient prescribed a controlled substance at d/c from ED?: No Referrals: Yovani Olguin MD [Primary Care Provider] - 1-2 days Time of Disposition: 08:26
[2020-11-14 08:54] VITALS: BP 134/71; PULSE 51
== END 2020-11-14 08:53 | disposition home or self-care (01) ==
LOC: EC 06:50
DX: S01.81XA Laceration without foreign body of other part of head, initial encounter (principal); I48.91 Unspecified atrial fibrillation; Z88.0 Allergy status to penicillin; Z88.2 Allergy status to sulfonamides; Z88.7 Allergy status to serum and vaccine; Z88.1 Allergy status to other antibiotic agents; Z87.442 Personal history of urinary calculi; W01.0XXA Fall on same level from slipping, tripping and stumbling without subsequent striking against object, initial encounter
CPT/HCPCS: 99283; 12013; 70450; J2001

== ENCOUNTER → 2021-01-15 | Outpatient (CLI) | payer MEDICARE ==
--- NOTE | 2021-01-15 10:01 | XR ---
EXAMINATION TYPE: XR chest 2V DATE OF EXAM: 01/15/2021 COMPARISON: NONE HISTORY: Proteinuria. History of Atrial fibrillation with cough per order. TECHNIQUE: Frontal and lateral views of the chest are obtained. FINDINGS: There is no focal air space opacity, pleural effusion, or pneumothorax seen. The cardiac silhouette size is within normal limits. The osseous structures are intact. IMPRESSION: No acute process.
== END | disposition home or self-care (01) ==
LOC: RADXRMAIN 08:45
PROVIDERS: ATTEND Internal Medicine
DX: I48.91 Unspecified atrial fibrillation (principal); R80.9 Proteinuria, unspecified
CPT/HCPCS: 71046

== ENCOUNTER 2021-02-12 17:58 | Inpatient (IN) | payer MEDICARE ==
[2021-02-12 21:31] LABS: Basophils % (A) 0 %; Eosinophils % (A) 0 %; HCT 32.7 % (39.0-53.0); HGB 10.3 gm/dL (13.0-17.5); Lymphocytes # (A) 1.4 k/uL (1.0-4.8); Lymphocytes % (A) 14 %; MCH 29.7 pg (25.0-35.0); MCHC 31.5 g/dL (31.0-37.0); MCV 94.1 fL (80.0-100.0); Mean Platelet Volume 7.9; Monocytes # (A) 0.4 k/uL (0-1.0); Monocytes % (A) 4 %; Neutrophils # (A) 8.5 k/uL (1.3-7.7); Neutrophils % (A) 81 %; Platelet Count 506 k/uL (150-450); RBC 3.47 m/uL (4.30-5.90); WBC 10.5 k/uL (3.8-10.6)
--- NOTE | 2021-02-12 21:35 | ED ---
Recheck HPI - General Chief Complaint: Recheck/Abnormal Lab/Rx Stated Complaint: Abd Labs Time Seen by Provider: 02/12/21 20:42 Source: patient Mode of arrival: wheelchair Limitations: no limitations - History of Present Illness Initial Comments: 75 year-old male patient presents to the emergency department for evaluation of elevated phosphorus level. Patient states he is being evaluated for kidney issues and his backer up called him with results of labs today. Recommended he come into the ER due to high phosphorus. He should states that he is feeling well. States he does have some issues with his memory today. Patient denies any recent rash, fever, chills, cough, shortness of breath, chest pain, abdominal pain, nausea, vomiting, diarrhea, constipation, back pain, numbness, tingling, dizziness, weakness, hematuria, dysuria, urinary urgency, urinary frequency, headache, visual changes, or any other complaints. - Related Data Home Medications Medication Instructions Recorded Confirmed Allopurinol [Zyloprim] 200 mg PO DAILY 05/05/20 02/12/21 Cholecalciferol [Vitamin D3 (25 50 mcg PO DAILY 10/19/20 02/12/21 Mcg = 1000 Iu)] Cyanocobalamin [Vitamin B-12] 500 mcg PO DAILY 10/19/20 02/12/21 Lutein 10 mg PO DAILY 10/19/20 02/12/21 Metoprolol Tartrate [Lopressor] 12.5 mg PO BID 10/19/20 02/12/21 Allergies Allergy/AdvReac Type Severity Reaction Status Date / Time ciprofloxacin [From Cipro] Allergy Rash/Hives Verified 02/12/21 23:25 levofloxacin Allergy Rash/Hives Verified 02/12/21 23:25 Penicillins Allergy Rash/Hives Verified 02/12/21 23:25 Sulfa (Sulfonamide Allergy Rash/Hives Verified 02/12/21 23:25 Antibiotics) Tetanus Vaccines and Toxoid Allergy Rash/Hives Verified 02/12/21 23:25 [Tetanus Vaccines & Toxoid] Review of Systems ROS Statement: Those systems with pertinent positive or pertinent negative responses have been documented in the HPI. ROS Other: All systems not noted in ROS Statement are negative. Past Medical History Past Medical History: Atrial Fibrillation, Renal Disease Additional Past Medical History / Comment(s): Diverticulitis of intestine, calculus of GB, calculus of kidney, gout bilateral feet and toes. anemia, low kidney function History of Any Multi-Drug Resistant Organisms: None Reported Past Surgical History: No Surgical Hx Reported Past Anesthesia/Blood Transfusion Reactions: No Reported Reaction Additional Past Anesthesia/Blood Transfusion Reaction / Comment(s): Pt states he has never had surgery or blood transfusion. Past Psychological History: No Psychological Hx Reported Smoking Status: Never smoker Past Alcohol Use History: None Reported Past Drug Use History: None Reported - Past Family History Father Family Medical History: No Reported History Additional Family Medical History / Comment(s): Father lived until he was 93 yrs old. Mother Additional Family Medical History / Comment(s): Mother had Mediterarean anemia. General Exam Limitations: no limitations General appearance: alert, in no apparent distress, other (This is a well- developed, well-nourished adult male in no acute distress.) ENT exam: Present: normal exam, normal oropharynx, mucous membranes moist Respiratory exam: Present: normal lung sounds bilaterally. Absent: respiratory distress, wheezes, rales, rhonchi, stridor Cardiovascular Exam: Present: regular rate, normal rhythm, normal heart sounds. Absent: systolic murmur, diastolic murmur, rubs, gallop, clicks GI/Abdominal exam: Present: soft, normal bowel sounds. Absent: distended, tenderness, guarding, rebound, rigid Neurological exam: Present: alert, oriented X3, CN II-XII intact Psychiatric exam: Present: normal affect, normal mood Skin exam: Present: warm, dry, intact, normal color. Absent: rash Course Vital Signs 02/12/21 02/12/21 18:48 21:15 Temperature 97.0 F L Pulse Rate 91 72 Respiratory 18 18 Rate Blood Pressure 120/77 127/82 O2 Sat by Pulse 100 100 Oximetry Medical Decision Making - Medical Decision Making 75-year-old male patient presented to the emergency department for evaluation of elevated phosphorus level. He was sent in by his primary care physician. Labs reviewed and did reveal hemoglobin 10.3, sodium 133, potassium 5.8, carbon dioxide 15, BUN 127, creatinine 6.93, phosphorus 7.7, magnesium 2.9. Tested negative for COVID. We'll be admitted to the hospital for further evaluation by nephrology. Case is discussed with my attending Dr. Rosa. - Lab Data Result diagrams: 02/12/21 21:24 02/12/21 21:24 Lab Results 02/12/21 02/12/21 Range/Units 21:24 21:24 WBC 10.5 (3.8-10.6) k/uL RBC 3.47 L (4.30-5.90) m/uL Hgb 10.3 L (13.0-17.5) gm/dL Hct 32.7 L (39.0-53.0) % MCV 94.1 (80.0-100.0) fL MCH 29.7 (25.0-35.0) pg MCHC 31.5 (31.0-37.0) g/dL RDW 16.0 H (11.5-15.5) % Plt Count 506 H (150-450) k/uL MPV 7.9 Neutrophils % 81 % Lymphocytes % 14 % Monocytes % 4 % Eosinophils % 0 % Basophils % 0 % Neutrophils # 8.5 H (1.3-7.7) k/uL Lymphocytes # 1.4 (1.0-4.8) k/uL Monocytes # 0.4 (0-1.0) k/uL Eosinophils # 0.0 (0-0.7) k/uL Basophils # 0.0 (0-0.2) k/uL Sodium 133 L (137-145) mmol/L Potassium 5.8 H (3.5-5.1) mmol/L Chloride 105 (98-107) mmol/L Carbon Dioxide 15 L (22-30) mmol/L Anion Gap 13 mmol/L BUN 127 H* (9-20) mg/dL Creatinine 6.93 H (0.66-1.25) mg/dL Est GFR (CKD-EPI)AfAm 8 (>60 ml/min/1.73 sqM) Est GFR (CKD-EPI)NonAf 7 (>60 ml/min/1.73 sqM) Glucose 119 H (74-99) mg/dL Calcium 9.2 (8.4-10.2) mg/dL Phosphorus 7.7 H (2.5-4.5) mg/dL Magnesium 2.9 H (1.6-2.3) mg/dL Total Bilirubin 0.7 (0.2-1.3) mg/dL AST 22 (17-59) U/L ALT 11 (4-49) U/L Alkaline Phosphatase 290 H (38-126) U/L Total Protein 6.9 (6.3-8.2) g/dL Albumin 3.5 (3.5-5.0) g/dL Disposition Clinical Impression: Acute renal failure, Hyperkalemia, Hyperphosphatemia Disposition: ADMITTED IP TO THIS [facility] Condition: Serious Decision to Admit Reason: Admit from [facility] Decision Date: 02/12/21 Decision Time: 23:13
[2021-02-12 21:40] LABS: Albumin 3.5 g/dL (3.5-5.0); Calcium 9.2 mg/dL (8.4-10.2); Magnesium 2.9 mg/dL (1.6-2.3); Phosphorus 7.7 mg/dL (2.5-4.5); Potassium 5.8 mmol/L (3.5-5.1); Total Bilirubin 0.7 mg/dL (0.2-1.3); Total Protein 6.9 g/dL (6.3-8.2)
[2021-02-12] MEDS ORDERED: NALOXONE 0.4 MG/ML 1 ML VIAL IV PRN (23:10)
[2021-02-13 04:52] LABS: Appearance,Urine Cloudy (Clear); Bacteria,Urine Occasional /hpf; Bilirubin,Urine Negative (Negative); Blood,Urine Large (Negative); Color,Urine Yellow; Glucose,Urine (UA) Negative (Negative); Ketones,Urine Negative (Negative); Leukocyte Esterase,Urine Small (Negative); Mucus,Urine Rare /hpf; Nitrite,Urine Negative (Negative); Protein,Urine 1+ (Negative); RBC,Urine 169 /hpf (0-5); Specific Gravity,Urine 1.013 (1.001-1.035); Squamous Epithelial Cell,Urine <1 /hpf (0-4); Urobilinogen,Urine <2.0 mg/dL (<2.0); WBC,Urine 12 /hpf (0-5)
[2021-02-13] MEDS ORDERED: SODIUM CHLORIDE 0.9% 1,000 ML IV SCH (08:30)
[2021-02-13] MEDS: CYANOCOBALAMIN 500 MCG TAB PO SCH (09:15)
[2021-02-13] MEDS: CHOLECALCIFEROL 25 MCG (1000 IU) TABLET PO SCH (09:16)
--- NOTE | 2021-02-13 11:50 | P.HPIM ---
History of Present Illness Patient given 75-year-old male came in because of hyperphosphatasemia. Patient has a baseline creatinine of around 2.. He is to have chronic kidney disease stage IV. 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 Patient did did have history of nephrotic syndrome and to get a kidney biopsy. Patient is now found to have creatinine of 6.93 and the BUN of 127. Nephrology was consulted patient will need hemodialysis and possibly systemic steroids. Patient denied denied any complaint at this time. Hyponatremic, hyperkalemic, uremic metabolic acidosis all because of the kidney dysfunction serum calcium is within normal limits. Patient has hyperphosphatasemia. REVIEW OF SYSTEMS: CONSTITUTIONAL: No fever, no malaise, no fatigue. HEENT: No recent visual problems or hearing problems. Denied any sore throat. CARDIOVASCULAR: No chest pain, orthopnea, PND, no palpitations, no syncope. PULMONARY: No shortness of breath, no cough, no hemoptysis. GASTROINTESTINAL: No diarrhea, no nausea, no vomiting, no abdominal pain. NEUROLOGICAL: No headaches, no weakness, no numbness. HEMATOLOGICAL: Denies any bleeding or petechiae. GENITOURINARY: Denies any burning micturition, frequency, or urgency. MUSCULOSKELETAL/RHEUMATOLOGICAL: Denies any joint pain, swelling, or any muscle pain. ENDOCRINE: Denies any polyuria or polydipsia. The rest of the 14-point review of systems is negative. PHYSICAL EXAMINATION: GENERAL: The patient is alert and oriented x3, not in any acute distress. Well developed, well nourished. HEENT: Pupils are round and equally reacting to light. EOMI. No scleral icterus. No conjunctival pallor. Normocephalic, atraumatic. No pharyngeal erythema. No thyromegaly. CARDIOVASCULAR: S1 and S2 present. No murmurs, rubs, or gallops. PULMONARY: Chest is clear to auscultation, no wheezing or crackles. ABDOMEN: Soft, nontender, nondistended, normoactive bowel sounds. No palpable organomegaly. MUSCULOSKELETAL: No joint swelling or deformity. EXTREMITIES: No cyanosis, clubbing, or pedal edema. NEUROLOGICAL: Gross neurological examination did not reveal any focal deficits. SKIN: No rashes. Assessment and plan -Renal failure acute on chronic: Secondary to possible nephric syndrome patient has P-ANCA antibody positive. Nephrology will evaluated the patient patient may need hemodialysis -Anion gap and non-anion gap metabolic acidosis secondary to renal failure, pat ient will need sodium bicarbonate -Hyperkalemia secondary to renal failure -Hyperphosphatasemia patient will need phosphate binders earlier the decision to nephrology. Hyponatremia: Secondary to renal failure. DVT prophylaxis: Subcutaneous heparin Past Medical History Past Medical History: Atrial Fibrillation, Renal Disease Additional Past Medical History / Comment(s): Diverticulitis of intestine, calculus of GB, calculus of kidney, gout bilateral feet and toes. anemia, low kidney function History of Any Multi-Drug Resistant Organisms: None Reported Past Surgical History: No Surgical Hx Reported Past Anesthesia/Blood Transfusion Reactions: No Reported Reaction Additional Past Anesthesia/Blood Transfusion Reaction / Comment(s): Pt states he has never had surgery or blood transfusion. Past Psychological History: No Psychological Hx Reported Smoking Status: Never smoker Past Alcohol Use History: None Reported Past Drug Use History: None Reported - Past Family History Father Family Medical History: No Reported History Additional Family Medical History / Comment(s): Father lived until he was 93 yrs old. Mother Additional Family Medical History / Comment(s): Mother had Mediterarean anemia. Medications and Allergies Home Medications Medication Instructions Recorded Confirmed Type Allopurinol [Zyloprim] 200 mg PO DAILY 05/05/20 02/12/21 History Cholecalciferol [Vitamin D3 (25 50 mcg PO DAILY 10/19/20 02/12/21 History Mcg = 1000 Iu)] Cyanocobalamin [Vitamin B-12] 500 mcg PO DAILY 10/19/20 02/12/21 History Lutein 10 mg PO DAILY 10/19/20 02/12/21 History Metoprolol Tartrate [Lopressor] 12.5 mg PO BID 10/19/20 02/12/21 History Allergies Allergy/AdvReac Type Severity Reaction Status Date / Time ciprofloxacin [From Cipro] Allergy Rash/Hives Verified 02/12/21 23:25 levofloxacin Allergy Rash/Hives Verified 02/12/21 23:25 Penicillins Allergy Rash/Hives Verified 02/12/21 23:25 Sulfa (Sulfonamide Allergy Rash/Hives Verified 02/12/21 23:25 Antibiotics) Tetanus Vaccines and Toxoid Allergy Rash/Hives Verified 02/12/21 23:25 [Tetanus Vaccines & Toxoid] Physical Exam Vitals: Vital Signs Temp Pulse Resp BP Pulse Ox 02/13/21 06:05 97.9 F 81 18 117/68 100 02/13/21 04:25 62 18 98 02/13/21 01:25 65 18 104/71 99 02/12/21 21:15 72 18 127/82 100 02/12/21 18:48 97.0 F L 91 18 120/77 100 Intake and Output 02/12/21 02/13/21 02/13/21 22:59 06:59 14:59 Other: Weight 72.575 kg Results CBC & Chem 7: 02/12/21 21:24 02/12/21 21:24 Labs: Abnormal Lab Results - Last 24 Hours (Table) 02/12/21 02/12/21 02/12/21 Range/Units 04:24 21:24 21:24 RBC 3.47 L (4.30-5.90) m/uL Hgb 10.3 L (13.0-17.5) gm/dL Hct 32.7 L (39.0-53.0) % RDW 16.0 H (11.5-15.5) % Plt Count 506 H (150-450) k/uL Neutrophils # 8.5 H (1.3-7.7) k/uL Sodium 133 L (137-145) mmol/L Potassium 5.8 H (3.5-5.1) mmol/L Carbon Dioxide 15 L (22-30) mmol/L BUN 127 H* (9-20) mg/dL Creatinine 6.93 H (0.66-1.25) mg/dL Glucose 119 H (74-99) mg/dL Phosphorus 7.7 H (2.5-4.5) mg/dL Magnesium 2.9 H (1.6-2.3) mg/dL Alkaline Phosphatase 290 H (38-126) U/L Urine Protein 1+ H (Negative) Urine Blood Large H (Negative) Ur Leukocyte Esterase Small H (Negative) Urine RBC 169 H (0-5) /hpf Urine WBC 12 H (0-5) /hpf Urine Bacteria Occasional H (None) /hpf Urine Mucus Rare H (None) /hpf Microbiology - Last 24 Hours (Table) 02/12/21 04:24 Urine Culture - Preliminary Urine,Voided
--- NOTE | 2021-02-13 13:10 | CONS ---
CONSULTATION REASON FOR CONSULT: Renal failure. HISTORY OF PRESENT ILLNESS: Patient is a 75-year-old male with history of chronic kidney disease with a history of recent worsening of renal function noted in September of 2020. At that time patient was treated with IV fluids and he was advised kidney biopsy. Apparently this was arranged as outpatient after his hospitalization in October but it appears that it never got done and patient apparently did not proceed with that. He now returns with serum creatinine of 6.9, BUN of 127, and significant weight loss of about more than 30 pounds. Serological workup shows positive MPO antibodies. SARA and C3-C4 were negative in October of 2020. The anti MPO myeloperoxidase antibody was 37, normal is less than 20. His urine has shown evidence of hematuria and proteinuria. Patient stated that he had been having diarrhea recently and was quite weak. He states he has been voiding okay. Currently maintained on IV fluids and repeat labs are not available from today. Blood pressure has been on the lower side with systolic around 110-120 mmHg. PAST MEDICAL HISTORY: Significant for CKD, initially nephrosclerosis but worsening of function noted in September of this year. History of atrial fibrillation, history of diverticulitis, gout. PAST SURGICAL HISTORY: None. SOCIAL HISTORY: Negative for smoking, drug abuse or alcohol abuse. MEDICATIONS: Included zyloprim, vitamin D3, vitamin B12, Lopressor. ALLERGIES: Include Cipro, Levaquin, penicillin, sulfa, tetanus toxoid all cause rash and hives. REVIEW OF SYSTEMS: As per HPI. Other systems negative. EXAMINATION: Comfortable, awake, not in any acute distress. Blood pressure 117/68, heart rate 81 per minute he is afebrile. Examination of the heart S1, S2. Examination of the lungs, bilateral breath sounds are heard. Abdomen is soft, nontender. The patient is cachectic. 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 LAB: Sodium 133, potassium 5.8, chloride 105, CO2 is 15, BUN 127, creatinine 6.9, hemoglobin 10.3 g/dL. ASSESSMENT: 1. 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 The patient was apparently scheduled for kidney biopsy as outpatient but did not get it done. At this time his BUN and creatinine a significantly elevated. I will keep him on IV fluids. Repeat labs today. If there is no improvement in renal function, we will go ahead with dialysis prior to kidney biopsy which will be done most likely Tuesday. In the meantime, patient will be started on steroids with plans for the Cytoxan once the biopsy is performed. 2. Hyperkalemia associated with acute kidney injury, metabolic acidosis. We will repeat labs and based on the repeat potassium, we can give him a dose of low calcium. 3. Metabolic acidosis, non gap associated with renal failure start bicarb drip. 4. 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 PLAN: Repeat labs today. If no improvement in renal function consult vascular surgery for dialysis catheter placement. We will plan for kidney biopsy on Tuesday or Tuesday. In the meantime, patient will be started on steroids and a bicarb drip and we will treat hyperkalemia based on repeat potassium from today. Thank you for this consultation. We will continue to follow the patient with you during his hospitalization. MMODL / IJN: [id number] /
[2021-02-13 13:11] LABS: INR 1.2 (<1.2)
[2021-02-13 13:16] LABS: Calcium 8.8 mg/dL (8.4-10.2)
[2021-02-13] MEDS: predniSONE 20 MG TAB PO SCH (15:41)
[2021-02-13] MEDS: DEXTROSE 5% IN WATER 1,000 ML with SODIUM BICARB (1 MEQ/ML) 150 ML IV SCH ×2 (15:42→23:57)
[2021-02-13 16:24] LABS: Hepatitis B Surface AB- Quant 3.5 mIU/mL; Hepatitis B Surface Antibody Nonreactive (Nonreactive); Hepatitis B Surface Antigen Nonreactive (Nonreactive)
[2021-02-13] MEDS ORDERED: SODIUM ZIRCONIUM CYCLOSILICATE 10 GM PACKET PO ONE (18:36)
[2021-02-13] MEDS: HEPARIN SODIUM,PORCINE/PF 5,000 UNIT/0.5 ML SYRINGE SQ SCH (20:19)
[2021-02-14] MEDS: CYANOCOBALAMIN 500 MCG TAB PO SCH (08:46)
[2021-02-14] MEDS: CHOLECALCIFEROL 25 MCG (1000 IU) TABLET PO SCH (08:46)
[2021-02-14] MEDS: predniSONE 20 MG TAB PO SCH (08:46)
[2021-02-14] MEDS: HEPARIN SODIUM,PORCINE/PF 5,000 UNIT/0.5 ML SYRINGE SQ SCH ×2 (08:48→20:46)
[2021-02-14 11:12] LABS: Calcium 7.9 mg/dL (8.4-10.2); Potassium 4.4 mmol/L (3.5-5.1)
--- NOTE | 2021-02-14 11:51 | PN ---
PROGRESS NOTE Patient is seen for followup for acute kidney injury. He has underlying vasculitis with rapid progression of kidney disease and renal failure. The creatinine is 6.9 mg/dL from yesterday, which is up from around 3 about 3 months ago. His C-ANCA was positive, anti myeloperoxidase antibodies were positive and patient was scheduled for kidney biopsy which he did not get done and patient will be biopsied this hospitalization, but he will need a couple of treatments of hemodialysis. Patient has been reluctant and therefore I have ordered his labs again today and I have discussed with him that if his renal function is not significantly improved, it is better for him to get dialyzed before obtaining the biopsy due to risk of bleeding with significantly elevated BUN and creatinine levels. PHYSICAL EXAMINATION: On examination today, blood pressure is 117/71, heart rate 80 per minute. He is afebrile. Examination of the heart S1, S2. Examination of the lungs, bilateral breath sounds are heard. Abdomen is soft, nontender. Examination of lower extremities shows no evidence of edema. 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 LABS: Not available from today. ASSESSMENT: 1. 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 The patient will need a kidney biopsy. We will plan for Tuesday. Continue with the prednisone for now. 2. Metabolic acidosis associated with renal failure maintained on bicarb drip. 3. Hyperkalemia associated with acute kidney injury, metabolic acidosis, status post lokelma yesterday. We will repeat labs today. PLAN: Hemodialysis if renal function not significantly improved. We will plan for treatment today and tomorrow and plan for a biopsy on Tuesday. Continue with the prednisone for now. MMODL / IJN: [id number] / LLUVIA
[2021-02-14] MEDS: DEXTROSE 5% IN WATER 1,000 ML with SODIUM BICARB (1 MEQ/ML) 150 ML IV SCH (12:43)
[2021-02-14] MEDS ORDERED: LIDOCAINE 1% INJ 10MG/ML (20 ML MDV) SQ ONE (14:47)
[2021-02-14] MEDS ORDERED: MIDAZOLAM 2 MG/2 ML VIAL IV ONE ×2 (14:47)
[2021-02-14] MEDS ORDERED: IV FLUID CONTINUATION 1,000 ML IV ONE (14:49)
--- NOTE | 2021-02-14 16:57 | CONS ---
CONSULTATION This is a 75-year-old gentleman who has been admitted with history of acute on chronic renal failure. The patient has history of nephrotic syndrome. The patient is scheduled to have a kidney biopsy. The patient has a creatinine of 6.9. BUN is high of 127. I was consulted for placement of a dialysis catheter. MEDICAL HISTORY: History of A-fib. History of nephrotic syndrome. ALLERGY: PENICILLIN. PHYSICAL EXAMINATION: On examination, patient was seen in his room. NECK is supple. Trachea central. CHEST: Clear to auscultation. ABDOMEN is soft. Femorals are 2+. PLAN: Placement of the dialysis catheter. Risks and complications discussed. MMODL / IJN: [id number] /
--- NOTE | 2021-02-14 17:03 | PCN ---
PROCEDURE NOTE PREOPERATIVE DIAGNOSIS: Acute on chronic renal failure. POSTOPERATIVE DIAGNOSIS: Acute on chronic renal failure. PROCEDURE PERFORMED: Ultrasound-guided 30 cm dialysis catheter placed, right femoral approach. Sedation time is 80 minutes. DESCRIPTION OF PROCEDURE: The patient brought to the microbiology lab analyst. Right groin was prepped and drapes applied in the usual sterile manner. 1% infiltrated lidocaine in the groin and patient had IV sedation. Ultrasound-guided micropuncture introduced into the right femoral vein and micropuncture guidewire was passed. After that, we passed a sheath on the top of the guidewire. Through the sheath, we introduced the dialysis catheter. Tip of the catheter is in inferior vena cava. Flushed with heparin saline and hep-locked, secured with 3-0 nylon. Dressing applied. Patient tolerated the procedure well. EDINSON / WILLIAMN: [id number] /
--- NOTE | 2021-02-14 23:17 | P.PN ---
Subjective Progress Note Date: 02/14/21 Principal diagnosis: ROCKY Mr. Copeland is a 75-year-old male with a past medical history of atrial fibrillation, gout, nephrolithiasis, diverticulitis coming to the hospital with a chief complaint of abnormal labs. Patient was called by his supervisor unloading because of abnormal labs and was recommended to go to the emergency department for high phosphorus levels. At the time of admission patient had acute kidney injury with elevated creatinine of 6.9. Patient is being followed by nephrology. On 02/14/2021 patient was seen and examined at the bedside. He is sitting comfortably in bed appears to be no acute distress. Patient states that Dr. Dennis has spoken to him earlier and would probably start him on dialysis today. Patient was very disturbed, anxious to get the procedure done. Patient denied having any chest pain or palpitations. No cough or difficulty breathing. No fevers chills or rigors. He mentions that his urine output has been stable. P atient denies having any weakness of his extremities. On reviewing his vitals have been stable with blood pressure of 129 x 81, heart rate 60, respiratory 18, temperature 98, saturating at 97% on room air. Labs reviewed and BUN and creatinine still elevated. Objective - Vital Signs Vital signs: Vital Signs Temp 97 F L 02/14/21 08:00 Pulse 90 02/14/21 12:00 Resp 16 02/14/21 12:00 BP 120/72 02/14/21 12:00 Pulse Ox 100 02/14/21 12:00 Intake & Output 02/13/21 02/14/21 02/14/21 18:59 06:59 18:59 Weight 64 kg 63.5 kg 63.5 kg Other: # Voids 1 - Exam PHYSICAL EXAMINATION: GENERAL: The patient is alert and oriented x3, not in any acute distress. Well developed, well nourished. HEENT: Pupils are round and equally reacting to light. EOMI. No scleral icterus. No conjunctival pallor. Normocephalic, atraumatic. No pharyngeal erythema. No thyromegaly. CARDIOVASCULAR: S1 and S2 present. No murmurs, rubs, or gallops. PULMONARY: Chest is clear to auscultation, no wheezing or crackles. ABDOMEN: Soft, nontender, nondistended, normoactive bowel sounds. No palpable organomegaly. MUSCULOSKELETAL: No joint swelling or deformity. EXTREMITIES: No cyanosis, clubbing, or pedal edema. NEUROLOGICAL: Gross neurological examination did not reveal any focal deficits. SKIN: No rashes. - Labs CBC & Chem 7: 02/12/21 21:24 02/14/21 10:42 Labs: Abnormal Lab Results - Last 24 Hours (Table) 02/13/21 02/14/21 Range/Units 12:40 10:42 Sodium 134 L 131 L (137-145) mmol/L Potassium 6.0 H (3.5-5.1) mmol/L Carbon Dioxide 17 L 21 L (22-30) mmol/L BUN 127 H* 113 H* (9-20) mg/dL Creatinine 6.56 H 5.60 H (0.66-1.25) mg/dL Glucose 186 H (74-99) mg/dL Calcium 7.9 L (8.4-10.2) mg/dL Microbiology - Last 24 Hours (Table) 02/12/21 04:24 Urine Culture - Preliminary Urine,Voided Group D Enterococcus Assessment and Plan Assessment: Assessment and plan -Renal failure acute on chronic: Secondary to possible nephric syndrome patient has P-ANCA antibody positive. Nephrology will evaluated the patient hemodialysis being initiated today -Anion gap and non-anion gap metabolic acidosis secondary to renal failure, patientm on sodium bicarbonate -Hyperkalemia secondary to renal failure -Hyperphosphatasemia patient will need phosphate binders earlier the decision to nephrology. Hyponatremia: Secondary to renal failure. DVT prophylaxis: Subcutaneous heparin
[2021-02-15] MEDS: DEXTROSE 5% IN WATER 1,000 ML with SODIUM BICARB (1 MEQ/ML) 150 ML IV SCH ×2 (01:10→17:01)
[2021-02-15] MEDS: predniSONE 20 MG TAB PO SCH (08:34)
[2021-02-15] MEDS: CYANOCOBALAMIN 500 MCG TAB PO SCH (08:34)
[2021-02-15] MEDS: CHOLECALCIFEROL 25 MCG (1000 IU) TABLET PO SCH (08:34)
[2021-02-15] MEDS: HEPARIN SODIUM,PORCINE/PF 5,000 UNIT/0.5 ML SYRINGE SQ SCH ×2 (08:34→20:31)
[2021-02-15 11:23] LABS: Albumin 2.4 g/dL (3.5-5.0); Calcium 7.3 mg/dL (8.4-10.2); Magnesium 2.2 mg/dL (1.6-2.3); Phosphorus 4.7 mg/dL (2.5-4.5); Potassium 3.6 mmol/L (3.5-5.1); Total Bilirubin 0.2 mg/dL (0.2-1.3)
--- NOTE | 2021-02-15 11:43 | PN ---
PROGRESS NOTE Patient is seen for followup for acute kidney injury secondary to vasculitic GN. The patient is status post first treatment of hemodialysis yesterday. He will be dialyzed again today and there are plans for kidney biopsy tomorrow. He tolerated his treatment fairly well yesterday. PHYSICAL EXAMINATION: On examination today, blood pressure 128/69, heart rate 75 per minute. Patient is afebrile. Examination of the heart S1, S2. Examination of the lungs, bilateral breath sounds are heard. Abdomen is soft, nontender. Examination of lower extremities shows no significant edema. 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 LABS: Pending from today. Sodium 131, potassium 4.4 yesterday, serum creatinine 5.6 yesterday, predialysis. ASSESSMENT: 1. Acute kidney injury, vasculitic GN with positive MPO antibodies, scheduled for kidney biopsy tomorrow. Renal function has deteriorated in the last 2-3 months with creatinine going up to about 6.9 from 3 and initially around 1 mg/dL in April of 2020. Currently started on prednisone. The patient will be started on Cytoxan/Rituxan post biopsy. 2. Hyperkalemia associated with advanced renal failure. 3. Metabolic acidosis associated with renal failure expect improvement with ongoing dialysis. PLAN: Repeat dialysis today and then kidney biopsy tomorrow. We will give a dose of DDAVP pre biopsy tomorrow. MMODL / IJN: [id number] /
[2021-02-15] MEDS: ONDANSETRON 4 MG/2 ML VIAL IVP PRN ×2 (12:21→18:37)
--- NOTE | 2021-02-15 23:24 | P.PN ---
Subjective Progress Note Date: 02/15/21 Principal diagnosis: ROCKY Mr. Copeland is a 75-year-old male with a past medical history of atrial fibrillation, gout, nephrolithiasis, diverticulitis coming to the hospital with a chief complaint of abnormal labs. Patient was called by his celery packer because of abnormal labs and was recommended to go to the emergency department for high phosphorus levels. At the time of admission patient had acute kidney injury with elevated creatinine of 6.9. Patient is being followed by nephrology. On 02/14/2021 patient was seen and examined at the bedside. He is sitting comfortably in bed appears to be no acute distress. Patient states that Dr. Dennis has spoken to him earlier and would probably start him on dialysis today. Patient was very disturbed, anxious to get the procedure done. Patient denied having any chest pain or palpitations. No cough or difficulty breathing. No fevers chills or rigors. He mentions that his urine output has been stable. P atient denies having any weakness of his extremities. On reviewing his vitals have been stable with blood pressure of 129 x 81, heart rate 60, respiratory 18, temperature 98, saturating at 97% on room air. Labs reviewed and BUN and creatinine still elevated. On 02/15/2021 patient was seen and examined at the bedside. Patient is sitting up in the bed, he states that he feels slightly dizzy and nauseous this morning. Patient denies having any chest pain or palpitations. No cough or difficulty breathing. No abdominal pain vomiting or diarrhea. Patient has been started on hemodialysis yesterday. On reviewing the patient's vitals from this morning temperature of 97.5, heart rate 80, respiratory rate 16, blood pressure 133/70 saturating 98% on room air. On reviewing the patient's labs sodium 131, potassium 3.6, chloride 91, bicarb 30, BUN 78, creatinine 3.50. Patient medications have been reviewed. Active Medications Cholecalciferol (Cholecalciferol 25 Mcg (1000 Iu) Tablet) 50 mcg PO DAILY [facility] Last Admin: 02/15/21 08:34 Dose: 50 mcg Documented by: Cyanocobalamin (Cyanocobalamin 500 Mcg Tab) 500 mcg PO DAILY [facility] Last Admin: 02/15/21 08:34 Dose: 500 mcg Documented by: Heparin Sodium (Porcine) (Heparin Sodium,Porcine/Pf 5,000 Unit/0.5 Ml Syringe) 5,000 unit SQ Q12HR JOSS Last Admin: 02/15/21 20:31 Dose: Not Given Documented by: Sodium Bicarbonate 150 ml/ (Dextrose/Water) 1,150 mls @ 100 mls/hr IV .[id number] JOSS Last Admin: 02/15/21 17:01 Dose: 100 mls/hr Documented by: Desmopressin Acetate 18 mcg/ (Sodium Chloride) 54.5 mls @ 200 mls/hr IVPB ONCE ONE Stop: 02/16/21 08:16 Naloxone HCl (Naloxone 0.4 Mg/Ml 1 Ml Vial) 0.2 mg IV Q2M PRN PRN Reason: Opioid Reversal Ondansetron HCl (Ondansetron 4 Mg/2 Ml Vial) 4 mg IVP Q6HR PRN PRN Reason: Nausea And Vomiting Last Admin: 02/15/21 18:37 Dose: 4 mg Documented by: Prednisone (Prednisone 20 Mg Tab) 60 mg PO DAILY [facility] Last Admin: 02/15/21 08:34 Dose: 60 mg Documented by: Objective - Vital Signs Vital signs: Vital Signs Temp 97.5 F L 02/15/21 03:56 Pulse 75 02/15/21 08:00 Resp 16 02/15/21 08:00 BP 128/69 02/15/21 08:00 Pulse Ox 95 02/15/21 08:00 Intake & Output 02/14/21 02/15/21 02/15/21 19:59 06:59 18:59 Intake Total Output Total Balance Weight Intake: IV Intake, IV Titration Amount Dextrose 5% in Water 1, 000 ml @ 100 mls/hr IV . [id number] JOSS with Sodium Bicarb (1 Meq/ml) 150 ml Rx#:[id number] Output: Urine Hemodialysis Other: # Voids - Exam PHYSICAL EXAMINATION: GENERAL: The patient is alert and oriented x3, not in any acute distress. HEENT: Pupils are round and equally reacting to light. EOMI. No scleral icterus. No conjunctival pallor. Normocephalic, atraumatic. No pharyngeal erythema. No thyromegaly. CARDIOVASCULAR: S1 and S2 present. No murmurs, rubs, or gallops. PULMONARY: Chest is clear to auscultation, no wheezing or crackles. ABDOMEN: Soft, nontender, nondistended, normoactive bowel sounds. No palpable organomegaly. MUSCULOSKELETAL: No joint swelling or deformity. EXTREMITIES: No cyanosis, clubbing, or pedal edema. Dialysis cathter in right groin NEUROLOGICAL: Gross neurological examination did not reveal any focal deficits. SKIN: No rashes. - Labs CBC & Chem 7: 02/12/21 21:24 02/15/21 10:24 Labs: Abnormal Lab Results - Last 24 Hours (Table) 02/15/21 Range/Units 10:24 Sodium 131 L (137-145) mmol/L Chloride 91 L (98-107) mmol/L BUN 78 H (9-20) mg/dL Creatinine 3.50 H (0.66-1.25) mg/dL Glucose 163 H (74-99) mg/dL Calcium 7.3 L (8.4-10.2) mg/dL Phosphorus 4.7 H (2.5-4.5) mg/dL Alkaline Phosphatase 168 H (38-126) U/L Total Protein 5.0 L (6.3-8.2) g/dL Albumin 2.4 L (3.5-5.0) g/dL Microbiology - Last 24 Hours (Table) 02/12/21 04:24 Urine Culture - Final Urine,Voided Enterococcus faecalis Assessment and Plan Assessment: Assessment and plan -Renal failure acute on chronic: Secondary to possible nephric syndrome patient has P-ANCA antibody positive. Nephrology will evaluated the patient hemodialysis being initiated today -Anion gap and non-anion gap metabolic acidosis secondary to renal failure, patient on sodium bicarbonate -Hyperkalemia secondary to renal failure -Hyperphosphatasemia Hyponatremia: Secondary to renal failure. DVT prophylaxis: Subcutaneous heparin PLAN:Patient has been started on hemodialysis yesterday, received 1 session. On reviewing the labs from this morning showed significant improvement in BUN and creatinine. Patient is feeling dizzy this morning, could be due to fluid shifts. Patient will be continued on the current medication regimen. Nephrology closely following the patient and planning for 1 more session of dialysis again today. Further recommendations to follow depending on the progress of the patient
[2021-02-16] MEDS: DEXTROSE 5% IN WATER 1,000 ML with SODIUM BICARB (1 MEQ/ML) 150 ML IV SCH ×2 (02:05→15:05)
[2021-02-16] MEDS: HEPARIN SODIUM,PORCINE/PF 5,000 UNIT/0.5 ML SYRINGE SQ SCH ×2 (06:15→19:45)
[2021-02-16] MEDS: CYANOCOBALAMIN 500 MCG TAB PO SCH (06:18)
[2021-02-16] MEDS: CHOLECALCIFEROL 25 MCG (1000 IU) TABLET PO SCH (06:18)
[2021-02-16] MEDS: predniSONE 20 MG TAB PO SCH (06:18)
--- NOTE | 2021-02-16 07:52 | IR ---
EXAMINATION TYPE: IR cvc insert non tunneled DATE OF EXAM: 02/14/2021 COMPARISON: NONE HISTORY: Fluoroscopy time. Fluoroscopy was provided to the referring clinician.
[2021-02-16] MEDS ORDERED: DESMOPRESSIN ACETATE 18 MCG in SODIUM CHLORIDE 0.9% 50 ML IVPB ONE (08:00)
[2021-02-16] MEDS: SODIUM CHLORIDE 0.9% 1,000 ML IV SCH (10:21)
--- NOTE | 2021-02-16 10:35 | P.PN ---
Subjective Patient is seen in follow-up for acute kidney injury on chronic kidney disease. High suspicion for vasculitis with positive serologies. Patient had canceled it kidney biopsy outpatient and was sent to the hospital due to hyperkalemia and worsening renal function. He is scheduled to undergo kidney biopsy today. He is maintained on prednisone which was started February 15. Denies chest pain or shortness of breath. No gross hematuria. Vital signs are stable. General: The patient appeared well nourished and normally developed. HEENT: Head exam is unremarkable. LUNGS: Breath sounds decreased. HEART: Rate and Rhythm are regular. ABDOMEN: Soft, no distention. EXTREMITITES: No edema. Objective - Vital Signs Vital signs: Vital Signs Temp 98 F 02/16/21 08:00 Pulse 67 02/16/21 08:00 Resp 16 02/16/21 08:00 BP 123/66 02/16/21 08:00 Pulse Ox 99 02/16/21 08:00 Intake & Output 02/15/21 02/16/21 02/16/21 18:59 06:59 18:59 Output Total 500 0 Balance -500 0 Weight 61.7 kg Output: Urine 0 Emesis 500 Hemodialysis 0 Other: # Voids 1 0 - Labs CBC & Chem 7: 02/12/21 21:24 02/15/21 10:24 Labs: Abnormal Lab Results - Last 24 Hours (Table) 02/15/21 Range/Units 10:24 Sodium 131 L (137-145) mmol/L Chloride 91 L (98-107) mmol/L BUN 78 H (9-20) mg/dL Creatinine 3.50 H (0.66-1.25) mg/dL Glucose 163 H (74-99) mg/dL Calcium 7.3 L (8.4-10.2) mg/dL Phosphorus 4.7 H (2.5-4.5) mg/dL Alkaline Phosphatase 168 H (38-126) U/L Total Protein 5.0 L (6.3-8.2) g/dL Albumin 2.4 L (3.5-5.0) g/dL Microbiology - Last 24 Hours (Table) 02/12/21 04:24 Urine Culture - Final Urine,Voided Enterococcus faecalis Assessment and Plan Plan: Assessment: 1. Acute kidney injury secondary to ATN from hypovolemia as well as acute vasculitis. Started on prednisone February 15. Scheduled for kidney biopsy today. Started on hemodialysis due to uremia on February 14. 2. Hyperkalemia secondary to acute kidney injury. Improved postdialysis. 3. Metabolic acidosis secondary to acute kidney injury. Improved postdialysis and bicarb drip. Plan: Hemodialysis today. Next treatment on Tuesday. Scheduled for kidney biopsy today. He will receive IV DDAVP prior to the biopsy. Stop bicarb drip. Start normal saline at 50 mL an hour. Maintain prednisone. Add proton pump inhibitor. Continue to monitor for renal recovery.
[2021-02-16] MEDS: PANTOPRAZOLE 40 MG TABLET PO SCH (12:21)
--- NOTE | 2021-02-16 15:42 | P.PCN ---
Date of Procedure: 02/16/21 Preoperative Diagnosis: renal failure, ROCKY Procedure(s) Performed: u/s guide right renal biopsy Anesthesia: local Estimated Blood Loss (ml): 10 Pathology: other (to cyto) Condition: stable Disposition: no change Operative Findings: 5 passes lower pole cortex, 2 partial cores, 1 normal core for immuno fluorescence
--- NOTE | 2021-02-16 15:50 | US ---
EXAMINATION TYPE: US biopsy renal DATE OF EXAM: 02/16/2021 HISTORY: Acute kidney injury or renal failure FINDINGS: Maximal barrier technique was utilized. Hand hygiene achieved with soap and water and alco hol-based hand rub. The skin overlying a suitable path to the patient's right kidney in retroperitone um was localized with ultrasound and the overlying skin prepped and draped. Ultrasound was utilized with sterile technique. Lidocaine was used for local anesthesia. A skin albino was made with a scalpe l. An 18-gauge needle was advanced under direct ultrasound guidance and core specimen obtained of th e lower pole of the right renal cortex, 2 passes achieved only fat, 2 passes achieved partial cores, final pass was achieved for immunofluorescence. Specimen submitted to Pathology. Following the proc edure, hemostasis achieved and the patient is discharged in stable condition without immediate compli cation. IMPRESSION:STATUS POST ULTRASOUND GUIDED CORE BIOPSY RIGHT RENAL CORTEX, PATHOLOGY IS PENDING. THIS PROCEDURE IS PERFORMED BY THE UNDERSIGNED.
[2021-02-16] MEDS: ONDANSETRON 4 MG/2 ML VIAL IVP PRN (15:56)
--- NOTE | 2021-02-17 02:12 | P.PN ---
Subjective Progress Note Date: 02/16/21 Principal diagnosis: ROCKY Mr. Copeland is a 75-year-old male with a past medical history of atrial fibrillation, gout, nephrolithiasis, diverticulitis coming to the hospital with a chief complaint of abnormal labs. Patient was called by his compensator worker because of abnormal labs and was recommended to go to the emergency department for high phosphorus levels. At the time of admission patient had acute kidney injury with elevated creatinine of 6.9. Patient is being followed by nephrology. On 02/14/2021 patient was seen and examined at the bedside. He is sitting comfortably in bed appears to be no acute distress. Patient states that Dr. Dennis has spoken to him earlier and would probably start him on dialysis today. Patient was very disturbed, anxious to get the procedure done. Patient denied having any chest pain or palpitations. No cough or difficulty breathing. No fevers chills or rigors. He mentions that his urine output has been stable. P atient denies having any weakness of his extremities. On reviewing his vitals have been stable with blood pressure of 129 x 81, heart rate 60, respiratory 18, temperature 98, saturating at 97% on room air. Labs reviewed and BUN and creatinine still elevated. On 02/15/2021 patient was seen and examined at the bedside. Patient is sitting up in the bed, he states that he feels slightly dizzy and nauseous this morning. Patient denies having any chest pain or palpitations. No cough or difficulty breathing. No abdominal pain vomiting or diarrhea. Patient has been started on hemodialysis yesterday. On reviewing the patient's vitals from this morning temperature of 97.5, heart rate 80, respiratory rate 16, blood pressure 133/70 saturating 98% on room air. On reviewing the patient's labs sodium 131, potassium 3.6, chloride 91, bicarb 30, BUN 78, creatinine 3.50. On 02/16/2021 patient seen and examined at the bedside. Patient is scheduled for a kidney biopsy later today. Patient is sitting up in the bed with drip at the bedside. He states he is nauseous but did not throw up. He feels like he might throw up. Patient denied having any chest pain or palpitations. No cough or difficulty breathing. On reviewing the patient's vitals temperature of 98, heart rate 90s 200s, respiratory rate 16, blood pressure 113/67 saturating at 100% on room air. Patient's labs reviewed last labs are from day before when he had the dialysis. Patient's medications have been reviewed Objective - Vital Signs Vital signs: Vital Signs Temp 98 F 02/16/21 08:00 Pulse 67 02/16/21 08:00 Resp 16 02/16/21 08:00 BP 123/66 02/16/21 08:00 Pulse Ox 99 02/16/21 08:00 Intake & Output 02/15/21 02/16/21 02/16/21 18:59 06:59 18:59 Output Total 500 0 Balance -500 0 Weight 61.7 kg Output: Urine 0 Emesis 500 Hemodialysis 0 Other: # Voids 1 0 - Exam PHYSICAL EXAMINATION: GENERAL: The patient is alert and oriented x3, not in any acute distress. HEENT: Pupils are round and equally reacting to light. EOMI. No scleral icterus. No conjunctival pallor. CARDIOVASCULAR: S1 and S2 present. No murmurs, rubs, or gallops. PULMONARY: Chest is clear to auscultation, no wheezing or crackles. ABDOMEN: Soft, nontender, nondistended, normoactive bowel sounds. No palpable organomegaly. MUSCULOSKELETAL: No joint swelling or deformity. EXTREMITIES: No cyanosis, clubbing, or pedal edema. Dialysis cathter in right groin NEUROLOGICAL: Gross neurological examination did not reveal any focal deficits. SKIN: No rashes. - Labs CBC & Chem 7: 02/12/21 21:24 02/15/21 10:24 Labs: Microbiology - Last 24 Hours (Table) 02/12/21 04:24 Urine Culture - Final Urine,Voided Enterococcus faecalis Assessment and Plan Assessment: Assessment and plan -Renal failure acute on chronic: Secondary to possible nephric syndrome patient has P-ANCA antibody positive. -Anion gap and non-anion gap metabolic acidosis secondary to renal failure, patient on sodium bicarbonate -Hyperkalemia secondary to renal failure -Hyperphosphatasemia Hyponatremia: Secondary to renal failure. DVT prophylaxis: Subcutaneous heparin PLAN: Scheduled for renal biopsy this afternoon Patient has been started on hemodialysis on 02/15/2021, received 2 session. On reviewing the labs, showed significant improvement in BUN and creatinine. He has nausea this morning - symptomatic management Patient will be continued on the current medication regimen. Nephrology closely following the patient Further recommendations to follow depending on the progress of the patient
[2021-02-17] MEDS: SODIUM CHLORIDE 0.9% 1,000 ML IV SCH ×2 (03:29→23:05)
[2021-02-17] MEDS: PANTOPRAZOLE 40 MG TABLET PO SCH (06:44)
[2021-02-17] MEDS: predniSONE 20 MG TAB PO SCH (08:11)
[2021-02-17] MEDS: CYANOCOBALAMIN 500 MCG TAB PO SCH (08:11)
[2021-02-17] MEDS: CHOLECALCIFEROL 25 MCG (1000 IU) TABLET PO SCH (08:11)
[2021-02-17] MEDS: HEPARIN SODIUM,PORCINE/PF 5,000 UNIT/0.5 ML SYRINGE SQ SCH ×2 (08:11→20:11)
[2021-02-17 08:34] LABS: Albumin 2.3 g/dL (3.5-5.0); Magnesium 2.2 mg/dL (1.6-2.3); Potassium 4.1 mmol/L (3.5-5.1); Total Bilirubin 0.5 mg/dL (0.2-1.3); Total Protein 4.8 g/dL (6.3-8.2)
--- NOTE | 2021-02-17 09:24 | P.PN ---
Subjective Patient is seen in follow-up for acute kidney injury on chronic kidney disease. High suspicion for vasculitis with positive serologies. Patient had canceled it kidney biopsy outpatient and was sent to the hospital due to hyperkalemia and worsening renal function. Kidney biopsy done February 16. He is maintained on prednisone which was started February 15. Denies chest pain or shortness of breath. No gross hematuria. Tolerating dialysis well. Vital signs are stable. General: The patient appeared well nourished and normally developed. HEENT: Head exam is unremarkable. LUNGS: Breath sounds decreased. HEART: Rate and Rhythm are regular. ABDOMEN: Soft, no distention. EXTREMITITES: No edema. Objective - Vital Signs Vital signs: Vital Signs Temp 98.1 F 02/17/21 03:31 Pulse 71 02/17/21 08:00 Resp 16 02/17/21 08:00 BP 159/82 02/17/21 08:00 Pulse Ox 98 02/17/21 03:31 Intake & Output 02/16/21 02/17/21 02/17/21 18:59 06:59 18:59 Weight 62.9 kg Other: # Voids 0 2 - Labs CBC & Chem 7: 02/12/21 21:24 02/17/21 06:56 Labs: Abnormal Lab Results - Last 24 Hours (Table) 02/17/21 Range/Units 06:56 Sodium 136 L (137-145) mmol/L Chloride 97 L (98-107) mmol/L Carbon Dioxide 32 H (22-30) mmol/L BUN 71 H (9-20) mg/dL Creatinine 3.72 H (0.66-1.25) mg/dL Calcium 8.0 L (8.4-10.2) mg/dL Alkaline Phosphatase 149 H (38-126) U/L Total Protein 4.8 L (6.3-8.2) g/dL Albumin 2.3 L (3.5-5.0) g/dL Assessment and Plan Plan: Assessment: 1. Acute kidney injury secondary to ATN from hypovolemia as well as acute vasculitis. Started on prednisone February 15. S/p kidney biopsy February 16. Results pending. Started on hemodialysis due to uremia on February 14. 2. Hyperkalemia secondary to acute kidney injury. Improved postdialysis. 3. Metabolic acidosis secondary to acute kidney injury. Improved postdialysis and bicarb drip. Plan: Currently seen while undergoing hemodialysis. Next treatment tomorrow. Kidney biopsy results pending. Maintain normal saline. Maintain prednisone. Maintain proton pump inhibitor. Continue to monitor for renal recovery. Strict I's and O's. Discussed with the nurse. Outpatient dialysis being set up. Will need permacath prior to discharge.
--- NOTE | 2021-02-17 15:32 | XR ---
EXAMINATION TYPE: XR chest 1V portable DATE OF EXAM: 02/17/2021 CLINICAL HISTORY: Shortness of breath TECHNIQUE: Single AP portable frontal upright view of the chest is obtained. COMPARISON: Chest x-ray January 15, 2021 FINDINGS: There is no suspicious new focal air space opacity, pleural effusion, or pneumothorax seen . The cardiac silhouette size is stable and within normal limits. The osseous structures are intac t. Overlying EKG leads currently. IMPRESSION: No acute process.
--- NOTE | 2021-02-17 15:55 | P.PN ---
Subjective Progress Note Date: 02/17/21 ROCKY Mr. Copeland is a 75-year-old male with a past medical history of atrial fibrillation, gout, nephrolithiasis, diverticulitis coming to the hospital with a chief complaint of abnormal labs. Patient was called by his coffee machine technician because of abnormal labs and was recommended to go to the emergency department for high phosphorus levels. At the time of admission patient had acute kidney injury with elevated creatinine of 6.9. Patient is being followed by nephrology. On 02/14/2021 patient was seen and examined at the bedside. He is sitting comfortably in bed appears to be no acute distress. Patient states that Dr. Dennis has spoken to him earlier and would probably start him on dialysis today. Patient was very disturbed, anxious to get the procedure done. Patient denied having any chest pain or palpitations. No cough or difficulty breathing. No fevers chills or rigors. He mentions that his urine output has been stable. Patient denies having any weakness of his extremities. On reviewing his vitals have been stable with blood pressure of 129 x 81, heart rate 60, respiratory 18, temperature 98, saturating at 97% on room air. Labs reviewed and BUN and creatinine still elevated. On 02/15/2021 patient was seen and examined at the bedside. Patient is sitting up in the bed, he states that he feels slightly dizzy and nauseous this morning. Patient denies having any chest pain or palpitations. No cough or difficulty breathing. No abdominal pain vomiting or diarrhea. Patient has been started on hemodialysis yesterday. On reviewing the patient's vitals from this morning temperature of 97.5, heart rate 80, respiratory rate 16, blood pressure 133/70 saturating 98% on room air. On reviewing the patient's labs sodium 131, potassium 3.6, chloride 91, bicarb 30, BUN 78, creatinine 3.50. On 02/16/2021 patient seen and examined at the bedside. Patient is scheduled for a kidney biopsy later today. Patient is sitting up in the bed with drip at the bedside. He states he is nauseous but did not throw up. He feels like he might throw up. Patient denied having any chest pain or palpitations. No cough or difficulty breathing. On reviewing the patient's vitals temperature of 98, heart rate 90s 200s, respiratory rate 16, blood pressure 113/67 saturating at 100% on room air. Patient's labs reviewed last labs are from day before when he had the dialysis. 02/17/2021 Patient is seen and evaluated in follow-up status post right renal biopsy and nephrology following closely. Patient was started on hemodialysis with a temporary dialysis catheter placement. Awaiting for biopsy results. Patient denies any further episodes of nausea and vomiting and is tolerating diet. Encouraged oral intake and increase activity as tolerated. Patient had positive serologies of P-ANCA antibodies and will add rheumatoid factor, SARA, RF, sed rate, CRP, HIV, chest x-ray and EKG. Patient denies any shortness of breath or chest pains at this time. Will repeat a.m. labs and continue to monitor closely. Patient also continues on daily high-dose prednisone and will cont inue. Review of systems: Constitutional: No reports of fatigue, fever, or chills Cardiovascular: No reports of chest pain or palpitations Respiratory: No reports of shortness of breath or cough GI: No reports of nausea, vomiting, or diarrhea : No reports of dysuria or retention Neurovascular: No reports of weakness or numbness All medications have been reviewed Active Medications Cholecalciferol (Cholecalciferol 25 Mcg (1000 Iu) Tablet) 50 mcg PO DAILY [facility] Last Admin: 02/17/21 08:11 Dose: 50 mcg Documented by: Cyanocobalamin (Cyanocobalamin 500 Mcg Tab) 500 mcg PO DAILY [facility] Last Admin: 02/17/21 08:11 Dose: 500 mcg Documented by: Heparin Sodium (Porcine) (Heparin Sodium,Porcine/Pf 5,000 Unit/0.5 Ml Syringe) 5,000 unit SQ Q12HR [facility] Last Admin: 02/17/21 08:11 Dose: Not Given Documented by: Sodium Chloride (Saline 0.9%) 1,000 mls @ 50 mls/hr IV .Q20H [facility] Last Admin: 02/17/21 03:29 Dose: 50 mls/hr Documented by: Naloxone HCl (Naloxone 0.4 Mg/Ml 1 Ml Vial) 0.2 mg IV Q2M PRN PRN Reason: Opioid Reversal Ondansetron HCl (Ondansetron 4 Mg/2 Ml Vial) 4 mg IVP Q6HR PRN PRN Reason: Nausea And Vomiting Last Admin: 02/16/21 15:56 Dose: 4 mg Documented by: Pantoprazole Sodium (Pantoprazole 40 Mg Tablet) 40 mg PO [id number] [facility] Last Admin: 02/17/21 06:44 Dose: 40 mg Documented by: Prednisone (Prednisone 20 Mg Tab) 60 mg PO DAILY [facility] Last Admin: 02/17/21 08:11 Dose: 60 mg Documented by: Physical exam: GENERAL: The patient is alert and oriented x3, not in any acute distress. HEENT: Pupils are round and equally reacting to light. EOMI. No scleral icterus. No conjunctival pallor. CARDIOVASCULAR: S1 and S2 present. No murmurs, rubs, or gallops. PULMONARY: Diminished breath sounds bilaterally with no wheezing or crackles. ABDOMEN: Soft, nontender, nondistended, normoactive bowel sounds. No palpable organomegaly. MUSCULOSKELETAL: No joint swelling or deformity. EXTREMITIES: No cyanosis, clubbing, or pedal edema. Dialysis cathter in right groin NEUROLOGICAL: Gross neurological examination did not reveal any focal deficits. SKIN: No rashes. Assessment: -Renal failure acute on chronic: Secondary to possible nephrotic syndrome patient has P-ANCA antibody positive. -Hypovolemia -Acute Vasculitis -Anion gap and non-anion gap metabolic acidosis secondary to renal failure -Hyperkalemia secondary to renal failure -Hyperphosphatasemia -Hyponatremia: Secondary to renal failure. -DVT prophylaxis: Subcutaneous heparin -Full code PLAN: Recommend to continue with current medications and management with nephrology following closely. Patient is status post right renal biopsy and results are pending at this time. Patient did receive 2 sessions of hemodialysis that was started on 02/15 with a temporary dialysis cath in the right groin. Kidney functions improving and will continue with daily labs. Patient denies any further nausea or vomiting and will continue Zofran as needed. Encouraged oral intake. Encouraged increase activity as tolerated. Patient did have P-ANCA antibody positive and will add a and A, sed rate, HIV, uric acid, rheumatoid factor to complete the workup. Chest x-ray and EKG ordered and pending at this time. Prognosis is guarded. Further recommendations to follow based on the clinical course of the patient. Objective - Vital Signs Vital signs: Vital Signs Temp 98.1 F 02/17/21 03:31 Pulse 71 02/17/21 08:00 Resp 16 02/17/21 08:00 BP 159/82 02/17/21 08:00 Pulse Ox 98 02/17/21 03:31 Intake & Output 02/16/21 02/17/21 02/17/21 18:59 06:59 18:59 Weight 62.9 kg Other: # Voids 0 2 - Labs CBC & Chem 7: 02/12/21 21:24 02/17/21 06:56 Labs: Abnormal Lab Results - Last 24 Hours (Table) 02/17/21 Range/Units 06:56 Sodium 136 L (137-145) mmol/L Chloride 97 L (98-107) mmol/L Carbon Dioxide 32 H (22-30) mmol/L BUN 71 H (9-20) mg/dL Creatinine 3.72 H (0.66-1.25) mg/dL Calcium 8.0 L (8.4-10.2) mg/dL Alkaline Phosphatase 149 H (38-126) U/L Total Protein 4.8 L (6.3-8.2) g/dL Albumin 2.3 L (3.5-5.0) g/dL
[2021-02-18] MEDS: PANTOPRAZOLE 40 MG TABLET PO SCH (06:54)
[2021-02-18 07:37] LABS: Anisocytosis Slight; MCH 29.9 pg (25.0-35.0); MCHC 31.7 g/dL (31.0-37.0); MCV 94.2 fL (80.0-100.0); Mean Platelet Volume 8.9; RBC 2.11 m/uL (4.30-5.90); RDW 16.1 % (11.5-15.5); WBC 11.9 k/uL (3.8-10.6)
[2021-02-18 07:50] LABS: African American GFR (CKD) 19 (>60 ml/min/1.73 sqM); Anion Gap 2 mmol/L; Blood Urea Nitrogen 63 mg/dL (9-20); Calcium 7.8 mg/dL (8.4-10.2); Carbon Dioxide 32 mmol/L (22-30); Chloride 99 mmol/L (98-107); Glucose 102 mg/dL (74-99); Non-African American GFR(CKD) 17 (>60 ml/min/1.73 sqM); Potassium 4.4 mmol/L (3.5-5.1); Sodium 133 mmol/L (137-145); Uric Acid 4.2 mg/dL (3.5-8.5)
[2021-02-18 07:59] LABS: HCT 19.9 % (39.0-53.0); HGB 6.3 gm/dL (13.0-17.5)
[2021-02-18 08:23] LABS: Platelet Count 161 k/uL (150-450)
[2021-02-18 08:26] LABS: Lymphocytes # (M) 1.19 k/uL (1.0-4.8); Monocytes # (M) 1.07 k/uL (0-1.0); Neutrophils # (M) 9.64 k/uL (1.3-7.7); Neutrophils % (M) 81 %; Nucleated Red Blood Cells 0 /100 WBC (0-0); Total Cells Counted 100
[2021-02-18] MEDS: predniSONE 20 MG TAB PO SCH (08:38)
[2021-02-18] MEDS: CYANOCOBALAMIN 500 MCG TAB PO SCH (08:39)
[2021-02-18] MEDS: HEPARIN SODIUM,PORCINE/PF 5,000 UNIT/0.5 ML SYRINGE SQ SCH ×2 (08:39→19:42)
[2021-02-18] MEDS: CHOLECALCIFEROL 25 MCG (1000 IU) TABLET PO SCH (08:39)
[2021-02-18 08:55] LABS: Erythrocyte Sedimentation Rate 7 mm/hr (0-15)
--- NOTE | 2021-02-18 09:35 | P.PN ---
Subjective Patient is seen in follow-up for acute kidney injury on chronic kidney disease. High suspicion for vasculitis with positive serologies. Patient had canceled it kidney biopsy outpatient and was sent to the hospital due to hyperkalemia and worsening renal function. Kidney biopsy done February 16. He is maintained on prednisone which was started February 15. Denies chest pain or shortness of breath. No gross hematuria. Hemoglobin 6.3 today. Urine output 500 mL in the last 24 hours per the nurse. Vital signs are stable. General: The patient appeared well nourished and normally developed. HEENT: Head exam is unremarkable. LUNGS: Breath sounds decreased. HEART: Rate and Rhythm are regular. ABDOMEN: Soft, no distention. EXTREMITITES: No edema. Objective - Vital Signs Vital signs: Vital Signs Temp 97.8 F 02/18/21 04:00 Pulse 65 02/18/21 08:00 Resp 16 02/18/21 08:00 BP 95/55 02/18/21 08:00 Pulse Ox 100 02/18/21 08:00 Intake & Output 02/17/21 02/18/21 02/18/21 18:59 06:59 18:59 Intake Total 200 240 Output Total 400 Balance 200 -400 240 Weight 62.9 kg 66.5 kg Intake: Intake, IV Titration 200 Amount Sodium Chloride 0.9% 1, 200 000 ml @ 50 mls/hr IV . Q20H [facility] Rx#:[id number] Oral 240 Output: Urine 400 Other: Voiding Method Urinal - Labs CBC & Chem 7: 02/18/21 06:56 02/18/21 06:56 Labs: Abnormal Lab Results - Last 24 Hours (Table) 02/16/21 02/18/21 02/18/21 Range/Units 11:37 06:56 06:56 WBC 11.9 H (3.8-10.6) k/uL RBC 2.11 L (4.30-5.90) m/uL Hgb 6.3 L* D (13.0-17.5) gm/dL Hct 19.9 L* (39.0-53.0) % RDW 16.1 H (11.5-15.5) % Neutrophils # (Manual) 9.64 H (1.3-7.7) k/uL Monocytes # (Manual) 1.07 H (0-1.0) k/uL Sodium 133 L (137-145) mmol/L Carbon Dioxide 32 H (22-30) mmol/L BUN 63 H (9-20) mg/dL Creatinine 3.45 H (0.66-1.25) mg/dL Glucose 102 H (74-99) mg/dL Calcium 7.8 L (8.4-10.2) mg/dL Crossmatch See Detail Assessment and Plan Plan: Assessment: 1. Acute kidney injury secondary to ATN from hypovolemia as well as acute vasculitis. Started on prednisone February 15. S/p kidney biopsy February 16. Results pending. Started on hemodialysis due to uremia on February 14. 2. Hyperkalemia secondary to acute kidney injury. Improved postdialysis. 3. Metabolic acidosis secondary to acute kidney injury. Improved postdialysis and bicarb drip. 4. Acute blood loss anemia with component of chronic kidney disease. No active bleeding. Plan: Hemodialysis today. He will be maintained on a Tuesday [facility]. Kidney biopsy results pending. Maintain normal saline. Maintain prednisone. Maintain proton pump inhibitor. Continue to monitor for renal recovery. Strict I's and O's. Discussed with the nurse. Outpatient dialysis being set up. Will need permacath prior to discharge. Scheduled to receive a unit of blood today. Add Aranesp. Follow-up anti-GBM.
[2021-02-18 09:42] LABS: C Reactive Protein 1.3 mg/dL (<1.0)
[2021-02-18] MEDS ORDERED: DARBEPOETIN ALFA 40 MCG/0.4 ML SYRINGE SQ SCH (10:00)
[2021-02-18 16:57] LABS: Rheumatoid Factor, Qnt <10 IU/mL (0-15)
[2021-02-18] MEDS: SODIUM CHLORIDE 0.9% 1,000 ML IV SCH (19:41)
--- NOTE | 2021-02-19 00:53 | P.PN ---
Subjective Progress Note Date: 02/18/21 ROCKY Mr. Copeland is a 75-year-old male with a past medical history of atrial fibrillation, gout, nephrolithiasis, diverticulitis coming to the hospital with a chief complaint of abnormal labs. Patient was called by his is technician because of abnormal labs and was recommended to go to the emergency department for high phosphorus levels. At the time of admission patient had acute kidney injury with elevated creatinine of 6.9. Patient is being followed by nephrology. On 02/14/2021 patient was seen and examined at the bedside. He is sitting comfortably in bed appears to be no acute distress. Patient states that Dr. Dennis has spoken to him earlier and would probably start him on dialysis today. Patient was very disturbed, anxious to get the procedure done. Patient denied having any chest pain or palpitations. No cough or difficulty breathing. No fevers chills or rigors. He mentions that his urine output has been stable. Patient denies having any weakness of his extremities. On reviewing his vitals have been stable with blood pressure of 129 x 81, heart rate 60, respiratory 18, temperature 98, saturating at 97% on room air. Labs reviewed and BUN and creatinine still elevated. On 02/15/2021 patient was seen and examined at the bedside. Patient is sitting up in the bed, he states that he feels slightly dizzy and nauseous this morning. Patient denies having any chest pain or palpitations. No cough or difficulty breathing. No abdominal pain vomiting or diarrhea. Patient has been started on hemodialysis yesterday. On reviewing the patient's vitals from this morning temperature of 97.5, heart rate 80, respiratory rate 16, blood pressure 133/70 saturating 98% on room air. On reviewing the patient's labs sodium 131, potassium 3.6, chloride 91, bicarb 30, BUN 78, creatinine 3.50. On 02/16/2021 patient seen and examined at the bedside. Patient is scheduled for a kidney biopsy later today. Patient is sitting up in the bed with drip at the bedside. He states he is nauseous but did not throw up. He feels like he might throw up. Patient denied having any chest pain or palpitations. No cough or difficulty breathing. On reviewing the patient's vitals temperature of 98, heart rate 90s 200s, respiratory rate 16, blood pressure 113/67 saturating at 100% on room air. Patient's labs reviewed last labs are from day before when he had the dialysis. 02/17/2021 Patient is seen and evaluated in follow-up status post right renal biopsy and nephrology following closely. Patient was started on hemodialysis with a temporary dialysis catheter placement. Awaiting for biopsy results. Patient denies any further episodes of nausea and vomiting and is tolerating diet. Encouraged oral intake and increase activity as tolerated. Patient had positive serologies of P-ANCA antibodies and will add rheumatoid factor, SARA, RF, sed rate, CRP, HIV, chest x-ray and EKG. Patient denies any shortness of breath or chest pains at this time. Will repeat a.m. labs and continue to monitor closely. Patient also continues on daily high-dose prednisone and will cont inue. 02/18/2021 Patient is evaluated this morning and being closely monitored. Nephrology following and awaiting renal biopsy. Patient awaiting permacath placement and case management following and arranging for outpatient dialysis. Patient hemoglobin found to be 6.3 today and will give a unit during dialysis today and repeat am labs. Kidney functions improving. Chest xray done shows no acute p rocess. SARA was negative and RF was less than 10. CRP 1.3. Patient denies any chest pain or shortness of breath. Patient continues on oral prednisone 60 mg daily. Labs: WBC is 11.9, hgb is 6.3, platelets are 161, sodium is 133, potassium is 4.4, bun is 63, creatinine is 3.45 Review of systems: Constitutional: No reports of fatigue, fever, or chills Cardiovascular: No reports of chest pain or palpitations Respiratory: No reports of shortness of breath or cough GI: No reports of nausea, vomiting, or diarrhea : No reports of dysuria or retention Neurovascular: No reports of weakness or numbness All medications have been reviewed Active Medications Cholecalciferol (Cholecalciferol 25 Mcg (1000 Iu) Tablet) 50 mcg PO DAILY [facility] Last Admin: 02/18/21 08:39 Dose: 50 mcg Documented by: Cyanocobalamin (Cyanocobalamin 500 Mcg Tab) 500 mcg PO DAILY [facility] Last Admin: 02/18/21 08:39 Dose: 500 mcg Documented by: Darbepoetin Manohar (Darbepoetin Manohar 40 Mcg/0.4 Ml Syringe) 40 mcg SQ Q7D [facility] Last Admin: 02/18/21 14:17 Dose: 40 mcg Documented by: Heparin Sodium (Porcine) (Heparin Sodium,Porcine/Pf 5,000 Unit/0.5 Ml Syringe) 5,000 unit SQ Q12HR [facility] Last Admin: 02/18/21 19:42 Dose: Not Given Documented by: Sodium Chloride (Saline 0.9%) 1,000 mls @ 50 mls/hr IV .Q20H [facility] Last Admin: 02/18/21 19:41 Dose: 50 mls/hr Documented by: Naloxone HCl (Naloxone 0.4 Mg/Ml 1 Ml Vial) 0.2 mg IV Q2M PRN PRN Reason: Opioid Reversal Ondansetron HCl (Ondansetron 4 Mg/2 Ml Vial) 4 mg IVP Q6HR PRN PRN Reason: Nausea And Vomiting Last Admin: 02/16/21 15:56 Dose: 4 mg Documented by: Pantoprazole Sodium (Pantoprazole 40 Mg Tablet) 40 mg PO AC-BRKFST [facility] Last Admin: 02/18/21 06:54 Dose: 40 mg Documented by: Prednisone (Prednisone 20 Mg Tab) 60 mg PO DAILY [facility] Last Admin: 02/18/21 08:38 Dose: 60 mg Documented by: Physical exam: GENERAL: The patient is alert and oriented x3, well developed, well nourished. Temp is 97.8, pulse is 61, resp are 16, blood pressure is 100/61, pulse ox is 95 on room air. HEENT: Pupils are round and equally reacting to light. EOMI. No scleral icterus. No conjunctival pallor. CARDIOVASCULAR: S1 and S2 muffled PULMONARY: Diminished breath sounds bilaterally with no wheezing or crackles. ABDOMEN: Soft, nontender, nondistended, normoactive bowel sounds. No palpable organomegaly. MUSCULOSKELETAL: No joint swelling or deformity. EXTREMITIES: No cyanosis, clubbing, or pedal edema. Temporary Dialysis catheter in right groin currently NEUROLOGICAL: Gross neurological examination did not reveal any focal deficits. SKIN: No rashes. Assessment: -Renal failure acute on chronic: Secondary to possible nephrotic syndrome patient has P-ANCA antibody positive. -Hypovolemia -acute blood loss anemia possibly secondary to chronic kidney disease -Acute Vasculitis -Anion gap and non-anion gap metabolic acidosis secondary to renal failure -Hyperkalemia secondary to renal failure -Hyperphosphatasemia -Hyponatremia: Secondary to renal failure. -DVT prophylaxis: Subcutaneous heparin -Full code PLAN: Recommend to continue with current medications and management with nephrology following closely. Patient is status post right renal biopsy and results are pending at this time. Patient receiving hemodialysis that was started on 02/15 with a temporary dialysis cath in the right groin. Plan is for permacath placement and arranging for outpatient dialysis. Kidney functions improving and will continue with daily labs. Patient denies any further nausea or vomiting and will continue Zofran as needed. Encouraged oral intake. Encouraged increase activity as tolerated. Patient did have P-ANCA antibody positive and SARA is negative and RF less than 10. Uric acid within normal limits. hemoglobin was found to be 6.3 and ordered 1 unit of PRBC to be given with dialysis. No active bleeding noted. Aranesp added. Prognosis is guarded. Further recommendations to follow based on the clinical course of the patient. Objective - Vital Signs Vital signs: Vital Signs Temp 97.8 F 02/18/21 04:00 Pulse 61 02/18/21 04:00 Resp 16 02/18/21 04:00 BP 100/61 02/18/21 04:00 Pulse Ox 95 02/18/21 04:00 Intake & Output 02/17/21 02/18/21 02/18/21 18:59 06:59 18:59 Intake Total 200 Output Total 400 Balance 200 -400 Weight 62.9 kg 66.5 kg Intake: Intake, IV Titration 200 Amount Sodium Chloride 0.9% 1, 200 000 ml @ 50 mls/hr IV . Q20H [facility] Rx#:[id number] Output: Urine 400 Other: Voiding Method Urinal - Labs CBC & Chem 7: 02/18/21 06:56 02/18/21 06:56 Labs: Abnormal Lab Results - Last 24 Hours (Table) 02/17/21 02/18/21 02/18/21 Range/Units 06:56 06:56 06:56 WBC 11.9 H (3.8-10.6) k/uL RBC 2.11 L (4.30-5.90) m/uL Hgb 6.3 L* D (13.0-17.5) gm/dL Hct 19.9 L* (39.0-53.0) % RDW 16.1 H (11.5-15.5) % Sodium 136 L 133 L (137-145) mmol/L Chloride 97 L (98-107) mmol/L Carbon Dioxide 32 H 32 H (22-30) mmol/L BUN 71 H 63 H (9-20) mg/dL Creatinine 3.72 H 3.45 H (0.66-1.25) mg/dL Glucose 102 H (74-99) mg/dL Calcium 8.0 L 7.8 L (8.4-10.2) mg/dL Alkaline Phosphatase 149 H (38-126) U/L Total Protein 4.8 L (6.3-8.2) g/dL Albumin 2.3 L (3.5-5.0) g/dL
[2021-02-19] MEDS: PANTOPRAZOLE 40 MG TABLET PO SCH (06:15)
[2021-02-19] MEDS: HEPARIN SODIUM,PORCINE/PF 5,000 UNIT/0.5 ML SYRINGE SQ SCH ×2 (08:49→20:00)
[2021-02-19] MEDS: CHOLECALCIFEROL 25 MCG (1000 IU) TABLET PO SCH (08:49)
[2021-02-19] MEDS: predniSONE 20 MG TAB PO SCH (08:49)
[2021-02-19] MEDS: CYANOCOBALAMIN 500 MCG TAB PO SCH (08:49)
[2021-02-19 09:08] LABS: Anisocytosis Slight; Basophils % (A) 0 %; Eosinophils % (A) 0 %; HCT 24.3 % (39.0-53.0); HGB 7.6 gm/dL (13.0-17.5); Hypochromasia Slight; Lymphocytes # (A) 1.4 k/uL (1.0-4.8); Lymphocytes % (A) 10 %; MCH 28.8 pg (25.0-35.0); MCHC 31.1 g/dL (31.0-37.0); MCV 92.6 fL (80.0-100.0); Mean Platelet Volume 8.6; Monocytes # (A) 0.8 k/uL (0-1.0); Monocytes % (A) 5 %; Neutrophils # (A) 12.4 k/uL (1.3-7.7); Neutrophils % (A) 84 %; Platelet Count 157 k/uL (150-450); RBC 2.62 m/uL (4.30-5.90); RDW 17.9 % (11.5-15.5); WBC 14.8 k/uL (3.8-10.6)
--- NOTE | 2021-02-19 09:08 | P.PN ---
Subjective Patient is seen in follow-up for acute kidney injury on chronic kidney disease. High suspicion for vasculitis with positive serologies. Patient had canceled it kidney biopsy outpatient and was sent to the hospital due to hyperkalemia and worsening renal function. Kidney biopsy done February 16. He is maintained on prednisone which was started February 15. Denies chest pain or shortness of breath. No gross hematuria. Hemoglobin 6.3 yesterday and received a unit of blood. Urine output 400 mL in the last 24 hours per the nurse. Vital signs are stable. General: The patient appeared well nourished and normally developed. HEENT: Head exam is unremarkable. LUNGS: Breath sounds decreased. HEART: Rate and Rhythm are regular. ABDOMEN: Soft, no distention. EXTREMITITES: No edema. Objective - Vital Signs Vital signs: Vital Signs Temp 99 F 02/19/21 08:00 Pulse 56 L 02/19/21 08:00 Resp 16 02/19/21 08:00 BP 128/65 02/19/21 08:00 Pulse Ox 100 02/19/21 08:00 Intake & Output 02/18/21 02/19/21 02/19/21 18:59 06:59 18:59 Intake Total 1077 Output Total 0 250 Balance 1077 -250 Weight 72.7 kg Intake: Intake, IV Titration 200 Amount Sodium Chloride 0.9% 1, 200 000 ml @ 50 mls/hr IV . Q20H [facility] Rx#:[id number] Oral 598 Blood Product 279 Rc Pheresis 2 As3 Unit 279 [id number] Output: Urine 250 Hemodialysis 0 Other: Voiding Method Urinal Urinal # Voids 1 - Labs CBC & Chem 7: 02/18/21 06:56 02/18/21 06:56 Labs: Abnormal Lab Results - Last 24 Hours (Table) 02/16/21 02/18/21 Range/Units 11:37 06:56 C-Reactive Protein 1.3 H (<1.0) mg/dL Crossmatch See Detail Assessment and Plan Plan: Assessment: 1. Acute kidney injury secondary to ATN from hypovolemia as well as acute vasculitis. Started on prednisone February 15. S/p kidney biopsy February 16 - the sample was mostly fat and no cortex; therefore unable to diagnose vasculitis. Started on hemodialysis due to uremia on February 14. 2. Hyperkalemia secondary to acute kidney injury. Improved postdialysis. 3. Metabolic acidosis secondary to acute kidney injury. Improved postdialysis and bicarb drip. 4. Acute blood loss anemia with component of chronic kidney disease. No active bleeding. Status post blood transfusion yesterday. On Aranesp. Plan: Hemodialysis tomorrow. He will be maintained on a Tuesday schedule. Kidney biopsy will be repeated. I will give him DDAVP before the biopsy. Maintain normal saline. Maintain prednisone. Maintain proton pump inhibitor. Continue to monitor for renal recovery. Strict I's and O's. Discussed with the nurse. Outpatient dialysis being set up. Will need permacath prior to discharge. Follow-up anti-GBM.
[2021-02-19 09:15] LABS: INR 1.5 (<1.2); Prothrombin Time 15.5 sec (9.0-12.0)
[2021-02-19 09:28] LABS: Calcium 8.1 mg/dL (8.4-10.2); Potassium 3.9 mmol/L (3.5-5.1)
[2021-02-19] MEDS ORDERED: DESMOPRESSIN ACETATE 22 MCG in SODIUM CHLORIDE 0.9% 50 ML IVPB ONE (09:30)
[2021-02-19] MEDS ORDERED: PHYTONADIONE 2 MG in SODIUM CHLORIDE 0.9% 50 ML IVPB STA (11:15)
[2021-02-19] MEDS ORDERED: LIDOCAINE 1% INJ 10MG/ML (20 ML MDV) SQ ONE ×2 (14:57→15:01)
[2021-02-19] MEDS ORDERED: MIDAZOLAM 2 MG/2 ML VIAL IV ONE (14:57)
--- NOTE | 2021-02-19 16:10 | PCN ---
PROCEDURE NOTE PREOPERATIVE DIAGNOSIS: Acute on chronic renal failure. POSTOPERATIVE DIAGNOSIS: Acute on chronic renal failure. PROCEDURE: 1. Placement of a 23 cm dialysis catheter, right jugular approach, ultrasound-guided. 2. Removal of the dialysis catheter, right femoral approach. 3. Sedation time is 30 minutes. PROCEDURE DESCRIPTION: This patient was brought to the civil laboratory technician. Right side of the neck and chest was prepped and draped in usual sterile manner. Ultrasound-guided micropuncture was introduced into the right jugular vein. Micropuncture guidewire was passed. After that we placed a sheath on top of the guidewire. Then a tunnel was created. Through the tunnel we brought a 23 cm dialysis catheter. After that we passed a regular guidewire, which was parked in the inferior vena cava under fluoroscopic control. Dilator was advanced and then sheath was advanced on top of the guidewire. Through the sheath we introduced the dialysis catheter. Tip of catheter was in the superior vena cavoatrial junction. Sheath was removed. The catheter was flushed with heparin saline and hep-locked. Incision was closed with 3-0 nylon and Vicryl. Then the right groin were prepped and right femoral dialysis catheter was removed. Pressure was held. Patient tolerated the procedure well. MMODL / IJN: [id number] /
[2021-02-19 17:23] LABS: Anisocytosis Slight; Basophils % (A) 0 %; Eosinophils % (A) 0 %; HCT 24.5 % (39.0-53.0); HGB 7.7 gm/dL (13.0-17.5); Lymphocytes # (A) 0.7 k/uL (1.0-4.8); Lymphocytes % (A) 6 %; MCH 28.7 pg (25.0-35.0); MCHC 31.4 g/dL (31.0-37.0); MCV 91.2 fL (80.0-100.0); Mean Platelet Volume 9.9; Monocytes # (A) 0.2 k/uL (0-1.0); Monocytes % (A) 2 %; Neutrophils # (A) 10.5 k/uL (1.3-7.7); Neutrophils % (A) 91 %; Platelet Count 164 k/uL (150-450); RBC 2.68 m/uL (4.30-5.90); RDW 18.3 % (11.5-15.5); WBC 11.5 k/uL (3.8-10.6)
[2021-02-19] MEDS: SODIUM CHLORIDE 0.9% 1,000 ML IV SCH (20:00)
--- NOTE | 2021-02-19 23:08 | P.PN ---
Subjective Progress Note Date: 02/19/21 ROCKY Mr. Copeland is a 75-year-old male with a past medical history of atrial fibrillation, gout, nephrolithiasis, diverticulitis coming to the hospital with a chief complaint of abnormal labs. Patient was called by his pitting machine operator because of abnormal labs and was recommended to go to the emergency department for high phosphorus levels. At the time of admission patient had acute kidney injury with elevated creatinine of 6.9. Patient is being followed by nephrology. On 02/14/2021 patient was seen and examined at the bedside. He is sitting comfortably in bed appears to be no acute distress. Patient states that Dr. Dennis has spoken to him earlier and would probably start him on dialysis today. Patient was very disturbed, anxious to get the procedure done. Patient denied having any chest pain or palpitations. No cough or difficulty breathing. No fevers chills or rigors. He mentions that his urine output has been stable. Patient denies having any weakness of his extremities. On reviewing his vitals have been stable with blood pressure of 129 x 81, heart rate 60, respiratory 18, temperature 98, saturating at 97% on room air. Labs reviewed and BUN and creatinine still elevated. On 02/15/2021 patient was seen and examined at the bedside. Patient is sitting up in the bed, he states that he feels slightly dizzy and nauseous this morning. Patient denies having any chest pain or palpitations. No cough or difficulty breathing. No abdominal pain vomiting or diarrhea. Patient has been started on hemodialysis yesterday. On reviewing the patient's vitals from this morning temperature of 97.5, heart rate 80, respiratory rate 16, blood pressure 133/70 saturating 98% on room air. On reviewing the patient's labs sodium 131, potassium 3.6, chloride 91, bicarb 30, BUN 78, creatinine 3.50. On 02/16/2021 patient seen and examined at the bedside. Patient is scheduled for a kidney biopsy later today. Patient is sitting up in the bed with drip at the bedside. He states he is nauseous but did not throw up. He feels like he might throw up. Patient denied having any chest pain or palpitations. No cough or difficulty breathing. On reviewing the patient's vitals temperature of 98, heart rate 90s 200s, respiratory rate 16, blood pressure 113/67 saturating at 100% on room air. Patient's labs reviewed last labs are from day before when he had the dialysis. 02/17/2021 Patient is seen and evaluated in follow-up status post right renal biopsy and nephrology following closely. Patient was started on hemodialysis with a temporary dialysis catheter placement. Awaiting for biopsy results. Patient denies any further episodes of nausea and vomiting and is tolerating diet. Encouraged oral intake and increase activity as tolerated. Patient had positive serologies of P-ANCA antibodies and will add rheumatoid factor, SARA, RF, sed rate, CRP, HIV, chest x-ray and EKG. Patient denies any shortness of breath or chest pains at this time. Will repeat a.m. labs and continue to monitor closely. Patient also continues on daily high-dose prednisone and will cont inue. 02/18/2021 Patient is evaluated this morning and being closely monitored. Nephrology following and awaiting renal biopsy. Patient awaiting permacath placement and case management following and arranging for outpatient dialysis. Patient hemoglobin found to be 6.3 today and will give a unit during dialysis today and repeat am labs. Kidney functions improving. Chest xray done shows no acute p rocess. SARA was negative and RF was less than 10. CRP 1.3. Patient denies any chest pain or shortness of breath. Patient continues on oral prednisone 60 mg daily. 02/19/2021 Patient is seen in follow up this morning and is scheduled to undergo permanent catheter placement with Dr. Gomez today. Patient is currently NPO and denies any nausea or vomiting. Patient is anxious and nervous about upcoming procedure and also awaiting repeat renal biopsy. INR is 1.5 today and will give Vitamin K with close monitoring of INR. Patient is status post 1 Unit of Prbc. Hemoglobin is 7.6 this morning. Patient denies any shortness of breath or chest pain. No lower extremity swelling noted. Labs: WBC is 14.8, hgb is 7.6, platelets are 164 Review of systems: Constitutional: No reports of fatigue, fever, or chills, reports anxiety Cardiovascular: No reports of chest pain or palpitations Respiratory: No reports of shortness of breath or cough GI: No reports of nausea, vomiting, or diarrhea : No reports of dysuria or retention Neurovascular: No reports of weakness or numbness All medications have been reviewed Active Medications Cholecalciferol (Cholecalciferol 25 Mcg (1000 Iu) Tablet) 50 mcg PO DAILY [facility] Last Admin: 02/19/21 08:49 Dose: 50 mcg Documented by: Cyanocobalamin (Cyanocobalamin 500 Mcg Tab) 500 mcg PO DAILY [facility] Last Admin: 02/19/21 08:49 Dose: 500 mcg Documented by: Darbepoetin Manohar (Darbepoetin Manohar 40 Mcg/0.4 Ml Syringe) 40 mcg SQ Q7D [facility] Last Admin: 02/18/21 14:17 Dose: 40 mcg Documented by: Heparin Sodium (Porcine) (Heparin Sodium,Porcine/Pf 5,000 Unit/0.5 Ml Syringe) 5,000 unit SQ Q12HR [facility] Last Admin: 02/19/21 20:00 Dose: Not Given Documented by: Sodium Chloride (Saline 0.9%) 1,000 mls @ 50 mls/hr IV .Q20H [facility] Last Admin: 02/19/21 20:00 Dose: Not Given Documented by: Naloxone HCl (Naloxone 0.4 Mg/Ml 1 Ml Vial) 0.2 mg IV Q2M PRN PRN Reason: Opioid Reversal Ondansetron HCl (Ondansetron 4 Mg/2 Ml Vial) 4 mg IVP Q6HR PRN PRN Reason: Nausea And Vomiting Last Admin: 02/16/21 15:56 Dose: 4 mg Documented by: Pantoprazole Sodium (Pantoprazole 40 Mg Tablet) 40 mg PO AC-BRKFST [facility] Last Admin: 02/19/21 06:15 Dose: Not Given Documented by: Prednisone (Prednisone 20 Mg Tab) 60 mg PO DAILY [facility] Last Admin: 02/19/21 08:49 Dose: 60 mg Documented by: Physical exam: GENERAL: The patient is alert and oriented x3, well developed, well nourished. Temp is 99F, pulse is 56, resp are 16, blood pressure is 128/65, pulse ox is 100 on room air. HEENT: Pupils are round and equally reacting to light. EOMI. No scleral icterus. No conjunctival pallor. CARDIOVASCULAR: S1 and S2 muffled PULMONARY: Diminished breath sounds bilaterally with no wheezing or crackles. ABDOMEN: Soft, non-tender, non-distended, normoactive bowel sounds. No palpable organomegaly. MUSCULOSKELETAL: No joint swelling or deformity. EXTREMITIES: No cyanosis, clubbing, or pedal edema. Temporary Dialysis catheter in right groin currently NEUROLOGICAL: Gross neurological examination did not reveal any focal deficits. SKIN: No rashes. Assessment: -Renal failure acute on chronic: Secondary to possible nephrotic syndrome p atient has P-ANCA antibody positive. -Hypovolemia -acute blood loss anemia possibly secondary to chronic kidney disease -Acute Vasculitis -Anion gap and non-anion gap metabolic acidosis secondary to renal failure -Hyperkalemia secondary to renal failure -Hyperphosphatasemia -Hyponatremia: Secondary to renal failure. -DVT prophylaxis: Subcutaneous heparin -Full code PLAN: Recommend to continue with current medications and management with nephrology following closely. Patient is status post right renal biopsy and is being repeated as specimen was fat and non-diagnostic. Patient will be receiving hemodialysis catheter placement for the outpatient setting. Kidney functions improving and will continue with daily labs. Patient denies any further nausea or vomiting and will continue Zofran as needed. Encouraged oral intake. Encouraged increase activity as tolerated. Patient is status post 1 unit of PRBC and hemoglobin is 7.6 and recommend to continue to monitor closely and transfuse if less than 7. Prognosis is guarded. Further recommendations to follow based on the clinical course of the patient. Objective - Vital Signs Vital signs: Vital Signs Temp 99 F 02/19/21 08:00 Pulse 56 L 02/19/21 08:00 Resp 16 02/19/21 08:00 BP 128/65 02/19/21 08:00 Pulse Ox 100 02/19/21 08:00 Intake & Output 02/18/21 02/19/21 02/19/21 18:59 06:59 18:59 Intake Total 1077 Output Total 0 250 Balance 1077 -250 Weight 72.7 kg Intake: Intake, IV Titration 200 Amount Sodium Chloride 0.9% 1, 200 000 ml @ 50 mls/hr IV . Q20H [facility] Rx#:[id number] Oral 598 Blood Product 279 Rc Pheresis 2 As3 Unit 279 [id number] Output: Urine 250 Hemodialysis 0 Other: Voiding Method Urinal Urinal # Voids 1 - Labs CBC & Chem 7: 02/19/21 17:09 02/19/21 08:05 Labs: Abnormal Lab Results - Last 24 Hours (Table) 02/16/21 02/18/21 Range/Units 11:37 06:56 C-Reactive Protein 1.3 H (<1.0) mg/dL Crossmatch See Detail
[2021-02-20 00:42] LABS: HIV-1 RNA Not detected (Not detected)
[2021-02-20 06:13] LABS: Amorphous Sediment,Urine Rare /hpf; Appearance,Urine Clear (Clear); Bacteria,Urine Rare /hpf; Bilirubin,Urine Negative (Negative); Blood,Urine Large (Negative); Color,Urine Yellow; Glucose,Urine (UA) Negative (Negative); Ketones,Urine Negative (Negative); Leukocyte Esterase,Urine Small (Negative); Mucus,Urine Rare /hpf; Nitrite,Urine Negative (Negative); PH, Urine 5.5 (5.0-8.0); Protein,Urine 1+ (Negative); RBC,Urine 100 /hpf (0-5); Specific Gravity,Urine 1.014 (1.001-1.035); Squamous Epithelial Cell,Urine <1 /hpf (0-4); Urobilinogen,Urine <2.0 mg/dL (<2.0); WBC,Urine 9 /hpf (0-5)
[2021-02-20] MEDS: PANTOPRAZOLE 40 MG TABLET PO SCH (06:16)
[2021-02-20 06:30] LABS: Anisocytosis Slight; HCT 23.2 % (39.0-53.0); HGB 7.2 gm/dL (13.0-17.5); Hypochromasia Slight; MCH 28.6 pg (25.0-35.0); Mean Platelet Volume 8.8; Neutrophils % (A) 86 %; Platelet Count 152 k/uL (150-450); RBC 2.53 m/uL (4.30-5.90); RDW 17.9 % (11.5-15.5); WBC 15.7 k/uL (3.8-10.6)
[2021-02-20 06:31] LABS: Basophils % (A) 0 %; Eosinophils % (A) 0 %; Lymphocytes # (A) 1.1 k/uL (1.0-4.8); Lymphocytes % (A) 7 %; Monocytes % (A) 6 %; Neutrophils # (A) 13.5 k/uL (1.3-7.7)
[2021-02-20 06:37] LABS: INR 1.5 (<1.2); Prothrombin Time 14.7 sec (9.0-12.0)
[2021-02-20 06:57] LABS: Calcium 7.9 mg/dL (8.4-10.2); Potassium 3.8 mmol/L (3.5-5.1)
[2021-02-20] MEDS ORDERED: PHYTONADIONE 2 MG in SODIUM CHLORIDE 0.9% 50 ML IVPB STA (07:43)
[2021-02-20] MEDS: CYANOCOBALAMIN 500 MCG TAB PO SCH (08:30)
[2021-02-20] MEDS: predniSONE 20 MG TAB PO SCH (08:31)
[2021-02-20] MEDS: CHOLECALCIFEROL 25 MCG (1000 IU) TABLET PO SCH (08:31)
[2021-02-20] MEDS: HEPARIN SODIUM,PORCINE/PF 5,000 UNIT/0.5 ML SYRINGE SQ SCH ×2 (08:32→19:34)
--- NOTE | 2021-02-20 09:36 | P.PN ---
Subjective Patient is seen in follow-up for acute kidney injury on chronic kidney disease. High suspicion for vasculitis with positive serologies. Patient had canceled kidney biopsy outpatient and was sent to the hospital due to hyperkalemia and worsening renal function. Kidney biopsy done February 16 but was a poor sample. He is maintained on prednisone which was started February 15. Denies chest pain or shortness of breath. No gross hematuria. No melena or hematochezia. He did receive a unit of blood this admission. Hemoglobin 7.2 this morning. Urine output documented as 250 mL for February 19. Vital signs are stable. General: The patient appeared well nourished and normally developed. HEENT: Head exam is unremarkable. LUNGS: Breath sounds decreased. HEART: Rate and Rhythm are regular. ABDOMEN: Soft, no distention. EXTREMITITES: No edema. Objective - Vital Signs Vital signs: Vital Signs Temp 97.6 F 02/20/21 08:00 Pulse 52 L 02/20/21 08:00 Resp 16 02/20/21 08:00 BP 112/63 02/20/21 08:00 Pulse Ox 97 02/20/21 08:00 Intake & Output 02/19/21 02/20/21 02/20/21 18:59 06:59 18:59 Intake Total 10 Output Total 400 Balance -390 Weight 73.7 kg Intake: IV 10 Invasive Line 2 10 Output: Urine 400 Other: Voiding Method Urinal Urinal - Labs CBC & Chem 7: 02/20/21 05:52 02/20/21 05:52 Labs: Abnormal Lab Results - Last 24 Hours (Table) 02/19/21 02/19/21 02/20/21 Range/Units 08:05 17:09 05:42 WBC 11.5 H (3.8-10.6) k/uL RBC 2.68 L (4.30-5.90) m/uL Hgb 7.7 L (13.0-17.5) gm/dL Hct 24.5 L (39.0-53.0) % RDW 18.3 H (11.5-15.5) % Neutrophils # 10.5 H (1.3-7.7) k/uL Lymphocytes # 0.7 L (1.0-4.8) k/uL PT (9.0-12.0) sec INR (<1.2) Chloride 109 H (98-107) mmol/L BUN 39 H (9-20) mg/dL Creatinine 2.47 H (0.66-1.25) mg/dL Calcium 8.1 L (8.4-10.2) mg/dL Urine Protein 1+ H (Negative) Urine Blood Large H (Negative) Ur Leukocyte Esterase Small H (Negative) Urine RBC 100 H (0-5) /hpf Urine WBC 9 H (0-5) /hpf Amorphous Sediment Rare H (None) /hpf Urine Bacteria Rare H (None) /hpf Urine Mucus Rare H (None) /hpf 02/20/21 02/20/21 02/20/21 Range/Units 05:52 05:52 05:52 WBC 15.7 H (3.8-10.6) k/uL RBC 2.53 L (4.30-5.90) m/uL Hgb 7.2 L (13.0-17.5) gm/dL Hct 23.2 L (39.0-53.0) % RDW 17.9 H (11.5-15.5) % Neutrophils # 13.5 H (1.3-7.7) k/uL Lymphocytes # (1.0-4.8) k/uL PT 14.7 H (9.0-12.0) sec INR 1.5 H (<1.2) Chloride 109 H (98-107) mmol/L BUN 47 H (9-20) mg/dL Creatinine 2.79 H (0.66-1.25) mg/dL Calcium 7.9 L (8.4-10.2) mg/dL Urine Protein (Negative) Urine Blood (Negative) Ur Leukocyte Esterase (Negative) Urine RBC (0-5) /hpf Urine WBC (0-5) /hpf Amorphous Sediment (None) /hpf Urine Bacteria (None) /hpf Urine Mucus (None) /hpf Assessment and Plan Plan: Assessment: 1. Acute kidney injury secondary to ATN from hypovolemia as well as acute vasculitis. Started on prednisone February 15. S/p kidney biopsy February 16 - the sample was mostly fat and no cortex; therefore unable to diagnose vasculitis. Started on hemodialysis due to uremia on February 14. 2. Hyperkalemia secondary to acute kidney injury. Improved postdialysis. 3. Metabolic acidosis secondary to acute kidney injury. Improved postdialysis and bicarb drip. 4. Acute blood loss anemia with component of chronic kidney disease. No active bleeding. Status post blood transfusion. On Aranesp. Hemoglobin 7.2 today. Plan: Hemodialysis today. He will be maintained on a Tuesday schedule. Kidney biopsy will be repeated. I will give him DDAVP before the biopsy. Case discussed with radiologist - unwilling to do the biopsy unless INR below 1.2. He did receive vitamin K yesterday and this will be repeated again today. INR will be repeated again this afternoon. He will also receive a unit of blood with dialysis today. Maintain normal saline. Maintain prednisone. Maintain proton pump inhibitor. Continue to monitor for renal recovery. Strict I's and O's. Discussed with the nurse. Outpatient dialysis being set up. Follow-up anti-GBM. Check phosphorus level.
--- NOTE | 2021-02-20 13:12 | IR ---
EXAMINATION TYPE: IR cvc insert central tunneled DATE OF EXAM: 02/19/2021 COMPARISON: NONE HISTORY: Fluoroscopy time. Fluoroscopy was provided to the referring clinician.
[2021-02-20 14:55] LABS: INR 1.3 (<1.2); Prothrombin Time 13.4 sec (9.0-12.0)
--- NOTE | 2021-02-21 02:22 | P.PN ---
Subjective Progress Note Date: 02/20/21 ROCKY Mr. Copeland is a 75-year-old male with a past medical history of atrial fibrillation, gout, nephrolithiasis, diverticulitis coming to the hospital with a chief complaint of abnormal labs. 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 At the time of admission patient had acute kidney injury with elevated creatinine of 6.9. Patient is being followed by nephrology. On 02/14/2021 patient was seen and examined at the bedside. He is sitting comfortably in bed appears to be no acute distress. Patient states that Dr. Dennis has spoken to him earlier and would probably start him on dialysis today. Patient was very disturbed, anxious to get the procedure done. Patient denied having any chest pain or palpitations. No cough or difficulty breathing. No fevers chills or rigors. He mentions that his urine output has been stable. Patient denies having any weakness of his extremities. On reviewing his vitals have been stable with blood pressure of 129 x 81, heart rate 60, respiratory 18, temperature 98, saturating at 97% on room air. Labs reviewed and BUN and creatinine still elevated. On 02/15/2021 patient was seen and examined at the bedside. Patient is sitting up in the bed, he states that he feels slightly dizzy and nauseous this morning. Patient denies having any chest pain or palpitations. No cough or difficulty breathing. No abdominal pain vomiting or diarrhea. Patient has been started on hemodialysis yesterday. On reviewing the patient's vitals from this morning temperature of 97.5, heart rate 80, respiratory rate 16, blood pressure 133/70 saturating 98% on room air. On reviewing the patient's labs sodium 131, potassium 3.6, chloride 91, bicarb 30, BUN 78, creatinine 3.50. On 02/16/2021 patient seen and examined at the bedside. Patient is scheduled for a kidney biopsy later today. Patient is sitting up in the bed with drip at the bedside. He states he is nauseous but did not throw up. He feels like he might throw up. Patient denied having any chest pain or palpitations. No cough or difficulty breathing. On reviewing the patient's vitals temperature of 98, heart rate 90s 200s, respiratory rate 16, blood pressure 113/67 saturating at 100% on room air. Patient's labs reviewed last labs are from day before when he had the dialysis. 02/17/2021 Patient is seen and evaluated in follow-up status post right renal biopsy and nephrology following closely. Patient was started on hemodialysis with a temporary dialysis catheter placement. Awaiting for biopsy results. Patient denies any further episodes of nausea and vomiting and is tolerating diet. Encouraged oral intake and increase activity as tolerated. Patient had positive serologies of P-ANCA antibodies and will add rheumatoid factor, SARA, RF, sed rate, CRP, HIV, chest x-ray and EKG. Patient denies any shortness of breath or chest pains at this time. Will repeat a.m. labs and continue to monitor closely. Patient also continues on daily high-dose prednisone and will cont inue. 02/18/2021 Patient is evaluated this morning and being closely monitored. Nephrology following and awaiting renal biopsy. Patient awaiting permacath placement and case management following and arranging for outpatient dialysis. Patient hemoglobin found to be 6.3 today and will give a unit during dialysis today and repeat am labs. Kidney functions improving. Chest xray done shows no acute p rocess. SARA was negative and RF was less than 10. CRP 1.3. Patient denies any chest pain or shortness of breath. Patient continues on oral prednisone 60 mg daily. 02/19/2021 Patient is seen in follow up this morning and is scheduled to undergo permanent catheter placement with Dr. Gomez today. Patient is currently NPO and denies any nausea or vomiting. Patient is anxious and nervous about upcoming procedure and also awaiting repeat renal biopsy. INR is 1.5 today and will give Vitamin K with close monitoring of INR. Patient is status post 1 Unit of Prbc. Hemoglobin is 7.6 this morning. Patient denies any shortness of breath or chest pain. No lower extremity swelling noted. 02/20/2021 Patient is seen in follow up and was tentatively scheduled for a repeat renal biopsy this morning and INR continues to be 1.5 and hemoglobin is 7.2. IR to do the biopsy and nephrology following closely. Hemodialysis today. Right chest wall catheter in place and dressing is dry with no bleeding noted. Patient is afebrile and denies any chest pain or shortness of breath. Family at the bedside. WBC elevated most likely steroid induced as there is no fever and chest xray most recently was negative. Labs: WBC is 15.7, hgb is 7.2, platelets are 152, inr 1.5, sodium is 137, potassium is 3.8, Bun is 47, cr is 2.79 Review of systems: Constitutional: No reports of fatigue, fever, or chills Cardiovascular: No reports of chest pain or palpitations Respiratory: No reports of shortness of breath or cough GI: No reports of nausea, vomiting, or diarrhea : No reports of dysuria or retention Neurovascular: No reports of weakness or numbness All medications have been reviewed Active Medications Cholecalciferol (Cholecalciferol 25 Mcg (1000 Iu) Tablet) 50 mcg PO DAILY [facility] Last Admin: 02/20/21 08:31 Dose: 50 mcg Documented by: Cyanocobalamin (Cyanocobalamin 500 Mcg Tab) 500 mcg PO DAILY [facility] Last Admin: 02/20/21 08:30 Dose: 500 mcg Documented by: Darbepoetin Manohar (Darbepoetin Manohar 40 Mcg/0.4 Ml Syringe) 40 mcg SQ Q7D [facility] Last Admin: 02/18/21 14:17 Dose: 40 mcg Documented by: Heparin Sodium (Porcine) (Heparin Sodium,Porcine/Pf 5,000 Unit/0.5 Ml Syringe) 5,000 unit SQ Q12HR [facility] Last Admin: 02/20/21 19:34 Dose: Not Given Documented by: Sodium Chloride (Saline 0.9%) 1,000 mls @ 50 mls/hr IV .Q20H [facility] Last Admin: 02/19/21 20:00 Dose: Not Given Documented by: Naloxone HCl (Naloxone 0.4 Mg/Ml 1 Ml Vial) 0.2 mg IV Q2M PRN PRN Reason: Opioid Reversal Ondansetron HCl (Ondansetron 4 Mg/2 Ml Vial) 4 mg IVP Q6HR PRN PRN Reason: Nausea And Vomiting Last Admin: 02/16/21 15:56 Dose: 4 mg Documented by: Pantoprazole Sodium (Pantoprazole 40 Mg Tablet) 40 mg PO AC-BRKFST [facility] Last Admin: 02/20/21 06:16 Dose: Not Given Documented by: Prednisone (Prednisone 20 Mg Tab) 60 mg PO DAILY [facility] Last Admin: 02/20/21 08:31 Dose: 60 mg Documented by: Physical exam: GENERAL: The patient is alert and oriented x3, well developed, well nourished. HEENT: Pupils are round and equally reacting to light. EOMI. No scleral icterus. No conjunctival pallor. CARDIOVASCULAR: S1 and S2 muffled PULMONARY: Diminished breath sounds bilaterally with no wheezing or crackles. Right chest wall permacath site and dressing is dry and intact with no bleeding noted. ABDOMEN: Soft, non-tender, non-distended, normoactive bowel sounds. No palpable organomegaly. MUSCULOSKELETAL: No joint swelling or deformity. EXTREMITIES: No cyanosis, clubbing, or pedal edema. Temporary Dialysis catheter in right groin has been removed NEUROLOGICAL: Gross neurological examination did not reveal any focal deficits. SKIN: No rashes. Assessment: -Renal failure acute on chronic: Secondary to possible nephrotic syndrome patient has P-ANCA antibody positive. -Hypovolemia -leukocytosis most likely reactive to steroids. Afebrile, chest xray negative, urine is negative -acute blood loss anemia possibly secondary to chronic kidney disease -Acute Vasculitis -Anion gap and non-anion gap metabolic acidosis secondary to renal failure -Hyperkalemia secondary to renal failure -Hyperphosphatasemia -Hyponatremia: Secondary to renal failure. -DVT prophylaxis: Subcutaneous heparin -Full code PLAN: Recommend to continue with current medications and management with nephrology following closely. Patient needs repeat renal biopsy and is being planned with IR of when inr is 1.3 and hemoglobin is stable. Possibly Tuesday. Patient will be receiving hemodialysis today and is status post permanent catheter placement for the outpatient setting to the right chest. Kidney functions improving and will continue with daily labs. Encouraged oral intake. Encouraged increase activity as tolerated. recommend to continue to monitor closely and transfuse if less than 7. Prognosis is guarded. Further recommendations to follow based on the clinical course of the patient. Objective - Vital Signs Vital signs: Vital Signs Temp 97.6 F 02/20/21 08:00 Pulse 52 L 02/20/21 08:00 Resp 16 02/20/21 08:00 BP 112/63 02/20/21 08:00 Pulse Ox 97 02/20/21 08:00 Intake & Output 02/19/21 02/20/21 02/20/21 18:59 06:59 18:59 Intake Total 10 180 Output Total 400 Balance -390 180 Weight 73.7 kg Intake: IV 10 Invasive Line 2 10 Oral 180 Output: Urine 400 Other: Voiding Method Urinal Urinal - Labs CBC & Chem 7: 02/20/21 05:52 02/20/21 05:52 Labs: Abnormal Lab Results - Last 24 Hours (Table) 02/19/21 02/20/21 02/20/21 Range/Units 17:09 05:42 05:52 WBC 11.5 H (3.8-10.6) k/uL RBC 2.68 L (4.30-5.90) m/uL Hgb 7.7 L (13.0-17.5) gm/dL Hct 24.5 L (39.0-53.0) % RDW 18.3 H (11.5-15.5) % Neutrophils # 10.5 H (1.3-7.7) k/uL Lymphocytes # 0.7 L (1.0-4.8) k/uL PT 14.7 H (9.0-12.0) sec INR 1.5 H (<1.2) Chloride (98-107) mmol/L BUN (9-20) mg/dL Creatinine (0.66-1.25) mg/dL Calcium (8.4-10.2) mg/dL Urine Protein 1+ H (Negative) Urine Blood Large H (Negative) Ur Leukocyte Esterase Small H (Negative) Urine RBC 100 H (0-5) /hpf Urine WBC 9 H (0-5) /hpf Amorphous Sediment Rare H (None) /hpf Urine Bacteria Rare H (None) /hpf Urine Mucus Rare H (None) /hpf 02/20/21 02/20/21 Range/Units 05:52 05:52 WBC 15.7 H (3.8-10.6) k/uL RBC 2.53 L (4.30-5.90) m/uL Hgb 7.2 L (13.0-17.5) gm/dL Hct 23.2 L (39.0-53.0) % RDW 17.9 H (11.5-15.5) % Neutrophils # 13.5 H (1.3-7.7) k/uL Lymphocytes # (1.0-4.8) k/uL PT (9.0-12.0) sec INR (<1.2) Chloride 109 H (98-107) mmol/L BUN 47 H (9-20) mg/dL Creatinine 2.79 H (0.66-1.25) mg/dL Calcium 7.9 L (8.4-10.2) mg/dL Urine Protein (Negative) Urine Blood (Negative) Ur Leukocyte Esterase (Negative) Urine RBC (0-5) /hpf Urine WBC (0-5) /hpf Amorphous Sediment (None) /hpf Urine Bacteria (None) /hpf Urine Mucus (None) /hpf
[2021-02-21] MEDS: PANTOPRAZOLE 40 MG TABLET PO SCH (06:52)
[2021-02-21] MEDS: SODIUM CHLORIDE 0.9% 1,000 ML IV SCH ×2 (06:58→08:09)
[2021-02-21] MEDS: HEPARIN SODIUM,PORCINE/PF 5,000 UNIT/0.5 ML SYRINGE SQ SCH ×2 (08:10→19:48)
[2021-02-21] MEDS: CHOLECALCIFEROL 25 MCG (1000 IU) TABLET PO SCH (08:26)
[2021-02-21] MEDS: predniSONE 20 MG TAB PO SCH (08:26)
[2021-02-21] MEDS: CYANOCOBALAMIN 500 MCG TAB PO SCH (08:26)
--- NOTE | 2021-02-21 08:50 | P.PN ---
Subjective Patient is seen in follow-up for acute kidney injury on chronic kidney disease. High suspicion for vasculitis with positive serologies. Patient had canceled kidney biopsy outpatient and was sent to the hospital due to hyperkalemia and worsening renal function. Kidney biopsy done February 16 but was a poor sample. He is maintained on prednisone which was started February 15. Denies chest pain or shortness of breath. No gross hematuria. No melena or hematochezia. He did receive a unit of blood this admission. Hemoglobin 7.2 yesterday. Urine output documented as 400 mL for February 19. No changes overnight. No problems with dialysis yesterday. Vital signs are stable. General: The patient appeared well nourished and normally developed. HEENT: Head exam is unremarkable. LUNGS: Breath sounds decreased. HEART: Rate and Rhythm are regular. ABDOMEN: Soft, no distention. EXTREMITITES: No edema. Objective - Vital Signs Vital signs: Vital Signs Temp 97.9 F 02/20/21 20:00 Pulse 50 L 02/21/21 04:00 Resp 18 02/21/21 04:00 BP 157/75 02/21/21 04:00 Pulse Ox 96 02/21/21 07:59 Intake & Output 02/20/21 02/21/21 02/21/21 18:59 06:59 18:59 Intake Total 990 485 Output Total 0 375 Balance 990 110 Weight 74.8 kg Intake: Intake, IV Titration 500 Amount Phytonadione 2 mg In 100 Sodium Chloride 0.9% 50 ml @ 100 mls/hr IVPB ONCE STA Rx#:[id number] Sodium Chloride 0.9% 1, 400 000 ml @ 50 mls/hr IV . Q20H [facility] Rx#:[id number] Oral 180 485 Blood Product 310 Rc As-1 Unit 310 [id number] Output: Urine 375 Hemodialysis 0 Other: Voiding Method Urinal Urinal # Voids 200 - Labs CBC & Chem 7: 02/20/21 05:52 02/20/21 05:52 Labs: Abnormal Lab Results - Last 24 Hours (Table) 02/20/21 02/20/21 Range/Units 05:52 13:20 PT 13.4 H (9.0-12.0) sec INR 1.3 H (<1.2) Crossmatch See Detail Assessment and Plan Plan: Assessment: 1. Acute kidney injury secondary to ATN from hypovolemia as well as acute vasculitis. Started on prednisone February 15. S/p kidney biopsy February 16 - the sample was mostly fat and no cortex; therefore unable to diagnose vasculitis. Started on hemodialysis due to uremia on February 14. Anti-GBM negative. 2. Hyperkalemia secondary to acute kidney injury. Improved postdialysis. 3. Metabolic acidosis secondary to acute kidney injury. Improved postdialysis and bicarb drip. 4. Acute blood loss anemia with component of chronic kidney disease. No active bleeding. Status post blood transfusion. On [place]rap. Hemoglobin 7.2 ye . Plan: Hemodialysis Tuesday. Kidney biopsy will be repeated. I will give him DDAVP before the biopsy. Case discussed with radiologist - unwilling to do the biopsy unless INR below 1.2. He did receive vitamin K x2. Hep-Lock IV fluids. Maintain prednisone. Maintain proton pump inhibitor. Continue to monitor for renal recovery. Strict I's and O's. Outpatient dialysis being set up. Morning labs pending.
[2021-02-21 12:51] LABS: INR 1.2 (<1.2); Prothrombin Time 12.9 sec (9.0-12.0)
[2021-02-21 12:53] LABS: Anisocytosis Slight; Basophils % (A) 0 %; Eosinophils % (A) 0 %; HCT 31.4 % (39.0-53.0); HGB 10.1 gm/dL (13.0-17.5); Lymphocytes % (A) 6 %; MCH 29.5 pg (25.0-35.0); MCHC 32.3 g/dL (31.0-37.0); MCV 91.2 fL (80.0-100.0); Mean Platelet Volume 8.6; Monocytes # (A) 0.6 k/uL (0-1.0); Monocytes % (A) 4 %; Neutrophils # (A) 14.6 k/uL (1.3-7.7); Neutrophils % (A) 90 %; Platelet Count 168 k/uL (150-450); RBC 3.44 m/uL (4.30-5.90); RDW 16.9 % (11.5-15.5); WBC 16.3 k/uL (3.8-10.6)
[2021-02-21 13:05] LABS: Phosphorus 2.2 mg/dL (2.5-4.5); Potassium 3.7 mmol/L (3.5-5.1)
--- NOTE | 2021-02-22 01:42 | P.PN ---
Subjective Progress Note Date: 02/21/21 ROCKY Mr. Copeland is a 75-year-old male with a past medical history of atrial fibrillation, gout, nephrolithiasis, diverticulitis coming to the hospital with a chief complaint of abnormal labs. Patient was called by his cd technician because of abnormal labs and was recommended to go to the emergency department for high phosphorus levels. At the time of admission patient had acute kidney injury with elevated creatinine of 6.9. Patient is being followed by nephrology. On 02/14/2021 patient was seen and examined at the bedside. He is sitting comfortably in bed appears to be no acute distress. Patient states that Dr. Dennis has spoken to him earlier and would probably start him on dialysis today. Patient was very disturbed, anxious to get the procedure done. Patient denied having any chest pain or palpitations. No cough or difficulty breathing. No fevers chills or rigors. He mentions that his urine output has been stable. Patient denies having any weakness of his extremities. On reviewing his vitals have been stable with blood pressure of 129 x 81, heart rate 60, respiratory 18, temperature 98, saturating at 97% on room air. Labs reviewed and BUN and creatinine still elevated. On 02/15/2021 patient was seen and examined at the bedside. Patient is sitting up in the bed, he states that he feels slightly dizzy and nauseous this morning. Patient denies having any chest pain or palpitations. No cough or difficulty breathing. No abdominal pain vomiting or diarrhea. Patient has been started on hemodialysis yesterday. On reviewing the patient's vitals from this morning temperature of 97.5, heart rate 80, respiratory rate 16, blood pressure 133/70 saturating 98% on room air. On reviewing the patient's labs sodium 131, potassium 3.6, chloride 91, bicarb 30, BUN 78, creatinine 3.50. On 02/16/2021 patient seen and examined at the bedside. Patient is scheduled for a kidney biopsy later today. Patient is sitting up in the bed with drip at the bedside. He states he is nauseous but did not throw up. He feels like he might throw up. Patient denied having any chest pain or palpitations. No cough or difficulty breathing. On reviewing the patient's vitals temperature of 98, heart rate 90s 200s, respiratory rate 16, blood pressure 113/67 saturating at 100% on room air. Patient's labs reviewed last labs are from day before when he had the dialysis. 02/17/2021 Patient is seen and evaluated in follow-up status post right renal biopsy and nephrology following closely. Patient was started on hemodialysis with a temporary dialysis catheter placement. Awaiting for biopsy results. Patient denies any further episodes of nausea and vomiting and is tolerating diet. Encouraged oral intake and increase activity as tolerated. Patient had positive serologies of P-ANCA antibodies and will add rheumatoid factor, SARA, RF, sed rate, CRP, HIV, chest x-ray and EKG. Patient denies any shortness of breath or chest pains at this time. Will repeat a.m. labs and continue to monitor closely. Patient also continues on daily high-dose prednisone and will cont inue. 02/18/2021 Patient is evaluated this morning and being closely monitored. Nephrology following and awaiting renal biopsy. Patient awaiting permacath placement and case management following and arranging for outpatient dialysis. Patient hemoglobin found to be 6.3 today and will give a unit during dialysis today and repeat am labs. Kidney functions improving. Chest xray done shows no acute p rocess. SARA was negative and RF was less than 10. CRP 1.3. Patient denies any chest pain or shortness of breath. Patient continues on oral prednisone 60 mg daily. 02/19/2021 Patient is seen in follow up this morning and is scheduled to undergo permanent catheter placement with Dr. Gomez today. Patient is currently NPO and denies any nausea or vomiting. Patient is anxious and nervous about upcoming procedure and also awaiting repeat renal biopsy. INR is 1.5 today and will give Vitamin K with close monitoring of INR. Patient is status post 1 Unit of Prbc. Hemoglobin is 7.6 this morning. Patient denies any shortness of breath or chest pain. No lower extremity swelling noted. 02/20/2021 Patient is seen in follow up and was tentatively scheduled for a repeat renal biopsy this morning and INR continues to be 1.5 and hemoglobin is 7.2. IR to do the biopsy and nephrology following closely. Hemodialysis today. Right chest wall catheter in place and dressing is dry with no bleeding noted. Patient is afebrile and denies any chest pain or shortness of breath. Family at the bedside. WBC elevated most likely steroid induced as there is no fever and chest xray most recently was negative. 02/21/2021 Patient evaluated in follow up today with no acute overnight issues. Patient to undergo renal biopsy on Tuesday and will continue to monitor closely. Dr. Weems consulted for vasculitis. Hemoglobin is 10.1. Kidney functions stable and maintained on hemodialysis m/w/ with nephrology following closely. Labs: WBC is 16.3, hgb is 10.1, platelets are 168, inr 1.2, sodium is 132, potassium is 3.7, Bun is 33, cr is 2.31, mag is 2.0 Review of systems: Constitutional: No reports of fatigue, fever, or chills Cardiovascular: No reports of chest pain or palpitations Respiratory: No reports of shortness of breath or cough GI: No reports of nausea, vomiting, or diarrhea : No reports of dysuria or retention Neurovascular: No reports of weakness or numbness All medications have been reviewed Active Medications Cholecalciferol (Cholecalciferol 25 Mcg (1000 Iu) Tablet) 50 mcg PO DAILY [facility] Last Admin: 02/21/21 08:26 Dose: 50 mcg Documented by: Cyanocobalamin (Cyanocobalamin 500 Mcg Tab) 500 mcg PO DAILY [facility] Last Admin: 02/21/21 08:26 Dose: 500 mcg Documented by: Darbepoetin Manohar (Darbepoetin Manohar 40 Mcg/0.4 Ml Syringe) 40 mcg SQ Q7D [facility] Last Admin: 02/18/21 14:17 Dose: 40 mcg Documented by: Heparin Sodium (Porcine) (Heparin Sodium,Porcine/Pf 5,000 Unit/0.5 Ml Syringe) 5,000 unit SQ Q12HR [facility] Last Admin: 02/21/21 19:48 Dose: Not Given Documented by: Naloxone HCl (Naloxone 0.4 Mg/Ml 1 Ml Vial) 0.2 mg IV Q2M PRN PRN Reason: Opioid Reversal Ondansetron HCl (Ondansetron 4 Mg/2 Ml Vial) 4 mg IVP Q6HR PRN PRN Reason: Nausea And Vomiting Last Admin: 02/16/21 15:56 Dose: 4 mg Documented by: Pantoprazole Sodium (Pantoprazole 40 Mg Tablet) 40 mg PO AC-BRKFST [facility] Last Admin: 02/21/21 06:52 Dose: 40 mg Documented by: Prednisone (Prednisone 20 Mg Tab) 60 mg PO DAILY [facility] Last Admin: 02/21/21 08:26 Dose: 60 mg Documented by: Physical exam: GENERAL: The patient is alert and oriented x3, well developed, well nourished. HEENT: Pupils are round and equally reacting to light. EOMI. No scleral icterus. No conjunctival pallor. CARDIOVASCULAR: S1 and S2 muffled PULMONARY: Diminished breath sounds bilaterally with no wheezing or crackles. Right chest wall permacath site and dressing is dry and intact with no bleeding noted. ABDOMEN: Soft, non-tender, non-distended, normoactive bowel sounds. No palpable organomegaly. MUSCULOSKELETAL: No joint swelling or deformity. EXTREMITIES: No cyanosis, clubbing, or pedal edema. NEUROLOGICAL: Gross neurological examination did not reveal any focal deficits. SKIN: No rashes. Assessment: -Renal failure acute on chronic: Secondary to possible nephrotic syndrome patie nt has P-ANCA antibody positive. -Hypovolemia -leukocytosis most likely reactive to steroids. Afebrile, chest xray negative, urine is negative -acute blood loss anemia possibly secondary to chronic kidney disease -Acute Vasculitis -Anion gap and non-anion gap metabolic acidosis secondary to renal failure -Hyperkalemia secondary to renal failure -Hyperphosphatasemia -Hyponatremia: Secondary to renal failure. -DVT prophylaxis: Subcutaneous heparin -Full code PLAN: Recommend to continue with current medications and management with nephrology following closely. Patient needs repeat renal biopsy and is being planned with IR of when inr is 1.3 and hemoglobin is stable. Possibly Tuesday. Patient maintained on hemodialysis //. Kidney functions improving and will continue with daily labs. Encouraged oral intake. Encouraged increase activity as tolerated. recommend to continue to monitor closely and transfuse if less than 7. Hemoglobin is 10.[address] Weems consulted for vasculitis. Patient continues with elevated WBC which may be secondary to high dose steroids or a possibly secondary to vasculitis. Patient is afebrile with no worsening shortness of breath, repeat UA is normal. Patient denies any burning or dysuria. No reports of shortness of breath. Prognosis is guarded. Further recommendations to follow based on the clinical course of the patient. Objective - Vital Signs Vital signs: Vital Signs Temp 98.4 F 02/21/21 08:00 Pulse 68 02/21/21 12:00 Resp 18 02/21/21 12:00 BP 147/64 02/21/21 12:00 Pulse Ox 99 02/21/21 12:00 Intake & Output 02/20/21 02/21/21 02/21/21 18:59 06:59 18:59 Intake Total 990 485 Output Total 0 375 Balance 990 110 Weight 74.8 kg Intake: Intake, IV Titration 500 Amount Phytonadione 2 mg In 100 Sodium Chloride 0.9% 50 ml @ 100 mls/hr IVPB ONCE STA Rx#:[id number] Sodium Chloride 0.9% 1, 400 000 ml @ 50 mls/hr IV . Q20H [facility] Rx#:[id number] Oral 180 485 Blood Product 310 Rc As-1 Unit 310 [id number] Output: Urine 375 Hemodialysis 0 Other: Voiding Method Urinal Urinal Urinal # Voids 200 - Labs CBC & Chem 7: 02/21/21 12:05 02/21/21 12:05 Labs: Abnormal Lab Results - Last 24 Hours (Table) 02/20/21 02/20/21 02/21/21 Range/Units 05:52 13:20 12:05 WBC (3.8-10.6) k/uL RBC (4.30-5.90) m/uL Hgb (13.0-17.5) gm/dL Hct (39.0-53.0) % RDW (11.5-15.5) % Neutrophils # (1.3-7.7) k/uL PT 13.4 H (9.0-12.0) sec INR 1.3 H (<1.2) Sodium 132 L (137-145) mmol/L BUN 33 H (9-20) mg/dL Creatinine 2.31 H (0.66-1.25) mg/dL Glucose 112 H (74-99) mg/dL Calcium 8.0 L (8.4-10.2) mg/dL Phosphorus 2.2 L (2.5-4.5) mg/dL Crossmatch See Detail 02/21/21 02/21/21 Range/Units 12:05 12:05 WBC 16.3 H (3.8-10.6) k/uL RBC 3.44 L (4.30-5.90) m/uL Hgb 10.1 L (13.0-17.5) gm/dL Hct 31.4 L (39.0-53.0) % RDW 16.9 H (11.5-15.5) % Neutrophils # 14.6 H (1.3-7.7) k/uL PT 12.9 H (9.0-12.0) sec INR 1.2 H (<1.2) Sodium (137-145) mmol/L BUN (9-20) mg/dL Creatinine (0.66-1.25) mg/dL Glucose (74-99) mg/dL Calcium (8.4-10.2) mg/dL Phosphorus (2.5-4.5) mg/dL Crossmatch
[2021-02-22] MEDS: PANTOPRAZOLE 40 MG TABLET PO SCH (06:44)
[2021-02-22] MEDS: CYANOCOBALAMIN 500 MCG TAB PO SCH (08:30)
[2021-02-22] MEDS: CHOLECALCIFEROL 25 MCG (1000 IU) TABLET PO SCH (08:30)
[2021-02-22] MEDS: HEPARIN SODIUM,PORCINE/PF 5,000 UNIT/0.5 ML SYRINGE SQ SCH ×2 (08:30→20:32)
[2021-02-22] MEDS: predniSONE 20 MG TAB PO SCH (08:30)
--- NOTE | 2021-02-22 09:10 | P.PN ---
Subjective Patient is seen in follow-up for acute kidney injury on chronic kidney disease. High suspicion for vasculitis with positive serologies. Patient had canceled kidney biopsy outpatient and was sent to the hospital due to hyperkalemia and worsening renal function. Kidney biopsy done February 16 but was a poor sample. He is maintained on prednisone which was started February 15. Denies chest pain or shortness of breath. No gross hematuria. No melena or hematochezia. He did receive a unit of blood this admission. Hemoglobin 10.1 yesterday. No changes overnight. Vital signs are stable. General: The patient appeared well nourished and normally developed. HEENT: Head exam is unremarkable. LUNGS: Breath sounds decreased. HEART: Rate and Rhythm are regular. ABDOMEN: Soft, no distention. EXTREMITITES: No edema. Objective - Vital Signs Vital signs: Vital Signs Temp 97.7 F 02/22/21 08:41 Pulse 66 02/22/21 08:41 Resp 18 02/22/21 08:41 BP 141/74 02/22/21 08:41 Pulse Ox 100 02/22/21 08:41 Intake & Output 02/21/21 02/22/21 02/22/21 18:59 06:59 18:59 Intake Total 1080 485 Output Total 1 Balance 1080 484 Weight 82.5 kg Intake: Oral 1080 485 Output: Stool 1 Other: Voiding Method Urinal Urinal Urinal # Voids 1 1 - Labs CBC & Chem 7: 02/21/21 12:05 02/21/21 12:05 Labs: Abnormal Lab Results - Last 24 Hours (Table) 02/21/21 02/21/21 02/21/21 Range/Units 12:05 12:05 12:05 WBC 16.3 H (3.8-10.6) k/uL RBC 3.44 L (4.30-5.90) m/uL Hgb 10.1 L (13.0-17.5) gm/dL Hct 31.4 L (39.0-53.0) % RDW 16.9 H (11.5-15.5) % Neutrophils # 14.6 H (1.3-7.7) k/uL PT 12.9 H (9.0-12.0) sec INR 1.2 H (<1.2) Sodium 132 L (137-145) mmol/L BUN 33 H (9-20) mg/dL Creatinine 2.31 H (0.66-1.25) mg/dL Glucose 112 H (74-99) mg/dL Calcium 8.0 L (8.4-10.2) mg/dL Phosphorus 2.2 L (2.5-4.5) mg/dL Assessment and Plan Plan: Assessment: 1. Acute kidney injury secondary to ATN from hypovolemia as well as acute vasculitis. Started on prednisone February 15. S/p kidney biopsy February 16 - the sample was mostly fat and no cortex; therefore unable to diagnose vasculitis. Started on hemodialysis due to uremia on February 14. Anti-GBM negative. 2. Hyperkalemia secondary to acute kidney injury. Improved postdialysis. 3. Metabolic acidosis secondary to acute kidney injury. Improved postdialysis and bicarb drip. 4. Acute blood loss anemia with component of chronic kidney disease. No active bleeding. Status post blood transfusion. On Aranesp. Hemoglobin 10.1 yesterday. Plan: Hemodialysis Tuesday. Kidney biopsy will be repeated. I will give him DDAVP before the biopsy. Case discussed with radiologist - unwilling to do the biopsy unless INR below 1.2. He did receive vitamin K x2. Remains off IV fluids. Maintain prednisone. Maintain proton pump inhibitor. Continue to monitor for renal recovery. Strict I's and O's. Outpatient dialysis being set up. Morning labs pending.
[2021-02-22 13:23] LABS: Calcium 7.9 mg/dL (8.4-10.2); Potassium 3.5 mmol/L (3.5-5.1)
--- NOTE | 2021-02-22 14:33 | P.PN ---
Subjective Progress Note Date: 02/22/21 ROCKY Mr. Copeland is a 75-year-old male with a past medical history of atrial fibrillation, gout, nephrolithiasis, diverticulitis coming to the hospital with a chief complaint of abnormal labs. Patient was called by his police captain because of abnormal labs and was recommended to go to the emergency department for high phosphorus levels. At the time of admission patient had acute kidney injury with elevated creatinine of 6.9. Patient is being followed by nephrology. On 02/14/2021 patient was seen and examined at the bedside. He is sitting comfortably in bed appears to be no acute distress. Patient states that Dr. Dennis has spoken to him earlier and would probably start him on dialysis today. Patient was very disturbed, anxious to get the procedure done. Patient denied having any chest pain or palpitations. No cough or difficulty breathing. No fevers chills or rigors. He mentions that his urine output has been stable. Patient denies having any weakness of his extremities. On reviewing his vitals have been stable with blood pressure of 129 x 81, heart rate 60, respiratory 18, temperature 98, saturating at 97% on room air. Labs reviewed and BUN and creatinine still elevated. On 02/15/2021 patient was seen and examined at the bedside. Patient is sitting up in the bed, he states that he feels slightly dizzy and nauseous this morning. Patient denies having any chest pain or palpitations. No cough or difficulty breathing. No abdominal pain vomiting or diarrhea. Patient has been started on hemodialysis yesterday. On reviewing the patient's vitals from this morning temperature of 97.5, heart rate 80, respiratory rate 16, blood pressure 133/70 saturating 98% on room air. On reviewing the patient's labs sodium 131, potassium 3.6, chloride 91, bicarb 30, BUN 78, creatinine 3.50. On 02/16/2021 patient seen and examined at the bedside. Patient is scheduled for a kidney biopsy later today. Patient is sitting up in the bed with drip at the bedside. He states he is nauseous but did not throw up. He feels like he might throw up. Patient denied having any chest pain or palpitations. No cough or difficulty breathing. On reviewing the patient's vitals temperature of 98, heart rate 90s 200s, respiratory rate 16, blood pressure 113/67 saturating at 100% on room air. Patient's labs reviewed last labs are from day before when he had the dialysis. 02/17/2021 Patient is seen and evaluated in follow-up status post right renal biopsy and nephrology following closely. Patient was started on hemodialysis with a temporary dialysis catheter placement. Awaiting for biopsy results. Patient denies any further episodes of nausea and vomiting and is tolerating diet. Encouraged oral intake and increase activity as tolerated. Patient had positive serologies of P-ANCA antibodies and will add rheumatoid factor, SARA, RF, sed rate, CRP, HIV, chest x-ray and EKG. Patient denies any shortness of breath or chest pains at this time. Will repeat a.m. labs and continue to monitor closely. Patient also continues on daily high-dose prednisone and will cont inue. 02/18/2021 Patient is evaluated this morning and being closely monitored. Nephrology following and awaiting renal biopsy. Patient awaiting permacath placement and case management following and arranging for outpatient dialysis. Patient hemoglobin found to be 6.3 today and will give a unit during dialysis today and repeat am labs. Kidney functions improving. Chest xray done shows no acute p rocess. SARA was negative and RF was less than 10. CRP 1.3. Patient denies any chest pain or shortness of breath. Patient continues on oral prednisone 60 mg daily. 02/19/2021 Patient is seen in follow up this morning and is scheduled to undergo permanent catheter placement with Dr. Gomez today. Patient is currently NPO and denies any nausea or vomiting. Patient is anxious and nervous about upcoming procedure and also awaiting repeat renal biopsy. INR is 1.5 today and will give Vitamin K with close monitoring of INR. Patient is status post 1 Unit of Prbc. Hemoglobin is 7.6 this morning. Patient denies any shortness of breath or chest pain. No lower extremity swelling noted. 02/20/2021 Patient is seen in follow up and was tentatively scheduled for a repeat renal biopsy this morning and INR continues to be 1.5 and hemoglobin is 7.2. IR to do the biopsy and nephrology following closely. Hemodialysis today. Right chest wall catheter in place and dressing is dry with no bleeding noted. Patient is afebrile and denies any chest pain or shortness of breath. Family at the bedside. WBC elevated most likely steroid induced as there is no fever and chest xray most recently was negative. 02/21/2021 Patient evaluated in follow up today with no acute overnight issues. Patient to undergo renal biopsy on Tuesday and will continue to monitor closely. Dr. Weems consulted for vasculitis. Hemoglobin is 10.1. Kidney functions stable and maintained on hemodialysis m/w/f with nephrology following closely. 02/22/2021 Patient is seen in follow up this morning and awaiting renal biopsy in the morning. Will repeat labs and INR to monitor closely. Nephrology following and plan is for DDAVP prior to procedure. Hemodialysis scheduled for tomorrow and being arranged outpatient. Patient to follow up outpatient with nephrology closely. Review of systems: Constitutional: No reports of fatigue, fever, or chills Cardiovascular: No reports of chest pain or palpitations Respiratory: No reports of shortness of breath or cough GI: No reports of nausea, vomiting, or diarrhea : No reports of dysuria or retention Neurovascular: No reports of weakness or numbness All medications have been reviewed Active Medications Generic Name Dose Route Start Last Admin Trade Name Freq PRN Reason Stop Dose Admin Cholecalciferol 50 mcg 02/13/21 09:00 02/22/21 08:30 Cholecalciferol 25 Mcg (1000 Iu) Tablet PO 50 mcg DAILY [facility] Administration Cyanocobalamin 500 mcg 02/13/21 09:00 02/22/21 08:30 Cyanocobalamin 500 Mcg Tab PO 500 mcg DAILY [facility] Administration Darbepoetin Manohar 40 mcg 02/18/21 10:00 02/18/21 14:17 Darbepoetin Manohar 40 Mcg/0.4 Ml Syringe SQ 40 mcg Q7D [facility] Administration Heparin Sodium (Porcine) 5,000 unit 02/13/21 21:00 02/22/21 08:30 Heparin Sodium,Porcine/Pf 5,000 Unit/0.5 Ml Syringe SQ Not Given Q12HR [facility] Naloxone HCl 0.2 mg 02/12/21 23:10 Naloxone 0.4 Mg/Ml 1 Ml Vial IV Q2M PRN Opioid Reversal Ondansetron HCl 4 mg 02/15/21 12:11 02/16/21 15:56 Ondansetron 4 Mg/2 Ml Vial IVP 4 mg Q6HR PRN Administration Nausea And Vomiting Pantoprazole Sodium 40 mg 02/16/21 10:45 02/22/21 06:44 Pantoprazole 40 Mg Tablet PO 40 mg AC-BRKFST [facility] Administration Prednisone 60 mg 02/13/21 12:15 02/22/21 08:30 Prednisone 20 Mg Tab PO 60 mg DAILY [facility] Administration Physical exam: GENERAL: The patient is alert and oriented x3, well developed, well nourished. HEENT: Pupils are round and equally reacting to light. EOMI. No scleral icterus. No conjunctival pallor. CARDIOVASCULAR: S1 and S2 muffled PULMONARY: Diminished breath sounds bilaterally with no wheezing or crackles. Right chest wall permacath site and dressing is dry and intact with no bleeding noted. ABDOMEN: Soft, non-tender, non-distended, normoactive bowel sounds. No palpable organomegaly. MUSCULOSKELETAL: No joint swelling or deformity. EXTREMITIES: No cyanosis, clubbing, or pedal edema. NEUROLOGICAL: Gross neurological examination did not reveal any focal deficits. SKIN: No rashes. Assessment: -Renal failure acute on chronic: Secondary to possible nephrotic syndrome patient has P-ANCA antibody positive. -Hypovolemia -leukocytosis most likely reactive to steroids. Afebrile, chest xray negative, urine is negative -acute blood loss anemia possibly secondary to chronic kidney disease -Acute Vasculitis -Anion gap and non-anion gap metabolic acidosis secondary to renal failure -Hyperkalemia secondary to renal failure -Hyperphosphatasemia -Hyponatremia: Secondary to renal failure. -DVT prophylaxis: Subcutaneous heparin -Full code PLAN: Recommend to continue with current medications and management with nephrology following closely. Patient to undergo renal biopsy in the am if inr is 1.2 and hemoglobin is stable. Patient maintained on hemodialysis //. Kidney functions improving and will continue with daily labs. Encouraged oral intake. Encouraged increase activity as tolerated. recommend to continue to monitor clos nadja and transfuse if less than 7. Dr. Weems consulted for vasculitis. Patient continues with elevated WBC which may be secondary to high dose steroids or a possibly secondary to vasculitis. Patient remains afebrile with no worsening shortness of breath. Prognosis is guarded. Will repeat am labs and plan for biopsy and hemodialysis in the morning. Possible discharge in 24 hours. Objective - Vital Signs Vital signs: Vital Signs Temp 97.7 F 02/22/21 08:41 Pulse 66 02/22/21 08:41 Resp 18 02/22/21 08:41 BP 141/74 02/22/21 08:41 Pulse Ox 100 02/22/21 08:41 Intake & Output 02/21/21 02/22/21 02/22/21 18:59 06:59 18:59 Intake Total 1080 485 Output Total 1 Balance 1080 484 Weight 82.5 kg Intake: Oral 1080 485 Output: Stool 1 Other: Voiding Method Urinal Urinal Urinal # Voids 1 1 - Labs CBC & Chem 7: 02/21/21 12:05 02/22/21 12:22 Labs: Abnormal Lab Results - Last 24 Hours (Table) 02/21/21 02/21/21 02/21/21 Range/Units 12:05 12:05 12:05 WBC 16.3 H (3.8-10.6) k/uL RBC 3.44 L (4.30-5.90) m/uL Hgb 10.1 L (13.0-17.5) gm/dL Hct 31.4 L (39.0-53.0) % RDW 16.9 H (11.5-15.5) % Neutrophils # 14.6 H (1.3-7.7) k/uL PT 12.9 H (9.0-12.0) sec INR 1.2 H (<1.2) Sodium 132 L (137-145) mmol/L BUN 33 H (9-20) mg/dL Creatinine 2.31 H (0.66-1.25) mg/dL Glucose 112 H (74-99) mg/dL Calcium 8.0 L (8.4-10.2) mg/dL Phosphorus 2.2 L (2.5-4.5) mg/dL
[2021-02-23] MEDS: PANTOPRAZOLE 40 MG TABLET PO SCH (06:08)
[2021-02-23] MEDS: HEPARIN SODIUM,PORCINE/PF 5,000 UNIT/0.5 ML SYRINGE SQ SCH ×2 (08:24→19:59)
[2021-02-23 10:02] LABS: Anisocytosis Slight; Basophils % (A) 0 %; Eosinophils % (A) 0 %; HCT 26.3 % (39.0-53.0); HGB 8.7 gm/dL (13.0-17.5); Lymphocytes # (A) 1.6 k/uL (1.0-4.8); Lymphocytes % (A) 11 %; MCH 29.5 pg (25.0-35.0); MCHC 33.1 g/dL (31.0-37.0); MCV 89.2 fL (80.0-100.0); Mean Platelet Volume 8.5; Monocytes # (A) 0.8 k/uL (0-1.0); Monocytes % (A) 5 %; Neutrophils % (A) 82 %; Platelet Count 150 k/uL (150-450); RBC 2.95 m/uL (4.30-5.90); WBC 14.7 k/uL (3.8-10.6)
[2021-02-23 10:13] LABS: INR 1.4 (<1.2); Prothrombin Time 13.8 sec (9.0-12.0)
[2021-02-23 10:40] LABS: Calcium 7.8 mg/dL (8.4-10.2); Potassium 3.3 mmol/L (3.5-5.1)
--- NOTE | 2021-02-23 11:21 | P.PN ---
Subjective Patient is admitted for acute renal failure and presently on hemodialysis present creatinine is around 2.9. 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 Patient will get another kidney biopsy as his INR is 1.4, intervention radiology is not planning on doing the biopsy today and give her vitamin K patient is presently undergoing hemodialysis. Physical exam: GENERAL: The patient is alert and oriented x3, well developed, well nourished. HEENT: Pupils are round and equally reacting to light. EOMI. No scleral icterus. No conjunctival pallor. CARDIOVASCULAR: S1 and S2 muffled PULMONARY: Diminished breath sounds bilaterally with no wheezing or crackles. Right chest wall permacath site and dressing is dry and intact with no bleeding noted. ABDOMEN: Soft, non-tender, non-distended, normoactive bowel sounds. No palpable organomegaly. MUSCULOSKELETAL: No joint swelling or deformity. EXTREMITIES: No cyanosis, clubbing, or pedal edema. NEUROLOGICAL: Gross neurological examination did not reveal any focal deficits. SKIN: No rashes. 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 Awaiting biopsy -Elevated INR secondary to possible vitamin K deficiency patient will be supplemented with vitamin K -leukocytosis most likely reactive to steroids. Afebrile, chest xray negative, urine is negative -acute blood loss anemia possibly secondary to chronic kidney disease -Acute Vasculitis -Anion gap and non-anion gap metabolic acidosis secondary to renal failure -Hyperkalemia secondary to renal failure -Hyperphosphatasemia -Hyponatremia: Secondary to renal failure. -DVT prophylaxis: Subcutaneous heparin -Full code Objective - Vital Signs Vital signs: Vital Signs Temp 97.5 F L 02/23/21 08:00 Pulse 56 L 02/23/21 08:00 Resp 17 02/23/21 08:00 BP 143/71 02/23/21 08:00 Pulse Ox 100 02/23/21 08:00 Intake & Output 02/22/21 02/23/21 02/23/21 18:59 06:59 18:59 Intake Total 180 300 Balance 180 300 Weight 76.7 kg Intake: Oral 180 300 Other: Voiding Method Urinal Toilet Urinal # Voids 3 - Labs CBC & Chem 7: 02/23/21 09:30 02/23/21 09:30 Labs: Abnormal Lab Results - Last 24 Hours (Table) 02/22/21 02/23/21 02/23/21 Range/Units 12:22 09:30 09:30 WBC 14.7 H (3.8-10.6) k/uL RBC 2.95 L (4.30-5.90) m/uL Hgb 8.7 L (13.0-17.5) gm/dL Hct 26.3 L (39.0-53.0) % RDW 17.0 H (11.5-15.5) % Neutrophils # 12.0 H (1.3-7.7) k/uL PT (9.0-12.0) sec INR (<1.2) Sodium 131 L 131 L (137-145) mmol/L Potassium 3.3 L (3.5-5.1) mmol/L BUN 43 H 49 H (9-20) mg/dL Creatinine 2.61 H 2.65 H (0.66-1.25) mg/dL Glucose 109 H (74-99) mg/dL Calcium 7.9 L 7.8 L (8.4-10.2) mg/dL 02/23/21 Range/Units 09:30 WBC (3.8-10.6) k/uL RBC (4.30-5.90) m/uL Hgb (13.0-17.5) gm/dL Hct (39.0-53.0) % RDW (11.5-15.5) % Neutrophils # (1.3-7.7) k/uL PT 13.8 H (9.0-12.0) sec INR 1.4 H (<1.2) Sodium (137-145) mmol/L Potassium (3.5-5.1) mmol/L BUN (9-20) mg/dL Creatinine (0.66-1.25) mg/dL Glucose (74-99) mg/dL Calcium (8.4-10.2) mg/dL
[2021-02-23] MEDS ORDERED: POTASSIUM CHLORIDE ER 10 MEQ TAB.ER.PRT PO STA (11:26)
[2021-02-23] MEDS ORDERED: PHYTONADIONE ORAL 5 MG/5 ML ORAL.SYRG PO ONE (11:45)
[2021-02-23 13:32] VITALS: BMI 25.0
--- NOTE | 2021-02-23 14:15 | PN ---
PROGRESS NOTE Patient is seen for followup for acute kidney injury mostly secondary to underlying vasculitis. Patient is going for a repeat kidney biopsy as a previous biopsy did not have enough sample. This morning, patient is seen on dialysis. He is tolerating his treatment well. PHYSICAL EXAMINATION: Blood pressure is 143/71, heart rate 56 per minute. He is afebrile. Examination of the heart S1, S2. Examination of the lungs, bilateral breath sounds are heard. Abdomen is soft, nontender. Examination of lower extremities shows edema 2+ bilaterally. MANAGER [employer]ETING exam grossly intact. LAB: Show sodium 131, potassium 3.3, chloride 103, BUN 49, creatinine 2.65. ASSESSMENT: 1. Acute kidney injury secondary to vasculitis. Currently maintained on dialysis. The patient is maintained on a Tuesday, Tuesday, Tuesday schedule. 2. Awaiting repeat kidney biopsy as initial biopsy was not a good sample. It was mostly fat, no cortex. 3. Hypokalemia, initially hyperkalemic on initial admission. We will adjust the potassium bath on admission. 4. Metabolic acidosis secondary to renal failure, improved, post dialysis. 5. Acute blood loss anemia and anemia of chronic disease, currently stable. Hemoglobin is lower today at 8.7. Maintained on Aranesp. PLAN: Await repeat biopsy. Continue with the prednisone for now. Increase UF with hemodialysis. We will give 10 mEq of potassium today. MMODL / IJN: [id number] /
[2021-02-23] MEDS: CHOLECALCIFEROL 25 MCG (1000 IU) TABLET PO SCH (14:28)
[2021-02-23] MEDS: predniSONE 20 MG TAB PO SCH (14:29)
[2021-02-23] MEDS: CYANOCOBALAMIN 500 MCG TAB PO SCH (14:29)
[2021-02-24] MEDS: PANTOPRAZOLE 40 MG TABLET PO SCH (06:10)
[2021-02-24 07:50] LABS: Anisocytosis Slight; Basophils % (A) 0 %; Eosinophils % (A) 0 %; HCT 29.8 % (39.0-53.0); HGB 9.8 gm/dL (13.0-17.5); Lymphocytes % (A) 7 %; MCH 29.9 pg (25.0-35.0); MCHC 32.8 g/dL (31.0-37.0); MCV 91.1 fL (80.0-100.0); Mean Platelet Volume 8.8; Monocytes # (A) 0.6 k/uL (0-1.0); Monocytes % (A) 4 %; Neutrophils # (A) 12.9 k/uL (1.3-7.7); Neutrophils % (A) 88 %; Platelet Count 163 k/uL (150-450); RBC 3.28 m/uL (4.30-5.90); RDW 17.3 % (11.5-15.5); WBC 14.7 k/uL (3.8-10.6)
[2021-02-24 07:59] LABS: INR 1.2 (<1.2); Prothrombin Time 12.9 sec (9.0-12.0)
[2021-02-24 08:04] LABS: Calcium 8.2 mg/dL (8.4-10.2); Potassium 4.1 mmol/L (3.5-5.1)
[2021-02-24] MEDS: predniSONE 20 MG TAB PO SCH (09:07)
[2021-02-24] MEDS: HEPARIN SODIUM,PORCINE/PF 5,000 UNIT/0.5 ML SYRINGE SQ SCH (09:07)
[2021-02-24] MEDS: CHOLECALCIFEROL 25 MCG (1000 IU) TABLET PO SCH (09:07)
[2021-02-24] MEDS: CYANOCOBALAMIN 500 MCG TAB PO SCH (09:07)
[2021-02-24 09:12] VITALS: TEMP 97.9
[2021-02-24] MEDS ORDERED: DESMOPRESSIN ACETATE 22 MCG in SODIUM CHLORIDE 0.9% 50 ML IVPB ONE (11:00)
--- NOTE | 2021-02-24 13:59 | CT ---
EXAMINATION TYPE: CT biopsy renal RT DATE OF EXAM: 02/24/2021 HISTORY: Renal failure COMPARISON: Maximal barrier technique was utilized, hand hygiene obtained with soap and water. The skin overlyin g a suitable path to the lower pole right renal cortex was localized using CT and the overlying skin was prepped and draped. Lidocaine used for local anesthesia. A skin albino made with a scalpel. Usin g CT guidance, access was gained to the lower pole right renal cortex with a 18-gauge core needle thr [facility] 17-gauge guide. Core specimen submitted to cytology. 2 core biopsies were obtained, local franchesca raffy identified. Following the procedure no immediate complications. The patient is discharged in stable condition. Hemostasis achieved. IMPRESSION: SUCCESSFUL CT GUIDED RENAL BIOPSY. PATHOLOGY PENDING. [facility]
--- NOTE | 2021-02-24 14:15 | PN ---
PROGRESS NOTE Patient is seen for followup for acute kidney injury mostly secondary to vasculitis. Currently awaiting second attempt on kidney biopsy. Biopsy was not done yesterday. It is scheduled for today. PHYSICAL EXAMINATION: On examination today, blood pressure 133/82, heart rate 71 per minute. Patient is afebrile. Examination of the heart S1, S2. Examination of the lungs, decreased breath sounds at the bases. Abdomen is soft, nontender. Examination of lower extremities shows edema 2+ bilaterally. 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 LAB: Show sodium 132 from today, potassium 4.1, creatinine 2.2, hemoglobin 9.8 g/dL. ASSESSMENT: 1. Acute kidney injury mostly vasculitis, started on oral prednisone. Awaiting results of biopsy. Patient will need either Rituxan or Cytoxan based on his biopsy findings. His serologies were positive for p-ANCA. 2. Mild volume overload with lower extremity edema, also worsened with use of prednisone. Increase UF with hemodialysis tomorrow. 3. Hypertension, partly volume sensitive, currently controlled. 4. Anemia status post packed RBCs transfusion. No active bleeding noted at this time. PLAN: Hemodialysis in a.m. Patient could be discharged after the biopsy if he is stable and he can have his dialysis tomorrow as outpatient. We will follow up on the results of the biopsy. He should continue with oral prednisone for now. MMODL / IJN: [id number] /
[2021-02-24 18:26] VITALS: RESP 18
[2021-02-24 18:29] VITALS: BP 142/75; PULSE 77
--- NOTE | 2021-02-24 23:54 | P.DS ---
Providers Date of admission: 02/12/21 23:19 Expected date of discharge: 02/24/21 Attending physician: Aspen Benton Consults: 02/12/21 23:11 Consult Physician Routine Consulting Provider: Farhan Palmer Consult Reason/Comments: Acute Renal Failure Do you want consulting provider notified?: Yes 02/14/21 13:22 Consult Physician Stat Consulting Provider: Benjamin Gomez Consult Reason/Comments: permcath placement Do you want consulting provider notified?: Yes 02/16/21 10:40 Consult Physician Stat Consulting Provider: Kirk Leslie Consult Reason/Comments: kidney biopsy for ROCKY Do you want consulting provider notified?: Yes 02/17/21 10:37 Consult Physician Stat Consulting Provider: Benjamin Gomez Consult Reason/Comments: permacath placement Do you want consulting provider notified?: Yes 02/20/21 08:43 Consult Physician Stat Consulting Provider: Rosario Weems Consult Reason/Comments: vasculitis Do you want consulting provider notified?: Yes Primary care physician: Yovani Olguin Hospital Course: Final Diagnosis Assessment: -Renal failure acute on chronic: Secondary to possible nephritic syndrome and acute glomera nephritis secondary to vasculitis with P-ANCA -Elevated INR secondary to possible vitamin K deficiency patient will be supplemented with vitamin K -leukocytosis most likely reactive to steroids -acute blood loss anemia possibly secondary to chronic kidney disease -Acute Vasculitis -Anion gap and non-anion gap metabolic acidosis secondary to renal failure -Hyperkalemia secondary to renal failure -Hyperphosphatasemia -Hyponatremia: Secondary to renal failure. -DVT prophylaxis -Full code Discharge disposition Patient is being discharged in a stable condition with guarded prognosis to home. Patient will follow-up with Dr. Olguin in the outpatient setting upon discharge. Patient is to continue with high dose prednisone and close outpatient follow up with nephrology. Patient to continue with hemodialysis on Tuesday, tue, tuesday schedule. Total time taken is greater than 35 minutes. Hospital Course Patient is admitted for acute renal failure and presently on hemodialysis present creatinine is around 2.9. 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 Patient will get another kidney biopsy as his INR is 1.4, intervention radiology is not planning on doing the biopsy today and give her vitamin K patient is presently undergoing hemodialysis. 02/24/2021 Patient was seen in follow up and repeat INR is 1.2 this morning and will undergo renal biopsy and will need follow up with nephrology in the outpatient setting. Patient is requesting to go home. Currently no reports of chest pain, shortness of breath, or palpitations. Patient is afebrile. No reports of nausea or vomiting and patient is tolerating diet. Patient will be discharged home today. Physical exam: GENERAL: The patient is alert and oriented x3, well developed, well nourished. HEENT: Pupils are round and equally reacting to light. EOMI. No scleral icterus. No conjunctival pallor. CARDIOVASCULAR: S1 and S2 muffled PULMONARY: Diminished breath sounds bilaterally with no wheezing or crackles. Right chest wall permacath site and dressing is dry and intact with no bleeding noted. ABDOMEN: Soft, non-tender, non-distended, normoactive bowel sounds. No palpable organomegaly. MUSCULOSKELETAL: No joint swelling or deformity. EXTREMITIES: No cyanosis, clubbing, or pedal edema. NEUROLOGICAL: Gross neurological examination did not reveal any focal deficits. SKIN: No rashes. Please refer to medication reconciliation sheet for a list of medications. Patient Condition at Discharge: Stable Plan - Discharge Summary Discharge Rx Participant: No New Discharge Prescriptions: New predniSONE [Deltasone] 60 mg PO DAILY 30 Days #90 tab Darbepoetin Manohar [Aranesp] 40 mcg SQ Q7D each Pantoprazole [Protonix] 40 mg PO AC-BRKFST 30 Days #30 tab Continue Cholecalciferol [Vitamin D3 (25 Mcg = 1000 Iu)] 50 mcg PO DAILY Lutein 10 mg PO DAILY Cyanocobalamin [Vitamin B-12] 500 mcg PO DAILY Metoprolol Tartrate [Lopressor] 12.5 mg PO BID Discontinued Allopurinol [Zyloprim] 200 mg PO DAILY Discharge Medication List Cholecalciferol [Vitamin D3 (25 Mcg = 1000 Iu)] 50 mcg PO DAILY 10/19/20 [History] Cyanocobalamin [Vitamin B-12] 500 mcg PO DAILY 10/19/20 [History] Lutein 10 mg PO DAILY 10/19/20 [History] Metoprolol Tartrate [Lopressor] 12.5 mg PO BID 10/19/20 [History] Darbepoetin Manohar [Aranesp] 40 mcg SQ Q7D each 02/24/21 [Rx] Pantoprazole [Protonix] 40 mg PO AC-BRKFST 30 Days #30 tab 02/24/21 [Rx] predniSONE [Deltasone] 60 mg PO DAILY 30 Days #90 tab 02/24/21 [Rx] Follow up Appointment(s)/Referral(s): Yovani Olguin MD [Primary Care Provider] - 1-2 days (Office will call with appointment date and time ) [facility] [NON-STAFF] - 02/25/21 6:45 am (Dialysis Schedule is Mondays, Wednesdays and Fridays at 6:45AM. On day please arrive 30 Minutes early.) Farhan Palmer DO [STAFF PHYSICIAN] - 1 Week ( will see over at dialysis unit) Patient Instructions/Handouts: Chronic Kidney Disease (DC), Dialysis Diet (DC), Percutaneous Kidney Biopsy (DC), Anemia (DC) Activity/Diet/Wound Care/Special Instructions: Activity Limited until follow-up Follow-up with primary care provider on discharge Follow-up nephrology outpatient for biopsy results Continue taking steroids as prescribed Continue with hemodialysis Tuesday/Tuesday/Tuesday Continue low potassium low phosphorus renal diet Discharge Disposition: HOME SELF-CARE
--- NOTE | 2021-02-26 17:00 | P.CONS ---
History of Present Illness - Reason for Consult Consult date: 02/23/21 - Chief Complaint vasculitis Past Medical History Past Medical History: Atrial Fibrillation, Renal Disease Additional Past Medical History / Comment(s): Diverticulitis of intestine, calculus of GB, calculus of kidney, gout bilateral feet and toes. anemia, low kidney function History of Any Multi-Drug Resistant Organisms: None Reported Past Surgical History: No Surgical Hx Reported Past Anesthesia/Blood Transfusion Reactions: No Reported Reaction Additional Past Anesthesia/Blood Transfusion Reaction / Comm: Pt states he has never had surgery or blood transfusion. Past Psychological History: No Psychological Hx Reported Additional Psychological History / Comment(s): Pt lives alone. He is independent. He drives a car. He uses no assistive device or any home care. Smoking Status: Never smoker Past Alcohol Use History: None Reported Additional Past Alcohol Use History / Comment(s): Pt states he has never smoked. Past Drug Use History: None Reported - Past Family History Father Family Medical History: No Reported History Additional Family Medical History / Comment(s): Father lived until he was 93 yrs old. Mother Additional Family Medical History / Comment(s): Mother had Mediterarean anemia. Medications and Allergies Home Medications Medication Instructions Recorded Confirmed Type Cholecalciferol [Vitamin D3 (25 50 mcg PO DAILY 10/19/20 02/12/21 History Mcg = 1000 Iu)] Cyanocobalamin [Vitamin B-12] 500 mcg PO DAILY 10/19/20 02/12/21 History Lutein 10 mg PO DAILY 10/19/20 02/12/21 History Metoprolol Tartrate [Lopressor] 12.5 mg PO BID 10/19/20 02/12/21 History Darbepoetin Manohar [Aranesp] 40 mcg SQ Q7D each 02/24/21 Rx Pantoprazole [Protonix] 40 mg PO AC-BRKFST 30 Days #30 tab 02/24/21 Rx predniSONE [Deltasone] 60 mg PO DAILY 30 Days #90 tab 02/24/21 Rx Allergies Allergy/AdvReac Type Severity Reaction Status Date / Time ciprofloxacin [From Cipro] Allergy Rash/Hives Verified 02/12/21 23:25 levofloxacin Allergy Rash/Hives Verified 02/12/21 23:25 Penicillins Allergy Rash/Hives Verified 02/12/21 23:25 Sulfa (Sulfonamide Allergy Rash/Hives Verified 02/12/21 23:25 Antibiotics) Tetanus Vaccines and Toxoid Allergy Rash/Hives Verified 02/12/21 23:25 [Tetanus Vaccines & Toxoid] Results CBC & Chem 7: 02/24/21 06:55 02/24/21 06:55 Assessment and Plan Assessment: This is a 75-year-old male seen in [facility] as consult for evaluation of vasculitis. The patient was seen in the emergency room on 02/12 and was admitted for acute renal failure with hyperkalemia and hyperphosphatemia and metabolic acidosis. He also was found to have anemia Labs showed a positive myeloperoxidase antibody and since the urine showed hematuria and proteinuria he was thought to vasculitis and a kidney biopsy was done but the sample size was too small and another biopsy will be done tomorrow. He is currently on prednisone 60 mg and has been on dialysis and has been on Aranesp. The patient is a poor historian and seems to be quite irritated at seeing another doctor. He has had multiple hospitalizations in the last few months with worsening renal function and also has had weight loss of more than 30 pounds. On exam the patient looks chronically ill, his vital signs is stable and is sitting up in bed in no acute distress. He seems to have no synovitis in any joint and fairly good range of motion of all the joints. Respiratory, cardiovascular, neurological exam normal. Lower extremity 1+ edema bilaterally. Labs from 02/23/21 showed white cell count of 14.7 with slightly elevated neutrophils, hemoglobin 8.7, INR high at 1.4, creatinine 2.65 improved from as high at 6 on admission. Labs from 02/16/21 shows a negative SARA, ANCA negative for C ANCA and P ANCA, ME 3 negative but MPO slightly positive at 37, C3/C4 negative, double-stranded DNA negative, GBS antibodies negative. Hepatitis panel negative, serum and urine immunofixation negative For now the patient can continue the prednisone and will await biopsy results. I will see him as an outpatient in about 10 days to review the biopsy results and he is to continue prednisone 60 mg on discharge. We will discuss immunosuppressive therapy. The patient is not covid vaccinated and I discussed That he is at high risk of complications of Covid along with if he start him on immunosuppressive therapy the patient did not want to have any to do with discussing the vaccination. I will discuss this further with him as an outpatient. Thank you for allowing me to Participate in the care of this patient. (1) ANCA-associated vasculitis Status: Acute Code(s): I77.6 - ARTERITIS, UNSPECIFIED SNOMED Code(s): 410584353 (2) ARF (acute renal failure) Status: Acute Code(s): N17.9 - ACUTE KIDNEY FAILURE, UNSPECIFIED SNOMED Code(s): 95114259
== END 2021-02-24 18:39 | disposition home or self-care (01) | DRG 683 ==
LOC: EC 17:58 → 3SCARD 23:19
PROVIDERS: ADMIT Hospitalist; ATTEND Hospitalist
PROC: 06HY33Z Insertion of Infusion Device into Lower Vein, Percutaneous Approach (ICD-10-PCS; 2021-02-12)
PROC: 5A1D70Z Performance of Urinary Filtration, Intermittent, Less than 6 Hours Per Day (ICD-10-PCS; 2021-02-12)
PROC: 0TB03ZX Excision of Right Kidney, Percutaneous Approach, Diagnostic (ICD-10-PCS; 2021-02-16)
PROC: 30243N1 Transfusion of Nonautologous Red Blood Cells into Central Vein, Percutaneous Approach (ICD-10-PCS; 2021-02-18)
PROC: 02HV33Z Insertion of Infusion Device into Superior Vena Cava, Percutaneous Approach (ICD-10-PCS; principal; 2021-02-19 09:00)
PROC: 06PYX3Z Removal of Infusion Device from Lower Vein, External Approach (ICD-10-PCS; principal; 2021-02-19 09:00)
DX: N17.0 Acute kidney failure with tubular necrosis (principal); E87.1 Hypo-osmolality and hyponatremia; E87.2 Acidosis; D62 Acute posthemorrhagic anemia; E83.39 Other disorders of phosphorus metabolism; D63.1 Anemia in chronic kidney disease; N18.4 Chronic kidney disease, stage 4 (severe); Z20.822 Contact with and (suspected) exposure to COVID-19; I12.9 Hypertensive chronic kidney disease with stage 1 through stage 4 chronic kidney disease, or unspecified chronic kidney disease; I77.89 Other specified disorders of arteries and arterioles; E87.5 Hyperkalemia; E87.6 Hypokalemia; R31.9 Hematuria, unspecified; E86.1 Hypovolemia; E87.70 Fluid overload, unspecified; R79.1 Abnormal coagulation profile; D72.829 Elevated white blood cell count, unspecified; T38.0X5A Adverse effect of glucocorticoids and synthetic analogues, initial encounter; M10.9 Gout, unspecified; Z86.79 Personal history of other diseases of the circulatory system; Z87.442 Personal history of urinary calculi; Z79.899 Other long term (current) drug therapy; Z87.19 Personal history of other diseases of the digestive system; Z88.1 Allergy status to other antibiotic agents; Z88.0 Allergy status to penicillin; Z88.2 Allergy status to sulfonamides; Z88.7 Allergy status to serum and vaccine; Z83.2 Family history of diseases of the blood and blood-forming organs and certain disorders involving the immune mechanism; Z99.2 Dependence on renal dialysis; Z87.441 Personal history of nephrotic syndrome
CPT/HCPCS: 36415; 36556; 36558; 50200; 71045; 76937; 76942; 77001; 77012; 80048; 80053; 81001; 83516; 83735; 83970; 84100; 84550; 85025; 85610; 85652; 86038; 86140; 86431; 86704; 86706; 86850; 86900; 86901; 86920; 87077; 87086; 87186; 87340; 87535; 87635; 90935; 94760; 99285

== ENCOUNTER → 2022-11-09 | Outpatient (CLI) | payer MEDICARE ==
[~2022-11-09] MED LIST: ACETAMINOPHEN TAB 500 MG TAB PO NR; RITUXIMAB ARRX IV NR; SODIUM CHLORIDE 0.9% 500 ML 500 ML in EMPTY BAG 1 BAG IV PRN; SODIUM CHLORIDE 0.9% IV NR; diphenhydrAMINE 50 MG/ML 1 ML VIAL IVP NR; methylPREDNISolone SOD SUCCI 125 MG/2 ML VIAL IVP NR
[2022-11-09 08:59] VITALS: RESP 16; TEMP 98.5
[2022-11-09 12:05] VITALS: BP 136/77; PULSE 64
== END ==
LOC: PROCWHC3 08:38
PROVIDERS: ATTEND Nurse Practitioner Family
DX: I77.82 Antineutrophilic cytoplasmic antibody [ANCA] vasculitis (principal)
CPT/HCPCS: 96365; 96366; 96375; J1200; J2930; Q5123

== ENCOUNTER → 2023-07-08 | Outpatient (CLI) | payer MEDICARE ==
[2023-07-08 11:24] LABS: Chol/HDL Ratio 5.96 Ratio; LDL Cholesterol,Calculated 166.1 mg/dL (0.0-131.0)
== END | disposition home or self-care (01) ==
LOC: LABWHC1 07:06
PROVIDERS: ATTEND Nurse Practitioner
DX: I10 Essential (primary) hypertension (principal); E78.5 Hyperlipidemia, unspecified
CPT/HCPCS: 36415; 80061

== ENCOUNTER 2023-09-01 21:34 | Emergency (ER) | payer MEDICARE ==
[2023-09-01 21:59] LABS: Basophils % (A) 0 %; Eosinophils # (A) 0.4 k/uL (0-0.7); Eosinophils % (A) 6 %; HGB 13.6 gm/dL (13.0-17.5); Lymphocytes # (A) 1.4 k/uL (1.0-4.8); Lymphocytes % (A) 21 %; MCH 32.3 pg (25.0-35.0); MCHC 33.3 g/dL (31.0-37.0); MCV 97.1 fL (80.0-100.0); Mean Platelet Volume 8.3; Monocytes # (A) 0.4 k/uL (0-1.0); Monocytes % (A) 7 %; Neutrophils # (A) 4.2 k/uL (1.3-7.7); Neutrophils % (A) 63 %; Platelet Count 158 k/uL (150-450); RBC 4.22 m/uL (4.30-5.90); RDW 13.6 % (11.5-15.5); WBC 6.7 k/uL (3.8-10.6)
[2023-09-01 22:07] LABS: Partial Thromboplastin Time 24.3 sec (22.0-30.0); Prothrombin Time 10.9 sec (10.0-12.5)
[2023-09-01 22:11] LABS: ALT 9 U/L (4-49); AST 24 U/L (17-59); African American GFR (CKD) 31 (>60 ml/min/1.73 sqM); Albumin 4.2 g/dL (3.5-5.0); Alkaline Phosphatase 86 U/L (38-126); Anion Gap 7 mmol/L; Blood Urea Nitrogen 41 mg/dL (9-20); Calcium 9.3 mg/dL (8.4-10.2); Carbon Dioxide 20 mmol/L (22-30); Chloride 111 mmol/L (98-107); Glucose 103 mg/dL (74-99); Magnesium 2.2 mg/dL (1.6-2.3); Non-African American GFR(CKD) 27 (>60 ml/min/1.73 sqM); Potassium 4.4 mmol/L (3.5-5.1); Sodium 138 mmol/L (137-145); Total Bilirubin 0.7 mg/dL (0.2-1.3); Total Protein 6.6 g/dL (6.3-8.2)
[2023-09-01 22:25] VITALS: TEMP 98.2
[2023-09-01 22:26] VITALS: RESP 16
--- NOTE | 2023-09-01 23:06 | XR ---
EXAM: XR Chest, 2 Views CLINICAL HISTORY: ITS.REASON XR Reason: Pain TECHNIQUE: Frontal and lateral views of the chest. COMPARISON: No relevant prior studies available. FINDINGS: Lungs: Unremarkable. No consolidation. Pleural space: Unremarkable. No pneumothorax. Heart: Unremarkable. No cardiomegaly. Mediastinum: Unremarkable. Normal mediastinal contour. Bones/joints: Unremarkable. No acute fracture. IMPRESSION: No consolidation.
--- NOTE | 2023-09-01 23:13 | ED ---
General Adult HPI - General Chief complaint: Dizziness Stated complaint: Dizziness Abd Pain Time Seen by Provider: 09/01/23 22:08 Source: patient Mode of arrival: ambulatory Limitations: no limitations - History of Present Illness Initial comments: Edgar is a 78yo M with past medical history of chronic kidney disease who presents to the ER today with a complaint of feeling like something's not right in his head and he is getting nauseated. Patient states he feels like there is dizziness in his head though he does not feel dizzy or lightheaded. He states he suffers from chronic sinus pressure and allergies but this is unchanged today. Patient also states that since 5 PM he has been feeling nauseated but has not vomited. No abdominal pain. No chest pain or shortness of breath. - Related Data Home Medications Medication Instructions Recorded Confirmed Metoprolol Tartrate [Lopressor] 12.5 mg PO BID 10/19/20 11/09/22 allopurinoL [Zyloprim] 100 tab PO DAILY 04/07/21 11/09/22 Cholecalciferol (Vitamin D3) 2,000 unit PO DAILY 11/09/22 11/09/22 [Vitamin D3 (50 Mcg = 2000 Iu) Chew Tab] Cyanocobalamin (Vitamin B-12) 1,000 mcg PO DAILY 11/09/22 11/09/22 [Vitamin B-12] Lutein/Zeaxanthin 1 each PO DAILY 11/09/22 11/09/22 [Lutein-Zeaxanthin 20-4 mg Softgel] Allergies Allergy/AdvReac Type Severity Reaction Status Date / Time ciprofloxacin [From Cipro] Allergy Rash/Hives Verified 09/01/23 21:43 levofloxacin Allergy Rash/Hives Verified 09/01/23 21:43 Penicillins Allergy Rash/Hives Verified 09/01/23 21:43 Sulfa (Sulfonamide Allergy Rash/Hives Verified 09/01/23 21:43 Antibiotics) Tetanus Vaccines and Toxoid Allergy Rash/Hives Verified 09/01/23 21:43 [Tetanus Vaccines & Toxoid] Review of Systems ROS Statement: Those systems with pertinent positive or pertinent negative responses have been documented in the HPI. ROS Other: All systems not noted in ROS Statement are negative. Past Medical History Past Medical History: Atrial Fibrillation, Renal Disease Additional Past Medical History / Comment(s): Diverticulitis of intestine, calculus of GB, calculus of kidney, gout bilateral feet and toes. anemia, low kidney function, Anca positive vasculitis History of Any Multi-Drug Resistant Organisms: None Reported Past Surgical History: No Surgical Hx Reported Past Anesthesia/Blood Transfusion Reactions: No Reported Reaction Additional Past Anesthesia/Blood Transfusion Reaction / Comment(s): Pt states he has never had surgery or blood transfusion. Past Psychological History: No Psychological Hx Reported Smoking Status: Never smoker Past Alcohol Use History: None Reported Past Drug Use History: None Reported - Past Family History Father Family Medical History: No Reported History Additional Family Medical History / Comment(s): Father lived until he was 93 yrs old. Mother Additional Family Medical History / Comment(s): Mother had Mediterarean anemia. General Exam - General Exam Comments Initial Comments: Physical Exam GENERAL: Patient is well-developed and well-nourished. Patient is nontoxic and well- hydrated and is in no distress. HENT: Normocephalic, Atraumatic. EYES: PERRL, EOMI PULMONARY: Unlabored respirations. No audible rales rhonchi or wheezing was noted. CARDIOVASCULAR: There is a regular rate and rhythm without any murmurs gallops or rubs. ABDOMEN: Soft and nontender with normal bowel sounds. SKIN: Skin is clear with no lesions or rashes and otherwise unremarkable. : Deferred NEUROLOGIC: Patient is alert and oriented x3. Moving all extremities spontaneously MUSCULOSKELETAL: Normal extremities with adequate strength and full range of motion. No lower extremity swelling or edema. No calf tenderness. PSYCHIATRIC: Normal psychiatric evaluation. Limitations: no limitations Course Vital Signs 09/01/23 09/01/23 09/02/23 21:40 22:25 01:25 Temperature 98.2 F Pulse Rate 60 64 62 Respiratory 20 16 16 Rate Blood Pressure 157/81 144/86 133/82 O2 Sat by Pulse 99 98 97 Oximetry EKG Findings - EKG Comments: EKG Findings:: EKG interpreted by ok EKG obtained at 2147 rate is 61 rhythm is sinus normal axis, normal intervals, MD 180 QRS 104, QTc [address] elevations or depressions no evidence of ischemia, infarction or arrhythmia. Medical Decision Making - Medical Decision Making Was pt. sent in by a medical professional or institution (, PA, INTERNET MARKETING SPECIALIST, urgent care, hospital, or shelter...) When possible be specific @ -No Did you speak to anyone other than the patient for history (EMS, parent, family, police, friend...)? What history was obtained from this source @ -No Did you review nursing and triage notes (agree or disagree)? Why? @ -I reviewed and agree with nursing and triage notes Were old charts reviewed (outside hosp., previous admission, EMS record, old EKG, old radiological studies, urgent care reports/EKG's, shelter records)? Report findings @ -No old charts were reviewed Differential Diagnosis (chest pain, altered mental status, abdominal pain women, abdominal pain men, vaginal bleeding, weakness, fever, dyspnea, syncope, headache, dizziness, GI bleed, back pain, seizure, CVA, palpatations, mental health)? @ -Differential Dizziness: Benign paroxysmal positional Vertigo, Menieres disease, otitis media, acoustic neuroma, vertebrobasilar insufficiency, cerebellar stroke, encephalitis, hypov olemic, arrhythmia, coronary artery syndrome, anemia, this is not meant to be an all-inclusive list EKG interpreted by me (3pts min.). @ -As above X-rays interpreted by me (1pt min.). @ -Chest x-ray with no consolidations pleural effusions pneumothorax or widened mediastinum CT interpreted by me (1pt min.). @ -No masses or bleeds U/S interpreted by me (1pt. min.). @ -None done What testing was considered but not performed or refused? (CT, X-rays, U/S, labs)? Why? @ -None What meds were considered but not given or refused? Why? @ -None Did you discuss the management of the patient with other professionals (professionals i.e. , PA, INTERNET MARKETING SPECIALIST, lab, RT, psych nurse, high school social science teacher, electrical assistant, teacher, recruitment officer, caseworker intake)? Give summary @ -No Was smoking cessation discussed for >3mins.? @ -No Was critical care preformed (if so, how long)? @ -No Were there social determinants of health that impacted care today? How? (Homelessness, low income, unemployed, alcoholism, drug addiction, transportation, low edu. Level, literacy, decrease access to med. care, correction, rehab)? @ -No Was there de-escalation of care discussed even if they declined (Discuss DNR or withdrawal of care, Hospice)? DNR status @ -No What co-morbidities impacted this encounter? (DM, HTN, Smoking, COPD, CAD, Ca ncer, CVA, ARF, Chemo, Hep., AIDS, mental health diagnosis, sleep apnea, morbid obesity)? @ -None Was patient admitted / discharged? Hospital course, mention meds given and route, prescriptions, significant lab abnormalities, going to OR and other pertinent info. @ -Discharged The patient was seen and evaluated, history was obtained from the patient. Patient with vague complaint of what he describes as dizziness in his head without any actual vertiginous symptoms. Patient had a headache today but reports chronic sinus congestion and headache. Head CT and labs were obtained and were unremarkable. Chest x-ray was unremarkable and EKG was unremarkable. Patient was on monitoring analyst without any acute findings. Patient was able to ambulate throughout the department reported feeling much better no further nausea he had no not vomiting here in the ER and was subsequently discharged ho ok in stable condition. Undiagnosed new problem with uncertain prognosis? @ -No Drug Therapy requiring intensive monitoring for toxicity (Heparin, Nitro, Insulin, Cardizem)? @ -No Were any procedures done? @ -No Diagnosis/symptom? @ -Headache Acute, or Chronic, or Acute on Chronic? @ -Default Uncomplicated (without systemic symptoms) or Complicated (systemic symptoms)? @ -Default Side effects of treatment? @ -No Exacerbation, Progression, or Severe Exacerbation? @ -No Poses a threat to life or bodily function? How? (Chest pain, [place], [place], pneumonia, PE, COPD, DKA, ARF, appy, cholecystitis, CVA, Diverticulitis, Homicidal, Suicidal, threat to staff... and all critical care pts) @ -No - Lab Data Result diagrams: 09/01/23 21:51 09/01/23 21:51 Lab Results 09/01/23 09/01/23 09/01/23 Range/Units 21:51 21:51 21:51 WBC 6.7 (3.8-10.6) k/uL RBC 4.22 L (4.30-5.90) m/uL Hgb 13.6 (13.0-17.5) gm/dL Hct 41.0 (39.0-53.0) % MCV 97.1 (80.0-100.0) fL MCH 32.3 (25.0-35.0) pg MCHC 33.3 (31.0-37.0) g/dL RDW 13.6 (11.5-15.5) % Plt Count 158 (150-450) k/uL MPV 8.3 Neutrophils % 63 % Lymphocytes % 21 % Monocytes % 7 % Eosinophils % 6 % Basophils % 0 % Neutrophils # 4.2 (1.3-7.7) k/uL Lymphocytes # 1.4 (1.0-4.8) k/uL Monocytes # 0.4 (0-1.0) k/uL Eosinophils # 0.4 (0-0.7) k/uL Basophils # 0.0 (0-0.2) k/uL PT 10.9 (10.0-12.5) sec INR 1.0 (<1.2) APTT 24.3 (22.0-30.0) sec Sodium 138 (137-145) mmol/L Potassium 4.4 (3.5-5.1) mmol/L Chloride 111 H (98-107) mmol/L Carbon Dioxide 20 L (22-30) mmol/L Anion Gap 7 mmol/L BUN 41 H (9-20) mg/dL Creatinine 2.28 H (0.66-1.25) mg/dL Est GFR (CKD-EPI)AfAm 31 (>60 ml/min/1.73 sqM) Est GFR (CKD-EPI)NonAf 27 (>60 ml/min/1.73 sqM) Glucose 103 H (74-99) mg/dL Calcium 9.3 (8.4-10.2) mg/dL Magnesium 2.2 (1.6-2.3) mg/dL Total Bilirubin 0.7 (0.2-1.3) mg/dL AST 24 (17-59) U/L ALT 9 (4-49) U/L Alkaline Phosphatase 86 (38-126) U/L Troponin I (0.000-0.034) ng/mL Total Protein 6.6 (6.3-8.2) g/dL Albumin 4.2 (3.5-5.0) g/dL 09/01/23 Range/Units 21:51 WBC (3.8-10.6) k/uL RBC (4.30-5.90) m/uL Hgb (13.0-17.5) gm/dL Hct (39.0-53.0) % MCV (80.0-100.0) fL MCH (25.0-35.0) pg MCHC (31.0-37.0) g/dL RDW (11.5-15.5) % Plt Count (150-450) k/uL MPV Neutrophils % % Lymphocytes % % Monocytes % % Eosinophils % % Basophils % % Neutrophils # (1.3-7.7) k/uL Lymphocytes # (1.0-4.8) k/uL Monocytes # (0-1.0) k/uL Eosinophils # (0-0.7) k/uL Basophils # (0-0.2) k/uL PT (10.0-12.5) sec INR (<1.2) APTT (22.0-30.0) sec Sodium (137-145) mmol/L Potassium (3.5-5.1) mmol/L Chloride (98-107) mmol/L Carbon Dioxide (22-30) mmol/L Anion Gap mmol/L BUN (9-20) mg/dL Creatinine (0.66-1.25) mg/dL Est GFR (CKD-EPI)AfAm (>60 ml/min/1.73 sqM) Est GFR (CKD-EPI)NonAf (>60 ml/min/1.73 sqM) Glucose (74-99) mg/dL Calcium (8.4-10.2) mg/dL Magnesium (1.6-2.3) mg/dL Total Bilirubin (0.2-1.3) mg/dL AST (17-59) U/L ALT (4-49) U/L Alkaline Phosphatase (38-126) U/L Troponin I <0.012 (0.000-0.034) ng/mL Total Protein (6.3-8.2) g/dL Albumin (3.5-5.0) g/dL Disposition Clinical Impression: Headache Disposition: HOME SELF-CARE Condition: Stable Is patient prescribed a controlled substance at d/c from ED?: No Referrals: None,Stated [Primary Care Provider] - 1-2 days
--- NOTE | 2023-09-02 00:54 | CT ---
EXAM: CT Head Without Intravenous Contrast CLINICAL HISTORY: ITS.REASON CT Reason: headache TECHNIQUE: Axial computed tomography images of the head/brain without intravenous contrast. CTDI is 49.1 mGy and DLP is 1154.4 mGy-cm. This CT exam was performed using one or more of the following dose reduction techniques: automated exposure control, adjustment of the mA and/or kV according to patient size, and/or use of iterative reconstruction technique. COMPARISON: No relevant prior studies available. FINDINGS: No acute intracranial hemorrhage. No midline shift or mass effect. The territorial haley-white matter differentiation is maintained throughout. Age-related cerebral volume loss. Periventricular and subcortical white matter hypoattenuation, consistent with chronic microangiopathy. The visualized orbits appear grossly unremarkable. The calvarium is intact. The visualized paranasal sinuses and mastoid air cells are grossly clear. IMPRESSION: No acute intracranial hemorrhage, midline shift, or mass effect.
[2023-09-02 02:04] VITALS: BP 133/82; PULSE 62
== END 2023-09-02 03:52 | disposition home or self-care (01) ==
LOC: EC 21:34
DX: R51.9 Headache, unspecified (principal); Z88.0 Allergy status to penicillin; Z88.7 Allergy status to serum and vaccine; Z88.8 Allergy status to other drugs, medicaments and biological substances; Z88.1 Allergy status to other antibiotic agents; Z88.2 Allergy status to sulfonamides
CPT/HCPCS: 36415; 70450; 71046; 80053; 83735; 84484; 85025; 85610; 85730; 99284

== ENCOUNTER → 2023-09-27 | Outpatient (CLI) | payer MEDICARE ==
[2023-09-27] MEDS: SODIUM CHLORIDE 0.9% 500 ML 500 ML in EMPTY BAG 1 BAG IV PRN (09:12)
[2023-09-27] MEDS: methylPREDNISolone SOD SUCCI 125 MG/2 ML VIAL IV NR (09:14)
[2023-09-27] MEDS: ACETAMINOPHEN TAB 500 MG TAB PO NR (09:17)
[2023-09-27] MEDS: diphenhydrAMINE 50 MG/ML 1 ML VIAL IVP NR (09:17)
[2023-09-27 09:20] VITALS: RESP 16; TEMP 97.8
[2023-09-27] MEDS: RITUXIMAB ABBS IV NR (09:53)
[2023-09-27] MEDS: SODIUM CHLORIDE 0.9% IV NR (09:53)
[2023-09-27 11:20] VITALS: BP 103/64; PULSE 59
== END ==
LOC: PROCWHC3 08:37
PROVIDERS: ATTEND Internal Medicine
DX: I77.82 Antineutrophilic cytoplasmic antibody [ANCA] vasculitis (principal)
CPT/HCPCS: 96375; 96413; 96415; J1200; J2919; Q5115

== ENCOUNTER → 2024-03-13 | Outpatient (CLI) | payer MEDICARE ==
--- NOTE | 2024-03-13 14:06 | US ---
EXAMINATION TYPE: US kidneys/renal and bladder DATE OF EXAM: 03/13/2024 COMPARISON: 02/24/2021 - CT Renal Biopsy 02/16/2021 - US Renal Biopsy 10/07/2020 - US Renal CLINICAL INDICATION: Male, 78 years old with history of N18.32 Chronic kidney disease; Patient denies any signs or symptoms TECHNIQUE: Grayscale imaging of the bilateral kidneys and urinary bladder: FINDINGS: EXAM MEASUREMENTS: Right Kidney: 8.5 x 4.6 x 4.3 cm Left Kidney: 9.0 x 4.5 x 4.5 cm Post Void Residual Volume: NA mL Right Kidney: wnl, no evidence for hydronephrosis, mass or renal calculus. Left Kidney: wnl, no evidence for hydronephrosis, mass or renal calculus. Bladder: Not fully distended WNL as visualized Bilateral Jets seen: Not able to asses Normal Post Void Residual: 55 mL residual - only 88 mL There is no evidence for hydronephrosis at this point in time. Corticomedullary differentiation is ma intained bilaterally. No nephrolithiasis is seen. No masses are identified. The urinary bladder is anechoic. IMPRESSION: 1. No hydronephrosis or nephrolithiasis. 2. Postvoid residual of 55 mL. [facility], , 03/13/2024 2:04 PM
== END | disposition home or self-care (01) ==
LOC: RADUSWWP 13:24
PROVIDERS: ATTEND Internal Medicine
DX: N18.32 Chronic kidney disease, stage 3b (principal); R39.198 Other difficulties with micturition
CPT/HCPCS: 76770